=== PATIENT | female | born 1955 | race Caucasian/White ===

== ENCOUNTER 2018-01-21 10:29 | Observation (INO) ==
--- NOTE | 2018-01-21 10:59 | Emergency Department Note ---
ED Disposition Clinical Impression: COPD (chronic obstructive pulmonary disease), Tobacco use, Pneumonia Clinical Impression: (Ruled Out): DNR (do not resuscitate) Disposition: Still a Patient Condition on Discharge: Fair - Critical Care Critical Care Time: No Attestation: On 01/21/18, the high probability of a clinically significant, sudden or life threatening deterioration of the following system(s) required my full and direct attention, intervention and personal management. The time I documented below is in addition to time spent performing reported procedures but includes the following listed in this critical care notation. Medical Decision Making - Mike Inquiry Pt receiving controlled substance: No Mike was queried for this patient: No Vital Signs: 01/21/18 10:35 01/21/18 10:45 01/21/18 11:19 Temperature 97.8 F 98.1 F Temperature Source Oral Oral Pulse Rate 109 H Pulse Rate [Left Radial] 110 H 103 H Respiratory Rate 24 22 Blood Pressure [Right Arm] 150/91 139/73 Blood Pressure Mean [Right Arm] 110 95 Blood Pressure Source [Right Arm] Automatic Cuff Automatic Cuff Blood Pressure Position [Right Arm] Sitting Sitting 02 Sat by Pulse Oximetry 97 95 99 Oxygen Delivery Method Nasal Cannula Room Air Oxygen Flow Rate (LPM) 2 01/21/18 12:20 01/21/18 14:15 Temperature 97.5 F L 97.8 F Temperature Source Oral Oral Pulse Rate Pulse Rate [Left Radial] 104 H 102 H Respiratory Rate 20 20 Blood Pressure [Right Arm] 133/71 140/74 Blood Pressure Mean [Right Arm] 91 96 Blood Pressure Source [Right Arm] Automatic Cuff Automatic Cuff Blood Pressure Position [Right Arm] Sitting Sitting 02 Sat by Pulse Oximetry 99 99 Oxygen Delivery Method Room Air Nasal Cannula Oxygen Flow Rate (LPM) 4 - Lab Data Lab Results 01/21/18 10:45: WBC 12.3 H, RBC 4.88, Hgb 15.0, Hct 47.3 H, MCV 96.8, MCH 30.8, MCHC 31.8, RDW 13.4, Plt Count 390, MPV 8.5, Neut % (Auto) 82.1 H, Lymph % (Auto ) 12.8, Harvey % (Auto) 3.9, Eos % (Auto) 0.9, Baso % (Auto) 0.3, Neut # (Auto) 10.1 H, Lymph # (Auto) 1.6, Harvey # (Auto) 0.5, Eos # (Auto) 0.1, Baso # (Auto) 0.0 01/21/18 10:45: Sodium 139, Potassium 3.7, Chloride 101, Carbon Dioxide 28, Anion Gap 13.7, BUN 10, Creatinine 0.76, Estimated Creat Clear 30, Estimated GFR 77, Est GFR ( Amer) 94, Glucose 119 H, Calcium 9.4, Total Bilirubin 0.4, AST 21, ALT 24, Alkaline Phosphatase 114, Total Protein 8.6 H, Albumin 3.5 , Globulin 5.1 H, Albumin/Globulin Ratio 0.7 L 01/21/18 10:45: Lactic Acid 2.4 H 01/21/18 10:45: Urine Color Yellow, Urine Appearance Clear, Urine pH 5.0, Ur Specific [place] <= 1.005, Urine Protein Negative, Urine Glucose (UA) Negative, Urine Ketones Negative, Urine Blood Negative, Urine Nitrate Negative, Urine Bilirubin Negative, Urine Urobilinogen 0.2, Ur Leukocyte Esterase Negative, Urine WBC Occasional, Ur Squamous Epith Cells 3-5, Urine Bacteria Trace, Hyaline Casts Occasional, Urine Mucus 1+ 01/21/18 10:45: Total Creatine Kinase 83, CK-MB (CK-2) 1.4, CK-MB (CK-2) Rel Index 1.7, Troponin I < 0.02 01/21/18 10:45: D-Dimer 1850 H* 01/21/18 10:45: B-Natriuretic Peptide 122 H 01/21/18 12:23: Specimen Source Right brachial, O2 % 28%, ABG pH 7.39, ABG pCO2 38.4, ABG pO2 81.3, ABG HCO3 22.6, ABG Total CO2 23.7, ABG O2 Saturation 96, ABG Base Excess -2.4, Sam Test Non applicable Result diagrams: 01/21/18 10:45 01/21/18 10:45 Orders (Tests/Meds): ED MEDICATIONS Generic Name Dose Route Start Last Admin Trade Name Freq PRN Reason Stop Dose Admin Albuterol/Ipratropium 3 ml 01/21/18 14:22 Duoneb 3ml Neb IH 02/20/18 14:15 Q4HP PRN Shortness Of Breath Famotidine 20 mg 01/21/18 21:00 Pepcid 20mg/2ml Vial IV 02/20/18 20:59 BID REPLACED BY [facility] Sodium Chloride 1,000 mls @ 50 mls/hr 01/21/18 14:22 Sod Chlor 0.9% 1000ml Bag IV 02/20/18 14:21 .Q20H ZENY Azithromycin 500 mg/ Sodium 250 mls @ 250 mls/hr 01/21/18 14:30 Chloride IV 02/04/18 14:29 Q24H REPLACED BY [facility] Protocol Methylprednisolone Sodium Succinate 40 mg 01/21/18 14:30 Methylprednisolone Sod Succinate 40mg Vial IV 02/20/18 14:29 Q6H REPLACED BY [facility] Morphine Sulfate 1 mg 01/21/18 14:22 Morphine 4mg/Ml Syringe IV 02/20/18 14:21 Q4HP PRN Moderate Pain Nicotine 21 mg 01/21/18 14:22 Nicoderm 21mg/24hr Patch TD 02/20/18 14:21 DAILYP PRN Nicotine Cravings Ondansetron HCl 4 mg 01/21/18 14:22 Zofran 4mg/2ml Vial IV 02/20/18 14:21 Q8HP PRN Nausea Sodium Chloride 10 ml 01/21/18 14:22 Saline Flush 10ml Syringe IV 02/20/18 14:21 NEEDED PRN Maintain IV Site Sodium Chloride 8 ml 01/21/18 21:00 Saline Flush 10ml Syringe IV 02/20/18 20:59 BID ZENY Discontinued Medications Generic Name Dose Route Start Last Admin Trade Name Freq PRN Reason Stop Dose Admin Albuterol/Ipratropium 3 ml 01/21/18 10:40 01/21/18 10:49 Duoneb 3ml Neb 01/21/18 10:41 3 ml ONCE ONE Administration Albuterol/Ipratropium 3 ml 01/21/18 11:15 01/21/18 12:40 Duoneb 3ml Neb 02/20/18 11:14 3 ml Q1H ZENY Administration Albuterol/Ipratropium 3 ml 01/21/18 14:16 Duoneb 3ml Neb 02/20/18 14:15 Q4HP PRN Shortness Of Breath Famotidine 20 mg 01/21/18 21:00 01/21/18 11:12 Pepcid 20mg/2ml Vial IV 02/20/18 20:59 20 mg BID ZENY Administration Famotidine 20 mg 01/21/18 21:00 Pepcid 20mg/2ml Vial IV 02/20/18 20:59 BID ZENY Ceftriaxone Sodium 1 gm/ 50 mls @ 100 mls/hr 01/21/18 11:15 01/21/18 11:14 Sodium Chloride IV 02/04/18 11:14 100 mls/hr Q24H ZENY Administration Protocol Sodium Chloride 500 mls @ 999 mls/hr 01/21/18 11:15 01/21/18 11:12 Sod Chlor 0.9% 1000ml Bag IV 01/21/18 11:45 999 mls/hr .Q31M ZENY Administration Azithromycin 500 mg/ Sodium 250 mls @ 250 mls/hr 01/21/18 14:30 01/21/18 14: 35 Chloride IV 02/04/18 14:29 250 mls/hr Q24H ZENY Administration Protocol Iopamidol 75 ml 01/21/18 14:43 01/21/18 14:45 [id number]; 75ml Vial IV 01/21/18 14:44 75 ml ONCE ONE Administration Methylprednisolone Sodium Succinate 125 mg 01/21/18 11:04 01/21/18 11:12 Solu-Medrol 125mg/2ml Vial IV 01/21/18 11:05 125 mg ONCE ONE Administration Methylprednisolone Sodium Succinate 40 mg 01/21/18 14:30 Methylprednisolone Sod Succinate 40mg Vial IV 02/20/18 14:29 Q6H ZENY Morphine Sulfate 1 mg 01/21/18 12:11 01/21/18 12:18 Morphine 2mg/Ml Syringe IV 01/21/18 12:12 1 mg ONCE ONE Administration Nitroglycerin 0.5 gm 01/21/18 11:15 01/21/18 11:15 Nitroglycerin 1 Inch Oint Udp TD 02/20/18 11:14 0.5 gm Q8H ZENY Administration Sodium Chloride 8 ml 01/21/18 11:04 01/21/18 11:12 Saline Flush 10ml Syringe IV 01/21/18 11:05 8 ml ONCE ONE Administration Sodium Chloride 8 ml 01/21/18 21:00 Saline Flush 10ml Syringe IV 02/20/18 20:59 BID ZENY Sodium Chloride 10 ml 01/21/18 14:43 01/21/18 14:45 Rad-Saline Flush 10ml Syringe IV 01/21/18 14:44 10 ml ONCE ONE Administration Sodium Chloride 50 ml 01/21/18 14:43 01/21/18 14:44 Rad-Ns 50ml Vial IV 01/21/18 14:44 50 ml ONCE ONE Administration ORDERS Category Date Time Status Lactic Acid Follow Up (4 hr) Stat Lab 01/21/18 15:00 Received Blood Culture Stat Micro 01/21/18 10:45 Received Sputum Culture & Gram Stain Stat Micro 01/21/18 11:00 Results - Radiology Data #1 Image(s): Chest Image Reviewed: Yes I reviewed the patient's radiology image, Yes I have reviewed radiologist's interpretation Preliminary Findings: Abnormal COPD with no acute infiltrates. final report: IMPRESSION: COPD/emphysema with chronic changes, no acute finding - ECG Data Tracing #1 Sinus tachycardia 105 right axis deviation right atrial enlargement incomplete right bundle branch block and right ventricular hypertrophy. ECG initial impression date: 01/21/18 ECG initial impression time: 11:14 Medical Decision Narrative: I had a discussion with Katherine about her CODE STATUS especially with her lung cancer history and refusal of treatment. The patient decided to be DNR. 1225 the patient told me that she is anxious to live anxious to and she decided to be a full code. Chest Pain HPI - General Chief Complaint: Shortness of Breath/Dyspnea Stated Complaint: SOA vomiting Time Seen by Provider: 01/21/18 10:30 Mode of Arrival: Wheelchair Limitations: No Limitations Description of Symptoms (Recalled from ER Triage Doc. by RN): SOA, Cough, weakness, states she has lung ca but does not get treatment for this. Family says her oxygen was 92 at home on nc - History of Present Illness HPI narrative: 62 years old white female smoker with history of COPD and lung cancer with no primary care physician or lung cancer specialist. The patient and her family confirms that she refused radiation therapy and chemotherapy 2 years ago. 3 days ago, the patient developed fever ,chills, and productive sputum. At 3 AM this morning she started developing right lower sharp chest pain rated 7/10 that is worse with deep breathing and coughing. She was brought to the ED by her son. complaint: chest pain Onset (ago): hour(s) (7-8 hours.) Duration: constant Activity at onset: during rest Pain location: substernal Severity: moderate Quality: tightness Pain radiation: none Relieving factors: nothing Exacerbating factors: exertion Associated symptoms: dyspnea, fever, cough Risk Factors for CAD: Hypertension, Smoking Treatments prior to or on arrival for Cardiac Chest Pain: none - Related Data Home Medications Medication Instructions Recorded Confirmed Ibuprofen [Motrin 200mg/10mL Oral 200 mg PO Q6H 01/21/18 01/21/18 Susp] Ipratropium/Albuterol Sulfate 3 ml IH Q4-6H PRN 01/21/18 01/21/18 [Duoneb 3mL neb] diphenhydrAMINE HCl [Benadryl] 25 mg PO DAILY 01/21/18 01/21/18 Allergies Allergy/AdvReac Type Severity Reaction Status Date / Time clopidogrel [From PLAVIX] Allergy Unknown S-SKIN Verified 01/21/18 10:46 ERUPTIONS [facility] History I have reviewed the patient's past medical history: No - Social History Smoking Status: Current every day smoker # Packs/Day (cigarettes): 1 Alcohol Intake: current Alcohol Intake Frequency:: 0-2 drinks per day - Psychiatric History Expresses thoughts of harming self/others: None Suicide Plan Description: No Plan ROS Obtained: Yes All systems reviewed & no additional complaints Physical Exam - General General appearance: alert, in distress, other (She is alert oriented 3 she is in mild to moderate respiratory distress. ) - Head Head exam: atraumatic, normocephalic, normal inspection - Eye Eye exam: Present: PERRL, EOMI. Absent: scleral icterus - ENT ENT exam: Present: normal exam, normal oropharynx, mucous membranes moist, TM's normal bilaterally, normal external ear exam - Neck Neck exam: Present: normal inspection, full ROM, trachea midline. Absent: meningismus, lymphadenopathy - Chest Chest inspection: Present: normal inspection, symmetric chest wall rise - Respiratory Respiratory exam: Present: respiratory distress (Decreased air entry bilaterally.), accessory muscle use, prolonged expiratory phase - Cardiovascular Cardiovascular exam: Present: regular rate, normal rhythm. Absent: JVD - Abdominal Exam Abdominal exam: Present: soft, normal bowel sounds. Absent: distention, tenderness, guarding, rebound - Extremities Exam Extremities exam: Present: normal inspection, full ROM, normal capillary refill. Absent: calf tenderness - Back Exam Back exam: Present: normal inspection. Absent: tenderness - Neurological Exam Neurological exam: Present: alert, oriented X3, CN II-XII intact, motor sensory deficit, reflexes normal - Psychiatric Psychiatric exam: Present: normal affect, normal mood - Skin Skin exam: Present: warm, dry, intact, normal color
[2018-01-21 11:06] LABS: Basophils % 0.3 % (0.1-2.0); Eosinophils # 0.1 K/mm3 (0.0-0.4); Eosinophils % 0.9 % (0.1-12.0); Hematocrit 47.3 % (37.0-47.0); Lymphocytes # 1.6 K/mm3 (0.7-4.5); Lymphocytes % 12.8 K/mm3 (10-50); Mean Corpuscular HGB Conc 31.8 g/dL (31.8-35.4); Mean Corpuscular Hemoglobin 30.8 pg (27.0-31.2); Mean Corpuscular Volume 96.8 fl (81-99); Mean Platelet Volume 8.5 fl (7.4-10.4); Monocytes # 0.5 K/mm3 (0.1-1.0); Monocytes % 3.9 % (1.7-9.3); Neutrophils # 10.1 K/mm3 (1.8-7.8); Neutrophils % 82.1 % (37.0-80.0); Platelet Count 390 K/mm3 (142-424); Red Blood Count 4.88 M/mm3 (4.20-5.40); Red Cell Distribution Width 13.4 % (11.5-17.5); White Blood Count 12.3 K/mm3 (4.8-10.8)
[2018-01-21 11:11] LABS: Microscopic, Urine URINE MICROSCOPIC (MICROSCOPIC)
[2018-01-21 11:13] LABS: Albumin Level 3.5 gm/dL (3.4-5.0); Albumin/Globulin Ratio 0.7 (1.1-1.8); Anion Gap 13.7 mEq/L (5-15); Bilirubin,Total 0.4 mg/dL (0.2-1.0); Calcium 9.4 mg/dL (8.5-10.1); Globulin 5.1 gm/dl (1.3-3.2); Potassium 3.7 mmoL/L (3.5-5.1); Total Protein,Serum 8.6 gm/dL (6.4-8.2)
[2018-01-21 11:14] LABS: Appearance,Urine CLEAR (Clear); Bilirubin,Urine Negative (Negative); Blood, Urine Negative (Negative); Color,Urine YELLOW (Yellow); Glucose,Urine (UA) Negative (Negative); Ketones,Urine Negative (Negative); Leukocyte Esterase,Urine Negative (Negative); Protein,Urine Negative (Negative); Specific Gravity, Urine <= 1.005 (1.005-1.030); Urobilinogen,Urine 0.2 EU/dl (0.2)
[2018-01-21 11:39] LABS: Creatine Kinase 83 U/L (26-192)
[2018-01-21 11:44] LABS: Bacteria,Urine Trace /lpf; Hyaline Casts,Urine Occasional #/lpf (0); Mucus,Urine 1+ /lpf; WBC,Urine Occasional #/hpf (0-3)
[2018-01-21 12:52] LABS: ABG Base Excess -2.4 mmol/L (-2.4-2.3); ABG HCO3 22.6 mmhg (22.0-26.0); ABG Oxygen Saturation 96 % (90-100); ABG PCO2 38.4 mmhg (35.0-45.0); ABG PH 7.39 mmol/L (7.35-7.45); ABG PO2 81.3 mmhg (80-100); ABG TCO2 23.7 mmhg (23-27)
[2018-01-21 12:55] LABS: Allen's Test Non Applicable; Oxygen 28% %
[2018-01-22 07:08] LABS: Basophils % 0.1 % (0.1-2.0); Eosinophils % 0.2 % (0.1-12.0); Hematocrit 42.1 % (37.0-47.0); Lymphocytes # 1.1 K/mm3 (0.7-4.5); Lymphocytes % 11.8 K/mm3 (10-50); Mean Corpuscular HGB Conc 31.5 g/dL (31.8-35.4); Mean Corpuscular Hemoglobin 30.7 pg (27.0-31.2); Mean Corpuscular Volume 97.2 fl (81-99); Mean Platelet Volume 8.1 fl (7.4-10.4); Monocytes # 0.2 K/mm3 (0.1-1.0); Monocytes % 2.7 % (1.7-9.3); Neutrophils # 7.7 K/mm3 (1.8-7.8); Neutrophils % 85.2 % (37.0-80.0); Platelet Count 371 K/mm3 (142-424); Red Blood Count 4.33 M/mm3 (4.20-5.40); Red Cell Distribution Width 13.5 % (11.5-17.5)
[2018-01-22 07:21] LABS: Hemoglobin 13.3 g/dL (12.2-16.2)
--- NOTE | 2018-01-22 08:08 | H&P/Discharge Summary ---
General - General Admission date: 01/21/18 Discharge date: 01/22/18 *Admission Date: 01/21/18 *Chief complaint: shortness of breath *History of present illness: 62-year-old female with COPD who continues to smoke presented to the emergency department yesterday with increasing shortness of breath with cough and minimal sputum production. Patient underwent evaluation the emergency department was felt to be having a COPD exacerbation. Patient complained of right-sided chest pain so CT scan was performed to rule out pulmonary embolism and this showed some patchy pneumonic infiltrates. Patient was placed on Solu-Medrol, duo nebs , Rocephin, azithromycin and admitted overnight for observation. She has not had an oxygen requirement has maintained O2 sats at 93% or above. She denies fevers at home. She continues to smoke cigarettes which she realizes his mistake. She has been on Advair in the past but is no longer taking this due to medical noncompliance [facility] History Medical History: Reports:: Cancer, Congestive Heart Failure, Coronary Artery Disease, Palpitations, Peripheral Vascular Disease Denies:: Diabetes Mellitus Type 1, Diabetes Mellitus Type 2, MRSA Other Medical History: Reports: Hoarseness Laterality Cases: Right: Carpal Tunnel Release Other Surgeries: Yes: Hysterectomy-Total Amputation: No Fractures: No - *Social History Educational Level: Attended College Smoking Status: Current every day smoker Tobacco Type: cigarettes # Packs/Day (cigarettes): 1 Alcohol Intake: current Alcohol Intake Frequency:: 0-2 drinks per day Occupational Status: disabled Housing: apartment Household Members: friend(s) - Psychiatric History Expresses thoughts of harming self/others: None Suicide Plan Description: No Plan *Family Hx:: Adopted, Cancer, Coronary Artery Disease, Heart Attack, Hyperlipidemia, Hypertension Review of Systems - Constitutional Denies body ache(s), Denies chills - *Cardiovascular Denies chest pain, Denies chest pain with activity - *Respiratory Reports chest congestion, Reports cough, Reports shortness of breath Exam Vital signs and Labs for Last 24 Hours: Temp Pulse Resp BP Pulse Ox 98.2 F 90 21 105/54 96 01/22/18 03:45 01/22/18 04:00 01/22/18 03:45 01/22/18 03:45 01/22/18 03:45 Laboratory Results - last 24 hr 01/21/18 16:51: Lactic Acid Fup @ 2Hr 1.9 01/21/18 19:50: Troponin I < 0.02 01/22/18 01:50: Troponin I < 0.02 01/22/18 06:37: WBC 9.0 D, RBC 4.33, Hgb 13.3 D, Hct 42.1, MCV 97.2, MCH 30.7 , MCHC 31.5 L, RDW 13.5, Plt Count 371, MPV 8.1, Neut % (Auto) 85.2 H, Lymph % ( Auto) 11.8, [place] % (Auto) 2.7, Eos % (Auto) 0.2, Baso % (Auto) 0.1, Neut # (Auto ) 7.7, Lymph # (Auto) 1.1, [place] # (Auto) 0.2, Eos # (Auto) 0.0, Baso # (Auto) 0.0 01/22/18 06:37: Sodium 138, Potassium 4.0, Chloride 103, Carbon Dioxide 27, Anion Gap 12.0, BUN 6 L D, Creatinine 0.56 D, Estimated Creat Clear 37, Estimated GFR 110, Est GFR ( Amer) 133 D, Glucose 116 H I & O for Last 24 hours: Intake & Output 01/19/18 01/20/18 01/21/18 01/22/18 11:59 11:59 11:59 11:59 Intake Total 4133 / 4133 Output Total 2099 / 2099 Balance 2032 / 2032 Weight 87 lb 6 oz Narrative: Thin female in no distress. Oropharynx is moist. Neck is without lymphadenopathy or carotid bruits. Lungs have fair aeration with distant breath sounds and expiratory wheezes heard in the right posterior midlung. No focal rales are heard. Abdomen is thin, soft, nontender, nondistended. Patient has active range of motion in all extremities and no focal neurologic deficits. Hospital Course Hospital Course: Patient was admitted on Solu-Medrol, Rocephin, azithromycin, duo nebs. She did not develop any oxygen requirement. By the following morning patient was feeling better. She was observed throughout the day and then discharged to home later on in the day to continue course of antibiotics. She will follow-up with her primary care provider later this week. Patient has been restarted on Advair Results Labs on day of discharge: Labs from last 24 hours 01/22/18 01/22/18 01/22/18 06:37 06:37 01:50 WBC 9.0 D RBC 4.33 Hgb 13.3 D Hct 42.1 MCV 97.2 MCH 30.7 MCHC 31.5 L RDW 13.5 Plt Count 371 MPV 8.1 Neut % (Auto) 85.2 H Lymph % (Auto) 11.8 [place] % (Auto) 2.7 Eos % (Auto) 0.2 Baso % (Auto) 0.1 Neut # (Auto) 7.7 Lymph # (Auto) 1.1 [place] # (Auto) 0.2 Eos # (Auto) 0.0 Baso # (Auto) 0.0 Sodium 138 Potassium 4.0 Chloride 103 Carbon Dioxide 27 Anion Gap 12.0 BUN 6 L D Creatinine 0.56 D Estimated Creat Clear 37 Estimated GFR 110 Est GFR ( Amer) 133 D Glucose 116 H Lactic Acid Fup @ 2Hr Troponin I < 0.02 01/21/18 01/21/18 19:50 16:51 WBC RBC Hgb Hct MCV MCH MCHC RDW Plt Count MPV Neut % (Auto) Lymph % (Auto) [place] % (Auto) Eos % (Auto) Baso % (Auto) Neut # (Auto) Lymph # (Auto) [place] # (Auto) Eos # (Auto) Baso # (Auto) Sodium Potassium Chloride Carbon Dioxide Anion Gap BUN Creatinine Estimated Creat Clear Estimated GFR Est GFR ( Amer) Glucose Lactic Acid Fup @ 2Hr 1.9 Troponin I < 0.02 DS: Diagnosis - Discharge Diagnosis (1) COPD with exacerbation Status: Acute (2) Cigarette smoker Status: Acute (3) Pneumonia Status: Acute Discharge Medications Discharge Medications: Home Medications Medication Instructions Recorded Confirmed Type Albuterol Sulfate [Albuterol HFA 1 - 2 puffs IH Q4-6H PRN 01/21/18 01/21/18 History Inhaler] Aspirin [Aspir 81] 81 mg PO DAILY 01/21/18 01/21/18 History Ibuprofen [Motrin 200mg/10mL Oral 200 mg PO Q6H 01/21/18 01/21/18 History Susp] Ipratropium/Albuterol Sulfate 3 ml IH Q4-6H PRN 01/21/18 01/21/18 History [Duoneb 3mL neb] Polyethylene Glycol 3350 [Miralax 17 gm PO DAILY 01/21/18 01/21/18 History 17gm Packet] diphenhydrAMINE HCl [Benadryl] 25 mg PO DAILY 01/21/18 01/21/18 History Disposition Disposition: Home, Self-Care
[2018-01-22 09:18] LABS: Lymphocytes % 12 % (10-50); Neutrophils % 88 % (42-76); RBC Morphology Normal; Total Cells Counted 100
--- NOTE | 2018-01-22 10:08 | Pharmacy Consult Notes ---
[facility] Pharmacy VTE Monitoring - Patient Demographics Admission date: 01/21/18 Report Date: 01/22/18 Time: 10:08 Allergies/Adverse Reactions: Patient Allergies clopidogrel [From PLAVIX] Allergy (Unknown, Verified 01/21/18 10:46) S-SKIN ERUPTIONS Height: 1.63 m Weight: 39.633 kg Patient Problems: Current Active Problems COPD (chronic obstructive pulmonary disease) (Acute) Tobacco use (Acute) Pneumonia (Acute) COPD with exacerbation (Acute) Cigarette smoker (Acute) - VTE Risk Labs: VTE Related Lab Results Hgb 13.3 g/dL (12.2-16.2) D 01/22/18 06:37 Hct 42.1 % (37.0-47.0) 01/22/18 06:37 Plt Count 371 K/mm3 (142-424) 01/22/18 06:37 BUN 6 mg/dL (7-18) L D 01/22/18 06:37 Creatinine 0.56 mg/dL (0.55-1.02) D 01/22/18 06:37 Estimated Creat Clear 37 mL/min (0-300) 01/22/18 06:37 VTE Score: 4 VTE Risk Level: Low Risk - Prophylaxis VTE Prophylaxis Ordered?: Yes Types of VTE Prophylaxis: TEDS Knee High Location of Applied Device: Bilateral Lower Extremeties - VTE Diagnosis Confirmed Treatment or plan recommended: Continue Current Treatment
== END 2018-01-22 14:55 | disposition home or self-care (01) ==
LOC: ER 10:29 → 2ND 10:29
PROVIDERS: ADMIT Family Medicine; ATTEND Family Medicine

== ENCOUNTER 2018-04-09 20:05 | Inpatient (IN) ==
--- NOTE | 2018-04-09 20:23 | Emergency Department Note ---
ED Disposition Clinical Impression: Hypoxia, Thrombocytosis LLL pneumonia Qualifiers: Pneumonia type: due to unspecified organism Qualified Code(s): J18.1 - Lobar pneumonia, unspecified organism Leukocytosis Qualifiers: Leukocytosis type: unspecified Qualified Code(s): D72.829 - Elevated white blood cell count, unspecified Disposition: Admitted As Inpatient Condition on Discharge: Serious Time of Disposition: 22:12 - Critical Care Critical Care Time: Yes Attestation: On 04/09/18, the high probability of a clinically significant, sudden or life threatening deterioration of the following system(s) required my full and direct attention, intervention and personal management. The time I documented below is in addition to time spent performing reported procedures but includes the following listed in this critical care notation. Total Critical Care Time: 90 Vital system(s) involved:: Respiratory Failure My critical care processes included: Assessment & monitoring of V/S, Initial and Re-exams, Data Review/Interpretation, Coordinating Care, Medication Orders and management, Documentation Medical Decision Making - Medical Records Medical records reviewed: Yes: I reviewed the patient's medical records. - Mike Inquiry Pt receiving controlled substance: No Vital Signs: 04/09/18 20:09 04/09/18 20:27 04/09/18 20:44 Temperature 101.5 F H 100.5 F H Temperature Source Oral Oral Pulse Rate Pulse Rate [Right Brachial] 137 H 140 H 140 H Respiratory Rate 26 H 26 H 24 Blood Pressure Blood Pressure [Right Arm] 157/86 159/99 159/99 Blood Pressure Mean [Right Arm] 109 119 119 Blood Pressure Source [Right Arm] Automatic Cuff Automatic Cuff Automatic Cuff Blood Pressure Position [Right Arm] Sitting Supine Sitting 02 Sat by Pulse Oximetry 85 L 91 L 92 L Oxygen Delivery Method Room Air Nasal Cannula Oxygen Flow Rate (LPM) 3 04/09/18 21:16 04/09/18 21:45 04/09/18 22:00 Temperature Temperature Source Pulse Rate Pulse Rate [Right Brachial] 125 H 116 H 116 H Respiratory Rate 26 H 24 22 Blood Pressure Blood Pressure [Right Arm] 159/99 109/57 100/66 Blood Pressure Mean [Right Arm] 119 74 77 Blood Pressure Source [Right Arm] Automatic Cuff Automatic Cuff Blood Pressure Position [Right Arm] Supine Sitting 02 Sat by Pulse Oximetry 94 L 94 L 92 L Oxygen Delivery Method Nasal Cannula Nasal Cannula Nasal Cannula Oxygen Flow Rate (LPM) 3 3 3 04/09/18 22:36 04/09/18 22:41 Temperature 99.4 F 99.4 F Temperature Source Oral Pulse Rate 111 H Pulse Rate [Right Brachial] 111 H Respiratory Rate 24 22 Blood Pressure 110/71 Blood Pressure [Right Arm] 110/71 Blood Pressure Mean [Right Arm] 84 Blood Pressure Source [Right Arm] Blood Pressure Position [Right Arm] 02 Sat by Pulse Oximetry 94 L Oxygen Delivery Method Nasal Cannula Nasal Cannula Oxygen Flow Rate (LPM) 3 3 - Lab Data Lab results reviewed: Yes: I reviewed the patient's lab results. Lab Results 04/09/18 20:25: Lactic Acid 2.8 H 04/09/18 20:25: WBC 16.3 H, RBC 5.02, Hgb 14.7, Hct 47.7 H, MCV 95.0, MCH 29.2, MCHC 30.8 L, RDW 14.5, Plt Count 456 H, MPV 8.4, Neut % (Auto) 84.0 H, Lymph % ( Auto) 11.4, Desha % (Auto) 3.6, Eos % (Auto) 0.7, Baso % (Auto) 0.3, Neut # (Auto ) 13.7 H, Lymph # (Auto) 1.9, Desha # (Auto) 0.6, Eos # (Auto) 0.1, Baso # (Auto ) 0.1, Total Counted 100, Neutrophils % (Manual) 80 H, Band Neutrophils % 8.0, Lymphocytes % (Manual) 11, Monocytes % (Manual) 1 L, Platelet Estimate Slight increase, Hypochromasia 1+, Macrocytosis 1+, Rouleaux 1+ 04/09/18 20:25: Sodium 138, Potassium 4.4, Chloride 99, Carbon Dioxide 31, Anion Gap 12.4, BUN 12, Creatinine 0.84, Estimated Creat Clear 36, Estimated GFR 69, Est GFR ( Amer) 83, Glucose 88, Calcium 9.6, Total Bilirubin 0.3 , AST 22, ALT 22, Alkaline Phosphatase 116, Troponin I < 0.02, Total Protein 8.8 H, Albumin 4.1, Globulin 4.7 H, Albumin/Globulin Ratio 0.9 L 04/09/18 20:25: B-Natriuretic Peptide 279 H 07/01/18 20:37: Specimen Source R/r, O2 % 3, ABG pH 7.44, ABG pCO2 42.8, ABG pO2 53.9 L, ABG HCO3 28.4 H, ABG Total CO2 29.7 H, ABG O2 Saturation 89 L, ABG Base Excess 4.2 H, Sam Test Y Result diagrams: 04/09/18 20:25 04/09/18 20:25 Orders (Tests/Meds): ED MEDICATIONS Generic Name Dose Route Start Last Admin Trade Name Freq PRN Reason Stop Dose Admin Acetaminophen 650 mg 04/09/18 22:43 Acetaminophen 325mg Tab PO 05/09/18 22:42 Q6HP PRN Fever > 100.4 Albuterol/Ipratropium 3 ml 04/09/18 22:39 Duoneb 3ml Neb IH 05/09/18 22:38 Q4-6H PRN Shortness Of Breath Aspirin 81 mg 04/10/18 09:00 Aspirin 81mg Enteric Coated Tablet PO 05/10/18 08:59 DAILY [facility] Bupropion HCl 150 mg 04/10/18 09:00 Wellbutrin Sr 150mg Tablet PO 05/10/18 08:59 DAILY [facility] Azithromycin 500 mg/ Sodium 250 mls @ 250 mls/hr 04/10/18 20:30 Chloride IV 04/23/18 20:29 Q24H ZENY Protocol Ceftriaxone Sodium 1 gm/ 50 mls @ 100 mls/hr 04/10/18 20:30 Sodium Chloride IV 04/23/18 20:29 Q24H [facility] Protocol Ibuprofen 400 mg 04/09/18 22:43 Motrin 400mg Tablet PO 05/09/18 22:42 Q6HP PRN Fever > 100.4 Non-Formulary Medication 1 each 04/10/18 09:00 Benazepril/Hydrochlorothiazide [Benazepril-Hctz 5-6.25 Mg Tab] PO 05/10/18 08:59 DAILY [facility] Non-Formulary Medication 1 each 04/10/18 09:00 Umeclidinium Brm/Vilanterol Tr [Anoro Ellipta 62.5-25 Mcg Inh] IH 05/10/18 08:59 DAILY [facility] Ropinirole HCl 1 mg 04/10/18 21:00 Requip 1mg Tablet PO 05/10/18 20:59 HS [facility] Sodium Chloride 3 ml 04/09/18 22:39 Sodium Chloride 3% 15ml Neb 05/09/18 20:27 ONCE PRN INDUCE SPUTUM [employer]LECTION Discontinued Medications Generic Name Dose Route Start Last Admin Trade Name Karolina PRN Reason Stop Dose Admin Acetaminophen 1,000 mg 04/09/18 20:25 04/09/18 20:48 Tylenol 500mg Tablet PO 04/09/18 20:26 Not Given ONCE ONE Acetaminophen 650 mg 04/09/18 20:27 04/09/18 20:33 Acetaminophen 325mg Tab PO 04/09/18 20:28 650 mg ONCE ONE Administration Albuterol/Ipratropium 3 ml 04/09/18 20:25 04/09/18 20:33 Duoneb 3ml Neb 04/09/18 20:26 3 ml ONCE ONE Administration Albuterol/Ipratropium 3 ml 04/09/18 20:25 04/09/18 20:48 Duoneb 3ml Neb 04/09/18 20:26 Not Given ONCE ONE Ceftriaxone Sodium 1 gm/ 50 mls @ 100 mls/hr 04/09/18 20:30 04/09/18 20:33 Sodium Chloride IV 04/23/18 20:29 100 mls/hr Q24H ZENY Administration Protocol Azithromycin 500 mg/ Sodium 250 mls @ 250 mls/hr 04/09/18 20:30 04/09/18 20: 44 Chloride IV 04/23/18 20:29 250 mls/hr Q24H ZENY Administration Protocol Sodium Chloride 1,000 mls @ 999 mls/hr 04/09/18 21:45 04/09/18 21:38 Sod Chlor 0.9% 1000ml Bag IV 04/09/18 22:45 999 mls/hr .Q1H1M ZENY Administration Ibuprofen 400 mg 04/09/18 20:25 04/09/18 20:32 Motrin 400mg Tablet PO 04/09/18 20:26 400 mg ONCE ONE Administration Methylprednisolone Sodium Succinate 125 mg 04/09/18 20:25 04/09/18 20:33 Solu-Medrol 125mg/2ml Vial IV 04/09/18 20:26 125 mg ONCE ONE Administration Sodium Chloride 3 ml 04/09/18 20:28 Sodium Chloride 3% 15ml [facility] 05/09/18 20:27 ONCE PRN INDUCE SPUTUM [employer]LECTION ORDERS Category Date Time Status XR chest portable Stat Exams 04/09/18 20:25 Taken Blood Culture Stat Micro 04/09/18 20:28 Received Sputum Culture & Gram Stain Stat Micro 04/09/18 23:08 Results ECG Request by /Quinn Stat Y 04/09/18 20:24 Stop Req ECG Request by /Quinn Stat Y 04/09/18 20:25 Stop Req - Radiology Data #1 Image(s): Chest Image Reviewed: Yes I reviewed the patient's radiology results Preliminary Findings: Abnormal LLL infiltrate - ECG Data Tracing #1 I reviewed this ECG and interpreted as documented below: Heart rate 88, no ectopy, no acute ischemic changes. ECG normal with no acute: arrhythmias, ischemia, conduction abnormalities, chamber hypertrophy Normal Sinus Rhythm: Yes - Physician Consults Physician Consulted: Dr Salazar Time: 22:05 Reason -: Admission, Pt condition Comment/Response: Advised of patient's presentation and findings, agreeable with admission, agreeable with choice of antibiotics given. At time of admission patient was in stable medical condition, presented with increased need of oxygen supply, now to 3.5 L/min, responding to treatment so far given, afebrile. - Reevaluation(s) Time: 22:05 Reevaluation #1: Patient stable, fever coming down, antibiotics in process. Resp/SOB HPI - General Chief Complaint: Shortness of Breath/Dyspnea Stated Complaint: SOB,Fever,weakness Time Seen by Provider: 04/09/18 20:05 Mode of Arrival: Wheelchair Source of Information: Patient Limitations: No Limitations Description of Symptoms (Recalled from ER Triage Doc. by RN): Reports soa for the past 2-3 days, wears oxygen at home. Reports fever, and productive cough. Room air saturation on arrival is 85%. Reports that she has a lung nodule on the left. - History of Present Illness This is a 63-year-old female patient, oxygen dependent on 2lpm, with known history of COPD presented to the ER with 4 days of shortness of breath, productive cough gradually getting worse over the past 24 hours. Upon arrival her oxygen saturation by pulse oximetry was 85% on room air. Patient found out in the emergency room that she is running a fever as well. Denies any history of recent travel, or recent exposure to sick contacts. Denies chest pain, but noticed recently that she is more short of breath with exertion. She had an increased need for bronchodilators over the past 24 hours, as her symptoms have exacerbated. MD Complaint: shortness of breath Onset (ago): day(s) (4) Context: recent illness Severity: moderate Consistency/Duration: constant Relieving factors: oxygen, bronchodilators Exacerbating factors: exertion, movement, coughing Known history of: COPD Associated symptoms: wheezing, sputum production (Productive), diaphoresis Treatment prior to arrival: oxygen, bronchodilator - Related Data Home oxygen amount: 2 liters Home Medications Medication Instructions Recorded Confirmed Albuterol Sulfate [Albuterol HFA 1 - 2 puffs IH Q4-6H PRN 01/21/18 04/09/18 Inhaler] Aspirin [Aspir 81] 81 mg PO DAILY 01/21/18 04/09/18 Ipratropium/Albuterol Sulfate 3 ml IH Q4-6H PRN 01/21/18 04/09/18 [Duoneb 3mL neb] Polyethylene Glycol 3350 [Miralax 17 gm PO DAILY 01/21/18 04/09/18 17gm Packet] Benazepril/Hydrochlorothiazide 1 each PO DAILY 04/09/18 04/09/18 [Benazepril-Hctz 5-6.25 mg Tab] Fluticasone Propionate [Flovent 250 mcg IH BID 04/09/18 04/09/18 Diskus] Ropinirole HCl 1 mg PO HS 04/09/18 04/09/18 Umeclidinium Brm/Vilanterol Tr 1 each IH DAILY 04/09/18 04/09/18 [Anoro Ellipta 62.5-25 Mcg INH] buPROPion HCl [Wellbutrin SR 150mg 150 mg PO DAILY 04/09/18 04/09/18 Tablet] Allergies Allergy/AdvReac Type Severity Reaction Status Date / Time clopidogrel [From PLAVIX] Allergy Unknown S-SKIN Verified 01/21/18 10:46 ERUPTIONS [facility] History I have reviewed the patient's past medical history: Yes Medical History: Reports:: Congestive Heart Failure, Coronary Artery Disease, Palpitations, Peripheral Vascular Disease Denies:: Cancer, Diabetes Mellitus Type 1, Diabetes Mellitus Type 2, MRSA Other Medical History: Reports: Hoarseness Laterality Cases: Right: Carpal Tunnel Release Other Surgeries: Yes: Hysterectomy-Total Amputation: No Fractures: No - Social History Smoking Status: Current every day smoker Tobacco Type: cigarettes # Packs/Day (cigarettes): 1 Alcohol Intake: never Alcohol Intake Frequency:: 0-2 drinks per day Occupational Status: disabled Housing: apartment Household Members: friend(s) - Psychiatric History Expresses thoughts of harming self/others: None Suicide Plan Description: No Plan Family Hx:: Adopted, Cancer, Coronary Artery Disease, Heart Attack, Hyperlipidemia, Hypertension ROS Obtained: Yes All systems reviewed & no additional complaints, Yes Systems reviewed as appropriate & no additional complaints - Respiratory Respiratory: Yes system reviewed and no additional complaints, except as docu, Yes as per HPI, Yes cough Physical Exam - General General appearance: alert, in distress (Moderate) - Head Head exam: atraumatic, normocephalic, normal inspection - Neck Neck exam: Present: normal inspection, full ROM, trachea midline. Absent: meningismus, lymphadenopathy - Chest Chest inspection: Present: normal inspection, symmetric chest wall rise. Absent : tenderness - Respiratory Respiratory exam: Present: respiratory distress, wheezes - Cardiovascular Cardiovascular exam: Present: normal rhythm, tachycardia. Absent: JVD - Abdominal Exam Abdominal exam: Present: soft, normal bowel sounds. Absent: distention, tenderness, guarding - Extremities Exam Extremities exam: Present: normal inspection, full ROM, normal capillary refill. Absent: calf tenderness - Neurological Exam Neurological exam: Present: alert, oriented X3, CN II-XII intact, normal gait - Psychiatric Psychiatric exam: Present: normal affect, normal mood - Skin Skin exam: Present: warm, dry, intact, normal color
[2018-04-09 20:38] LABS: ABG Base Excess 4.2 mmol/L (-2.4-2.3); ABG HCO3 28.4 mmhg (22.0-26.0); ABG Oxygen Saturation 89 % (90-100); ABG PCO2 42.8 mmhg (35.0-45.0); ABG PH 7.44 mmol/L (7.35-7.45); ABG PO2 53.9 mmhg (80-100); ABG TCO2 29.7 mmhg (23-27)
[2018-04-09 20:39] LABS: Allen's Test Y; Oxygen 3 %
[2018-04-09 20:50] LABS: Basophils # 0.1 K/mm3 (0-0.2); Basophils % 0.3 % (0.1-2.0); Eosinophils # 0.1 K/mm3 (0.0-0.4); Eosinophils % 0.7 % (0.1-12.0); Hematocrit 47.7 % (37.0-47.0); Hemoglobin 14.7 g/dL (12.2-16.2); Lymphocytes # 1.9 K/mm3 (0.7-4.5); Lymphocytes % 11.4 K/mm3 (10-50); Mean Corpuscular HGB Conc 30.8 g/dL (31.8-35.4); Mean Corpuscular Hemoglobin 29.2 pg (27.0-31.2); Mean Platelet Volume 8.4 fl (7.4-10.4); Monocytes # 0.6 K/mm3 (0.1-1.0); Monocytes % 3.6 % (1.7-9.3); Neutrophils # 13.7 K/mm3 (1.8-7.8); Platelet Count 456 K/mm3 (142-424); Red Blood Count 5.02 M/mm3 (4.20-5.40); Red Cell Distribution Width 14.5 % (11.5-17.5); White Blood Count 16.3 K/mm3 (4.8-10.8)
[2018-04-09 21:12] LABS: Alanine Aminotransferase 22 U/L (12-78); Albumin Level 4.1 gm/dL (3.4-5.0); Albumin/Globulin Ratio 0.9 (1.1-1.8); Alkaline Phosphatase 116 U/L (46-116); Anion Gap 12.4 mEq/L (5-15); Aspartate Amino Transferase 22 U/L (15-37); Bilirubin,Total 0.3 mg/dL (0.2-1.0); Blood Urea Nitrogen 12 mg/dL (7-18); Calcium 9.6 mg/dL (8.5-10.1); Carbon Dioxide 31 mmol/L (21.0-32.0); Chloride 99 mmol/L (98-107); Globulin 4.7 gm/dl (1.3-3.2); Glucose 88 mg/dL (74-106); Potassium 4.4 mmoL/L (3.5-5.1); Sodium 138 mmol/L (136-145); Total Protein,Serum 8.8 gm/dL (6.4-8.2)
[2018-04-09 21:17] LABS: Lymphocytes % 11 % (10-50); Monocytes % 1 % (2-9); Neutrophils % 80 % (42-76); Total Cells Counted 100
[2018-04-09 21:18] LABS: Hypochromasia 1+; Macrocytosis 1+; Rouleaux 1+
--- NOTE | 2018-04-10 07:33 | Pharmacy Consult Notes ---
[facility] Pharmacy VTE Monitoring - Patient Demographics Admission date: 04/09/18 Report Date: 04/10/18 Time: 07:32 Allergies/Adverse Reactions: Patient Allergies clopidogrel [From PLAVIX] Allergy (Unknown, Verified 01/21/18 10:46) S-SKIN ERUPTIONS Height: 1.63 m Weight: 40.37 kg Patient Problems: Current Active Problems LLL pneumonia (Acute) Hypoxia (Acute) Leukocytosis (Acute) Thrombocytosis (Acute) - VTE Risk Labs: VTE Related Lab Results Hgb 14.7 g/dL (12.2-16.2) 04/09/18 20:25 Hct 47.7 % (37.0-47.0) H 04/09/18 20:25 Plt Count 456 K/mm3 (142-424) H 04/09/18 20:25 BUN 12 mg/dL (7-18) 04/09/18 20:25 Creatinine 0.84 mg/dL (0.55-1.02) 04/09/18 20:25 Estimated Creat Clear 36 mL/min (0-300) 04/09/18 20:25 VTE Score: 10 VTE Risk Level: Moderate Risk - Prophylaxis VTE Prophylaxis Ordered?: Yes Types of VTE Prophylaxis: TEDS Knee High Location of Applied Device: Bilateral Lower Extremeties - VTE Diagnosis Confirmed Treatment or plan recommended: Continue Current Treatment
--- NOTE | 2018-04-10 08:46 | History & Physical Report ---
*Admission Date: 04/09/18 <Regine Gilmore 04/10/18 09:00> *Chief complaint: Shortness of breath <Regine Gilmore 04/10/18 09:00> *History of present illness: Ms. Ramey is a 63-year-old white female with a history of COPD oxygen dependent , cardiovascular disease, tobacco use disorder, fibromyalgia, and environmental allergies who presented to [facility] emergency room after progressive shortness of breath and a fever last p.m. She states she is never well. She began to feel worse about a week ago. Her primary physician is in [place]. She saw him last after an January hospitalization for follow-up about a month ago. She was evaluated in the emergency room and diagnosed with pneumonia. She was admitted for further evaluation and treatment. This a.m. she does not feel any better. She states that she has been short of breath throughout the night and her legs hurt. She received 1 DuoNeb in the emergency room. She describes some left lower chest discomfort on inspiration. She denies nausea, vomiting, heart palpitations and leg edema. <Regine Gilmore 04/10/18 09:00> [facility] History Medical History: Reports:: Congestive Heart Failure, Coronary Artery Disease, Hypertension, Myocardial Infarction, Palpitations, Peripheral Vascular Disease Denies:: Cancer, Diabetes Mellitus Type 1, Diabetes Mellitus Type 2, MRSA, Seizures <Regine Gilmore 04/10/18 09:00> Other Medical History: Reports: Arthritis, Fibromyalgia, Hoarseness <Regine Gilmore 04/10/18 09:00> Laterality Cases: Right: Carpal Tunnel Release <Regine Gilmore 04/10/18 09:00 > Other Surgeries: Yes: Cardiac Catheterization, Colonoscopy, Hernia Repair, Hysterectomy-Total <Regine Gilmore 04/10/18 09:00> Amputation: No <Regine Gilmore 04/10/18 09:00> Fractures: No <Regine Gilmore 04/10/18 09:00> - *Social History Educational Level: Attended College <Regine Gilmore 04/10/18 09:00> Smoking Status: Current every day smoker <Regine Gilmore 04/10/18 09:00> Tobacco Type: cigarettes <Regine Gilmore 04/10/18 09:00> # Packs/Day (cigarettes): 1 <GilmoreRegine kellogg 04/10/18 09:00> Alcohol Intake: never <Regine Gilmore 04/10/18 09:00> Alcohol Intake Frequency:: 0-2 drinks per day <Regine Gilmore 04/10/18 09:00> Occupational Status: disabled <Regine Gilmore 04/10/18 09:00> Housing: apartment <Regine Gilmore 04/10/18 09:00> Household Members: friend(s) <Regine Gilmore 04/10/18 09:00> - Psychiatric History Expresses thoughts of harming self/others: None <Regine Gilmore 04/10/18 09: 00> Suicide Plan Description: No Plan <Regine Gilmore 04/10/18 09:00> *Family Hx:: Adopted, Cancer, Coronary Artery Disease, Heart Attack, Hyperlipidemia, Hypertension <Regine Gilmore 04/10/18 09:00> Review of Systems - Constitutional Reports fever(s), Reports headache(s), Denies body ache(s) <Regine Gilmore 09:00> - ENT Denies ear pain, Denies sore throat <Regine Gilmore 04/10/18 09:00> - *Cardiovascular Reports shortness of breath with activity <Regine Gilmore 04/10/18 09:00> - *Respiratory Reports chest congestion, Reports cough, Reports shortness of breath, Reports wheezing, Denies coughing up blood <Regine Gilmore 04/10/18 09:00> - *Gastrointestinal Denies change in stools, Denies constipation, Denies incontinent of stools, Denies black, tarry stools, Denies nausea, Denies vomiting <Regine Gilmore 09:00> - *Genitourinary Denies painful urination, Denies blood in urine, Denies urinary incontinence < Regine Gilmore 04/10/18 09:00> - *Musculoskeletal Reports abnormal walking (Walks with a walker), Reports muscle weakness < Regine Gilmore 04/10/18 09:00> - *Neurologic Denies abnormal speech <Regine Gilmore 04/10/18 09:00> Meds Home Medications Medication Instructions Recorded Confirmed Type Albuterol Sulfate [Albuterol HFA 1 - 2 puffs IH Q4-6H PRN 01/21/18 04/09/18 History Inhaler] Aspirin [Aspir 81] 81 mg PO DAILY 01/21/18 04/09/18 History Ipratropium/Albuterol Sulfate 3 ml IH Q4-6H PRN 01/21/18 04/09/18 History [Duoneb 3mL neb] Polyethylene Glycol 3350 [Miralax 17 gm PO DAILY 01/21/18 04/09/18 History 17gm Packet] Fluticasone Propionate [Flovent 1 puff IH BID 04/09/18 04/10/18 History Diskus] Ropinirole HCl 1 mg PO HS 04/09/18 04/09/18 History Umeclidinium Brm/Vilanterol Tr 1 puff IH DAILY 04/09/18 04/10/18 History [Anoro Ellipta 62.5-25 Mcg INH] buPROPion HCl [Wellbutrin SR 150mg 150 mg PO DAILY 04/09/18 04/09/18 History Tablet] Benazepril HCl 5 mg PO DAILY 04/10/18 04/10/18 History Nitroglycerin 0.4 mg SL NEEDED PRN MDD 3 TABS 04/10/18 04/10/18 History <Graham Salazar - 04/10/18 11:41> Allergies Allergy/AdvReac Type Severity Reaction Status Date / Time clopidogrel [From PLAVIX] Allergy Unknown S-SKIN Verified 01/21/18 10:46 ERUPTIONS <Graham Salazar - 04/10/18 11:41> Exam Vital signs and Labs for Last 24 Hours: Temp Pulse Resp BP Pulse Ox 98.4 F 93 H 18 103/61 93 L 04/10/18 08:00 04/10/18 10:46 04/10/18 08:00 04/10/18 08:00 04/10/18 10:46 Laboratory Results - last 24 hr 04/09/18 20:25: Lactic Acid 2.8 H 04/09/18 20:25: WBC 16.3 H, RBC 5.02, Hgb 14.7, Hct 47.7 H, MCV 95.0, MCH 29.2, MCHC 30.8 L, RDW 14.5, Plt Count 456 H, MPV 8.4, Neut % (Auto) 84.0 H, Lymph % ( Auto) 11.4, [place] % (Auto) 3.6, Eos % (Auto) 0.7, Baso % (Auto) 0.3, Neut # (Auto ) 13.7 H, Lymph # (Auto) 1.9, [place] # (Auto) 0.6, Eos # (Auto) 0.1, Baso # (Auto ) 0.1, Total Counted 100, Neutrophils % (Manual) 80 H, Band Neutrophils % 8.0, Lymphocytes % (Manual) 11, Monocytes % (Manual) 1 L, Platelet Estimate Slight increase, Hypochromasia 1+, Macrocytosis 1+, Rouleaux 1+ 04/09/18 20:25: Sodium 138, Potassium 4.4, Chloride 99, Carbon Dioxide 31, Anion Gap 12.4, BUN 12, Creatinine 0.84, Estimated Creat Clear 36, Estimated GFR 69, Est GFR ( Amer) 83, Glucose 88, Calcium 9.6, Total Bilirubin 0.3 , AST 22, ALT 22, Alkaline Phosphatase 116, Troponin I < 0.02, Total Protein 8.8 H, Albumin 4.1, Globulin 4.7 H, Albumin/Globulin Ratio 0.9 L 04/09/18 20:25: B-Natriuretic Peptide 279 H 04/09/18 20:37: Specimen Source R/r, O2 % 3, ABG pH 7.44, ABG pCO2 42.8, ABG pO2 53.9 L, ABG HCO3 28.4 H, ABG Total CO2 29.7 H, ABG O2 Saturation 89 L, ABG Base Excess 4.2 H, Sam Test Y 04/10/18 00:45: Lactic Acid Fup @ 4Hr 2.7 H 04/10/18 02:45: Troponin I 0.02 04/10/18 02:45: Lactic Acid Fup @ 2Hr 3.8 H <Graham Salazar - 04/10/18 11:41> Temp Pulse Resp BP Pulse Ox 98.4 F 103 H 18 103/61 91 L 04/10/18 08:00 04/10/18 08:00 04/10/18 08:00 04/10/18 08:00 04/10/18 08:00 Laboratory Results - last 24 hr 04/09/18 20:25: Lactic Acid 2.8 H 04/09/18 20:25: WBC 16.3 H, RBC 5.02, Hgb 14.7, Hct 47.7 H, MCV 95.0, MCH 29.2, MCHC 30.8 L, RDW 14.5, Plt Count 456 H, MPV 8.4, Neut % (Auto) 84.0 H, Lymph % ( Auto) 11.4, [place] % (Auto) 3.6, Eos % (Auto) 0.7, Baso % (Auto) 0.3, Neut # (Auto ) 13.7 H, Lymph # (Auto) 1.9, [place] # (Auto) 0.6, Eos # (Auto) 0.1, Baso # (Auto ) 0.1, Total Counted 100, Neutrophils % (Manual) 80 H, Band Neutrophils % 8.0, Lymphocytes % (Manual) 11, Monocytes % (Manual) 1 L, Platelet Estimate Slight increase, Hypochromasia 1+, Macrocytosis 1+, Rouleaux 1+ 04/09/18 20:25: Sodium 138, Potassium 4.4, Chloride 99, Carbon Dioxide 31, Anion Gap 12.4, BUN 12, Creatinine 0.84, Estimated Creat Clear 36, Estimated GFR 69, Est GFR ( Amer) 83, Glucose 88, Calcium 9.6, Total Bilirubin 0.3 , AST 22, ALT 22, Alkaline Phosphatase 116, Troponin I < 0.02, Total Protein 8.8 H, Albumin 4.1, Globulin 4.7 H, Albumin/Globulin Ratio 0.9 L 04/09/18 20:25: B-Natriuretic Peptide 279 H 04/09/18 20:37: Specimen Source R/r, O2 % 3, ABG pH 7.44, ABG pCO2 42.8, ABG pO2 53.9 L, ABG HCO3 28.4 H, ABG Total CO2 29.7 H, ABG O2 Saturation 89 L, ABG Base Excess 4.2 H, Sam Test Y 04/10/18 00:45: Lactic Acid Fup @ 4Hr 2.7 H 04/10/18 02:45: Troponin I 0.02 04/10/18 02:45: Lactic Acid Fup @ 2Hr 3.8 H <Regine Gilmore - 04/10/18 09:00> I & O for Last 24 hours: Intake & Output 04/07/18 04/08/18 04/09/18 04/10/18 11:59 11:59 11:59 11:59 Intake Total 1860 / 1860 Output Total 1150 / 1150 Balance 710 / 710 Weight 89 lb <Graham Salazar - 04/10/18 11:41> Intake & Output 04/07/18 04/08/18 04/09/18 04/10/18 11:59 11:59 11:59 11:59 Intake Total 1860 / 1860 Output Total 1150 / 1150 Balance 710 / 710 Weight 89 lb <Regine Gilmore - 04/10/18 09:00> Microbiology Reports for the Last 24 Hours: Microbiology 04/09/18 23:08 Sputum - Expectorated Sputum Gram Stain - Final 04/09/18 23:08 Sputum - Expectorated Sputum Sputum Culture - Preliminary <Graham Salazar - 04/10/18 11:41> Microbiology 04/09/18 23:08 Sputum - Expectorated Sputum Gram Stain - Final 04/09/18 23:08 Sputum - Expectorated Sputum Sputum Culture - Preliminary <Regine Gilmore - 04/10/18 09:00> Radiology Reports for the Last 24 Hours: Chest x-ray 04/09/2018 IMPRESSION: COPD with chronic changes with suspected superimposed left lower lobe pneumonia <Regine Gilmore - 04/10/18 09:00> - Constitutional no acute distress, thin <Regine Gilmore - 04/10/18 09:00> - *Routine HEENT Exam Head: Present: normocephalic, atraumatic <Regine Gilmore - 04/10/18 09:00> Eye: Present: PERRL. Absent: conjunctival icterus, scleral injection <Regine Gilmore - 04/10/18 09:00> ENT: Present: mucous membranes moist, oropharynx clear, nares patent <Regine Gilmore - 04/10/18 09:00> - *Routine Neck Exam Present: supple. Absent: carotid bruit, thyromegaly <Regine Gilmore - 09:00> Comments: Plan <Regine Gilmore - 04/10/18 09:00> - *Routine Respiratory Exam Present: accessory muscle use, prolonged expiratory phase, wheezes (Bilaterally A&P), crackles (Bilaterally A&P) <Regine Gilmore - 04/10/18 09:00> - *Routine Cardiovascular Exam Present: RRR <Regine Gilmore 04/10/18 09:00> - *Routine Abdominal Exam Present: soft, normoactive bowel sounds. Absent: tenderness, guarding < Regine Gilmore 04/10/18 09:00> - *Routine Extremities Exam Present: full ROM. Absent: edema, calf tenderness <Regine Gilmore 04/10/18 09:00> - *Routine Neurological Exam Present: alert, oriented X3 <Regine Gilmore 04/10/18 09:00> H&P: Result - Labs Labs: Short CBC 04/09/18 Range/Units 20:25 WBC 16.3 H (4.8-10.8) K/mm3 Hgb 14.7 (12.2-16.2) g/dL Hct 47.7 H (37.0-47.0) % Plt Count 456 H (142-424) K/mm3 BMP 04/09/18 20:25 Sodium 138 Potassium 4.4 Chloride 99 Carbon Dioxide 31 BUN 12 Creatinine 0.84 Glucose 88 Calcium 9.6 Cardiac Enzymes 04/09/18 04/10/18 Range/Units 20:25 02:45 Troponin I < 0.02 0.02 (0.00-0.06) ng/ml Liver Function 04/09/18 Range/Units 20:25 Total Bilirubin 0.3 (0.2-1.0) mg/dL AST 22 (15-37) U/L ALT 22 (12-78) U/L Alkaline Phosphatase 116 (46-116) U/L Albumin 4.1 (3.4-5.0) gm/dL <Graham Salazar - 04/10/18 11:41> Short CBC 04/09/18 Range/Units 20:25 WBC 16.3 H (4.8-10.8) K/mm3 Hgb 14.7 (12.2-16.2) g/dL Hct 47.7 H (37.0-47.0) % Plt Count 456 H (142-424) K/mm3 BMP 04/09/18 20:25 Sodium 138 Potassium 4.4 Chloride 99 Carbon Dioxide 31 BUN 12 Creatinine 0.84 Glucose 88 Calcium 9.6 Cardiac Enzymes 04/09/18 04/10/18 Range/Units 20:25 02:45 Troponin I < 0.02 0.02 (0.00-0.06) ng/ml Liver Function 04/09/18 Range/Units 20:25 Total Bilirubin 0.3 (0.2-1.0) mg/dL AST 22 (15-37) U/L ALT 22 (12-78) U/L Alkaline Phosphatase 116 (46-116) U/L Albumin 4.1 (3.4-5.0) gm/dL <MandoRegine - 04/10/18 09:00> Assessment and Plan (1) CAD (coronary artery disease) Current visit: Yes Status: Acute Category: Medical Code(s): I25.10 - Atherosclerotic heart disease of [place] coronary artery without angina pectoris (2) Hypoxia Current visit: Yes Status: Acute Category: Medical Code(s): R09.02 - Hypoxemia (3) LLL pneumonia Current visit: Yes Status: Acute Qualifiers: Pneumonia type: due to unspecified organism Qualified Code(s): J18.1 - Lobar pneumonia, unspecified organism Category: Medical Code(s): J18.1 - Lobar pneumonia, unspecified organism (4) COPD (chronic obstructive pulmonary disease) Current visit: No Status: Acute Category: Medical Code(s): J44.9 - Chronic obstructive pulmonary disease, unspecified (5) COPD with exacerbation Current visit: No Status: Acute Category: Medical Code(s): J44.1 - Chronic obstructive pulmonary disease with (acute) exacerbation (6) Cigarette smoker Current visit: No Status: Acute Category: Social Hx Code(s): F17.210 - Nicotine dependence, cigarettes, uncomplicated <Graham Salazar - 04/10/18 11:41> (1) CAD (coronary artery disease) Current visit: Yes Status: Acute Category: Medical Code(s): I25.10 - Atherosclerotic heart disease of [place] coronary artery without angina pectoris (2) Hypoxia Current visit: Yes Status: Acute Category: Medical Code(s): R09.02 - Hypoxemia (3) LLL pneumonia Current visit: Yes Status: Acute Qualifiers: Pneumonia type: due to unspecified organism Qualified Code(s): J18.1 - Lobar pneumonia, unspecified organism Category: Medical Code(s): J18.1 - Lobar pneumonia, unspecified organism (4) COPD (chronic obstructive pulmonary disease) Current visit: No Status: Acute Category: Medical Code(s): J44.9 - Chronic obstructive pulmonary disease, unspecified (5) COPD with exacerbation Current visit: No Status: Acute Category: Medical Code(s): J44.1 - Chronic obstructive pulmonary disease with (acute) exacerbation (6) Cigarette smoker Current visit: No Status: Acute Category: Social Hx Code(s): F17.210 - Nicotine dependence, cigarettes, uncomplicated <Regine Gilmore - 04/10/18 08:43> - Assessment and plan all Dx Assessment and Plan for all problems:: Saw patient, agree with above note. <Graham Salazar - 04/10/18 11:41> Start scheduled Solu-Medrol and duo nebs. We will continue with IV antibiotics <Regine Gilmore - 04/10/18 09:00>
[2018-04-11 06:28] LABS: Basophils % 0.1 % (0.1-2.0); Eosinophils # 0.1 K/mm3 (0.0-0.4); Eosinophils % 0.4 % (0.1-12.0); Hematocrit 43.6 % (37.0-47.0); Hemoglobin 13.4 g/dL (12.2-16.2); Lymphocytes # 0.8 K/mm3 (0.7-4.5); Lymphocytes % 5.2 K/mm3 (10-50); Mean Corpuscular HGB Conc 30.8 g/dL (31.8-35.4); Mean Corpuscular Hemoglobin 29.6 pg (27.0-31.2); Mean Corpuscular Volume 96.2 fl (81-99); Mean Platelet Volume 9.3 fl (7.4-10.4); Monocytes # 0.4 K/mm3 (0.1-1.0); Monocytes % 2.4 % (1.7-9.3); Neutrophils # 14.3 K/mm3 (1.8-7.8); Neutrophils % 91.8 % (37.0-80.0); Platelet Count 362 K/mm3 (142-424); Red Blood Count 4.53 M/mm3 (4.20-5.40); Red Cell Distribution Width 14.6 % (11.5-17.5); White Blood Count 15.6 K/mm3 (4.8-10.8)
[2018-04-11 06:40] LABS: Anion Gap 11.1 mEq/L (5-15); Calcium 9.3 mg/dL (8.5-10.1); Potassium 4.1 mmoL/L (3.5-5.1)
--- NOTE | 2018-04-11 07:59 | Progress Note ---
<Regine Gilmore - Last Filed: 04/11/18 07:56> Internal Medicine - PN: Subj *Date: 04/11/18 *Time: 07:56 Interval history: Patient feeling better this morning. He states the cough is less and is less productive. She said some left shoulder pain which she has been experiencing for weeks. The heat does help. She slept more last night. She is eating and drinking without problems. She has been up to the bedside commode. Exam Vital signs and Labs for Last 24 Hours: Temp Pulse Resp BP Pulse Ox 98.4 F 100 H 24 115/63 95 04/11/18 07:26 04/11/18 07:26 04/11/18 07:26 04/11/18 07:26 04/11/18 07:26 Laboratory Results - last 24 hr 04/11/18 05:36: WBC 15.6 H, RBC 4.53, Hgb 13.4, Hct 43.6, MCV 96.2, MCH 29.6, MCHC 30.8 L, RDW 14.6, Plt Count 362, MPV 9.3, Neut % (Auto) 91.8 H, Lymph % ( Auto) 5.2 L, [place] % (Auto) 2.4, Eos % (Auto) 0.4, Baso % (Auto) 0.1, Neut # ( Auto) 14.3 H, Lymph # (Auto) 0.8, [place] # (Auto) 0.4, Eos # (Auto) 0.1, Baso # ( Auto) 0.0 04/11/18 05:36: Sodium 137, Potassium 4.1, Chloride 99, Carbon Dioxide 31, Anion Gap 11.1, BUN 14, Creatinine 0.70, Estimated Creat Clear 37, Estimated GFR 85, Est GFR ( Amer) 103 D, Glucose 116 H, Calcium 9.3 I & O for Last 24 hours: Intake & Output 04/08/18 04/09/18 04/10/18 04/11/18 11:59 11:59 11:59 11:59 Intake Total 1860 / 1860 2350 / 2350 Output Total 1150 / 1150 1600 / 1600 Balance 710 / 710 750 / 750 Weight 89 lb 89 lb 0.01 oz Microbiology Reports for the Last 24 Hours: Microbiology 04/09/18 23:08 Sputum - Expectorated Sputum Gram Stain - Final 04/09/18 23:08 Sputum - Expectorated Sputum Sputum Culture - Preliminary - Constitutional no acute distress, thin - *Routine Respiratory Exam Present: wheezes (Scattered and is less today) - *Routine Cardiovascular Exam Present: RRR Comments: White blood cell his decreased slightly. Electrolytes are normal. Sputum shows no growth - *Routine Abdominal Exam Present: soft, normoactive bowel sounds. Absent: tenderness - *Routine Extremities Exam Present: full ROM. Absent: edema, calf tenderness - *Routine Neurological Exam Present: alert, oriented X3 Assessment and Plan (1) CAD (coronary artery disease) Current visit: Yes Status: Acute Category: Medical Code(s): I25.10 - Atherosclerotic heart disease of [place] coronary artery without angina pectoris (2) Hypoxia Current visit: Yes Status: Acute Category: Medical Code(s): R09.02 - Hypoxemia (3) LLL pneumonia Current visit: Yes Status: Acute Qualifiers: Pneumonia type: due to unspecified organism Qualified Code(s): J18.1 - Lobar pneumonia, unspecified organism Category: Medical Code(s): J18.1 - Lobar pneumonia, unspecified organism (4) COPD (chronic obstructive pulmonary disease) Current visit: No Status: Acute Category: Medical Code(s): J44.9 - Chronic obstructive pulmonary disease, unspecified (5) COPD with exacerbation Current visit: No Status: Acute Category: Medical Code(s): J44.1 - Chronic obstructive pulmonary disease with (acute) exacerbation (6) Cigarette smoker Current visit: No Status: Acute Category: Social Hx Code(s): F17.210 - Nicotine dependence, cigarettes, uncomplicated - Assessment and plan all Dx Assessment and Plan for all problems:: We will continue with duo nebs, steroids, and antibiotics. <Graham Salazar - Last Filed: 04/11/18 08:44> Internal Medicine - PN: Subj *Date: 04/11/18 *Time: 08:43 Exam Vital signs and Labs for Last 24 Hours: Temp Pulse Resp BP Pulse Ox 98.4 F 100 H 24 115/63 95 04/11/18 07:26 04/11/18 07:26 04/11/18 07:26 04/11/18 07:26 04/11/18 07:26 Laboratory Results - last 24 hr 04/11/18 05:36: WBC 15.6 H, RBC 4.53, Hgb 13.4, Hct 43.6, MCV 96.2, MCH 29.6, MCHC 30.8 L, RDW 14.6, Plt Count 362, MPV 9.3, Neut % (Auto) 91.8 H, Lymph % ( Auto) 5.2 L, [place] % (Auto) 2.4, Eos % (Auto) 0.4, Baso % (Auto) 0.1, Neut # ( Auto) 14.3 H, Lymph # (Auto) 0.8, [place] # (Auto) 0.4, Eos # (Auto) 0.1, Baso # ( Auto) 0.0 04/11/18 05:36: Sodium 137, Potassium 4.1, Chloride 99, Carbon Dioxide 31, Anion Gap 11.1, BUN 14, Creatinine 0.70, Estimated Creat Clear 37, Estimated GFR 85, Est GFR ( Amer) 103 D, Glucose 116 H, Calcium 9.3 I & O for Last 24 hours: Intake & Output 04/08/18 04/09/18 04/10/18 04/11/18 11:59 11:59 11:59 11:59 Intake Total 1860 / 1860 2350 / 2350 Output Total 1150 / 1150 1600 / 1600 Balance 710 / 710 750 / 750 Weight 89 lb 89 lb 0.01 oz Microbiology Reports for the Last 24 Hours: Microbiology 04/09/18 23:08 Sputum - Expectorated Sputum Gram Stain - Final 04/09/18 23:08 Sputum - Expectorated Sputum Sputum Culture - Preliminary Gram Negative Rods Assessment and Plan (1) CAD (coronary artery disease) Current visit: Yes Status: Acute Category: Medical Code(s): I25.10 - Atherosclerotic heart disease of [place] coronary artery without angina pectoris (2) Hypoxia Current visit: Yes Status: Acute Category: Medical Code(s): R09.02 - Hypoxemia (3) LLL pneumonia Current visit: Yes Status: Acute Qualifiers: Pneumonia type: due to unspecified organism Qualified Code(s): J18.1 - Lobar pneumonia, unspecified organism Category: Medical Code(s): J18.1 - Lobar pneumonia, unspecified organism (4) COPD (chronic obstructive pulmonary disease) Current visit: No Status: Acute Category: Medical Code(s): J44.9 - Chronic obstructive pulmonary disease, unspecified (5) COPD with exacerbation Current visit: No Status: Acute Category: Medical Code(s): J44.1 - Chronic obstructive pulmonary disease with (acute) exacerbation (6) Cigarette smoker Current visit: No Status: Acute Category: Social Hx Code(s): F17.210 - Nicotine dependence, cigarettes, uncomplicated - Assessment and plan all Dx Assessment and Plan for all problems:: Saw patient, agree with above note.
[2018-04-11 08:51] LABS: Lymphocytes % 6 % (10-50); Monocytes % 5 % (2-9); Neutrophils % 87 % (42-76); Total Cells Counted 100
[2018-04-11 08:54] LABS: Hypochromasia 1+
[2018-04-11 08:55] LABS: Rouleaux 1+
--- NOTE | 2018-04-12 07:42 | Progress Note ---
Internal Medicine - PN: Subj *Date: 04/12/18 *Time: 07:39 Interval history: Patient with no new complaints today. Nurse states patient needs a prn cough medication. Exam Vital signs and Labs for Last 24 Hours: Temp Pulse Resp BP Pulse Ox 98.4 F 115 H 20 147/79 95 04/12/18 07:38 04/12/18 07:38 04/12/18 07:38 04/12/18 07:38 04/12/18 07:38 Laboratory Results - last 24 hr 04/11/18 05:36: Total Counted 100, Neutrophils % (Manual) 87 H, Band Neutrophils % 2.0, Lymphocytes % (Manual) 6 L, Monocytes % (Manual) 5, Platelet Estimate Normal, Hypochromasia 1+, Rouleaux 1+ Vital Signs - 24 hr 04/11/18 08:00 04/11/18 10:32 04/11/18 11:29 Temperature 98.0 F Pulse Rate 99 H Pulse Rate [Right Brachial] 101 H Respiratory Rate 24 Blood Pressure [Left Arm] Blood Pressure [Right Arm] 127/58 02 Sat by Pulse Oximetry 95 90 L 96 04/11/18 13:33 04/11/18 16:00 04/11/18 19:45 Temperature 99.0 F Pulse Rate 124 H 126 H Pulse Rate [Right Brachial] 53 L Respiratory Rate 24 Blood Pressure [Left Arm] Blood Pressure [Right Arm] 127/70 02 Sat by Pulse Oximetry 92 L 97 92 L 04/11/18 19:55 04/11/18 20:00 04/12/18 00:00 Temperature 98.8 F 98.4 F Pulse Rate Pulse Rate [Right Brachial] 113 H 113 H 107 H Respiratory Rate 22 20 Blood Pressure [Left Arm] 149/80 118/66 Blood Pressure [Right Arm] 02 Sat by Pulse Oximetry 94 L 94 L 98 04/12/18 04:00 04/12/18 06:19 04/12/18 07:38 Temperature 98.1 F 98.4 F Pulse Rate 100 H Pulse Rate [Right Brachial] 99 H 115 H Respiratory Rate 18 20 Blood Pressure [Left Arm] 147/79 Blood Pressure [Right Arm] 113/62 02 Sat by Pulse Oximetry 98 95 95 I & O for Last 24 hours: Intake & Output 04/09/18 04/10/18 04/11/18 04/12/18 11:59 11:59 11:59 11:59 Intake Total 1860 / 1860 2350 / 2350 1050 / 1050 Output Total 1150 / 1150 1600 / 1600 1200 / 1200 Balance 710 / 710 750 / 750 -150 / -150 Weight 89 lb 89 lb 0.01 oz 90 lb 9 oz Microbiology Reports for the Last 24 Hours: Microbiology 04/09/18 23:08 Sputum - Expectorated Sputum Gram Stain - Final 04/09/18 23:08 Sputum - Expectorated Sputum Sputum Culture - Preliminary Klebsiella pneumoniae 04/09/18 20:28 Blood Blood Culture - Preliminary NO GROWTH AFTER 48 HOURS 04/09/18 20:28 Blood Blood Culture - Preliminary NO GROWTH AFTER 48 HOURS - Constitutional no acute distress - *Routine HEENT Exam ENT: Present: mucous membranes moist - *Routine Respiratory Exam Present: wheezes (bilateral expiratory, diminished breath sounds in the bases) - *Routine Cardiovascular Exam Present: RRR - *Routine Extremities Exam Absent: cyanosis, clubbing, edema Assessment and Plan (1) Klebsiella pneumoniae pneumonia Current visit: Yes Status: Acute Category: Medical Code(s): J15.0 - Pneumonia due to Klebsiella pneumoniae (2) Hypoxia Current visit: Yes Status: Acute Category: Medical Code(s): R09.02 - Hypoxemia (3) LLL pneumonia Current visit: Yes Status: Acute Qualifiers: Pneumonia type: due to unspecified organism Qualified Code(s): J18.1 - Lobar pneumonia, unspecified organism Category: Medical Code(s): J18.1 - Lobar pneumonia, unspecified organism (4) CAD (coronary artery disease) Current visit: Yes Status: Acute Category: Medical Code(s): I25.10 - Atherosclerotic heart disease of [place] coronary artery without angina pectoris (5) COPD (chronic obstructive pulmonary disease) Current visit: No Status: Acute Category: Medical Code(s): J44.9 - Chronic obstructive pulmonary disease, unspecified (6) COPD with exacerbation Current visit: No Status: Acute Category: Medical Code(s): J44.1 - Chronic obstructive pulmonary disease with (acute) exacerbation (7) Cigarette smoker Current visit: No Status: Acute Category: Social Hx Code(s): F17.210 - Nicotine dependence, cigarettes, uncomplicated - Assessment and plan all Dx Assessment and Plan for all problems:: Patient slowly improving. Will change to PO steroids today, check CXR today.
[2018-04-13 05:59] LABS: Basophils % 0.1 % (0.1-2.0); Eosinophils % 0.1 % (0.1-12.0); Hematocrit 38.8 % (37.0-47.0); Hemoglobin 11.9 g/dL (12.2-16.2); Lymphocytes # 1.3 K/mm3 (0.7-4.5); Lymphocytes % 11.4 K/mm3 (10-50); Mean Corpuscular HGB Conc 30.8 g/dL (31.8-35.4); Mean Corpuscular Hemoglobin 29.1 pg (27.0-31.2); Mean Corpuscular Volume 94.7 fl (81-99); Mean Platelet Volume 7.5 fl (7.4-10.4); Monocytes # 0.6 K/mm3 (0.1-1.0); Monocytes % 4.8 % (1.7-9.3); Neutrophils # 9.8 K/mm3 (1.8-7.8); Neutrophils % 83.6 % (37.0-80.0); Platelet Count 406 K/mm3 (142-424); Red Blood Count 4.09 M/mm3 (4.20-5.40); Red Cell Distribution Width 14.8 % (11.5-17.5); White Blood Count 11.7 K/mm3 (4.8-10.8)
[2018-04-13 06:07] LABS: Anion Gap 7.3 mEq/L (5-15); Calcium 8.7 mg/dL (8.5-10.1); Potassium 4.3 mmoL/L (3.5-5.1)
[2018-04-13 07:26] VITALS: BP 131/78
--- NOTE | 2018-04-13 07:41 | Progress Note ---
Internal Medicine - PN: Subj *Date: 04/13/18 *Time: 07:40 Exam Vital signs and Labs for Last 24 Hours: Temp Pulse Resp BP Pulse Ox 98.0 F 100 H 20 131/78 96 04/13/18 07:25 04/13/18 07:25 04/13/18 07:25 04/13/18 07:25 04/13/18 07:25 Laboratory Results - last 24 hr 04/13/18 05:20: WBC 11.7 H, RBC 4.09 L, Hgb 11.9 L, Hct 38.8, MCV 94.7, MCH 29.1 , MCHC 30.8 L, RDW 14.8, Plt Count 406, MPV 7.5, Neut % (Auto) 83.6 H, Lymph % ( Auto) 11.4, [place] % (Auto) 4.8, Eos % (Auto) 0.1, Baso % (Auto) 0.1, Neut # (Auto ) 9.8 H, Lymph # (Auto) 1.3, [place] # (Auto) 0.6, Eos # (Auto) 0.0, Baso # (Auto) 0.0 04/13/18 05:20: Sodium 136, Potassium 4.3, Chloride 101, Carbon Dioxide 32, Anion Gap 7.3, BUN 21 H D, Creatinine 0.66, Estimated Creat Clear 36, Estimated GFR 91, Est GFR ( Amer) 110, Glucose 119 H, Calcium 8.7 I & O for Last 24 hours: Intake & Output 04/10/18 04/11/18 04/12/18 04/13/18 23:59 23:59 23:59 23:59 Intake Total 1270 / 1270 2490 / 2490 2530 / 2530 Output Total 1150 / 1150 2800 / 2800 1200 / 1200 Balance 120 / 120 -310 / -310 1330 / 1330 Weight 40.37 kg 41.078 kg 39.576 kg Microbiology Reports for the Last 24 Hours: Microbiology 04/09/18 23:08 Sputum - Expectorated Sputum Gram Stain - Final 04/09/18 23:08 Sputum - Expectorated Sputum Sputum Culture - Preliminary Klebsiella pneumoniae Gram Positive Cocci Assessment and Plan (1) Klebsiella pneumoniae pneumonia Current visit: Yes Status: Acute Category: Medical Code(s): J15.0 - Pneumonia due to Klebsiella pneumoniae (2) Hypoxia Current visit: Yes Status: Acute Category: Medical Code(s): R09.02 - Hypoxemia (3) LLL pneumonia Current visit: Yes Status: Acute Qualifiers: Pneumonia type: due to unspecified organism Qualified Code(s): J18.1 - Lobar pneumonia, unspecified organism Category: Medical Code(s): J18.1 - Lobar pneumonia, unspecified organism (4) CAD (coronary artery disease) Current visit: Yes Status: Acute Category: Medical Code(s): I25.10 - Atherosclerotic heart disease of [place] coronary artery without angina pectoris (5) COPD (chronic obstructive pulmonary disease) Current visit: No Status: Acute Category: Medical Code(s): J44.9 - Chronic obstructive pulmonary disease, unspecified (6) COPD with exacerbation Current visit: No Status: Acute Category: Medical Code(s): J44.1 - Chronic obstructive pulmonary disease with (acute) exacerbation (7) Cigarette smoker Current visit: No Status: Acute Category: Social Hx Code(s): F17.210 - Nicotine dependence, cigarettes, uncomplicated The patient's infection will respond to the chosen ABx?: Yes Is the patient receiving the right drug, dose, and route?: Yes Could a more targeted ABx be ordered?: No
--- NOTE | 2018-04-13 08:39 | Progress Note ---
<Essence Bartholomew - Last Filed: 04/13/18 08:35> Internal Medicine - PN: Subj *Date: 04/13/18 *Time: 08:35 Interval history: Patient states she is feeling much better today. She states she had a really good night and slept well and woke up feeling much better. She denies any pain. She states her abdominal swelling has improved. Her shortness of breath is at baseline. Exam Vital signs and Labs for Last 24 Hours: Temp Pulse Resp BP Pulse Ox 98.0 F 100 H 20 131/78 96 04/13/18 07:25 04/13/18 07:25 04/13/18 07:25 04/13/18 07:25 04/13/18 07:25 Laboratory Results - last 24 hr 04/13/18 05:20: WBC 11.7 H, RBC 4.09 L, Hgb 11.9 L, Hct 38.8, MCV 94.7, MCH 29.1 , MCHC 30.8 L, RDW 14.8, Plt Count 406, MPV 7.5, Neut % (Auto) 83.6 H, Lymph % ( Auto) 11.4, [place] % (Auto) 4.8, Eos % (Auto) 0.1, Baso % (Auto) 0.1, Neut # (Auto ) 9.8 H, Lymph # (Auto) 1.3, [place] # (Auto) 0.6, Eos # (Auto) 0.0, Baso # (Auto) 0.0 04/13/18 05:20: Sodium 136, Potassium 4.3, Chloride 101, Carbon Dioxide 32, Anion Gap 7.3, BUN 21 H D, Creatinine 0.66, Estimated Creat Clear 36, Estimated GFR 91, Est GFR ( Amer) 110, Glucose 119 H, Calcium 8.7 I & O for Last 24 hours: Intake & Output 04/10/18 04/11/18 04/12/18 04/13/18 11:59 11:59 11:59 11:59 Intake Total 1860 / 1860 2350 / 2350 1050 / 1050 2530 / 2530 Output Total 1150 / 1150 1600 / 1600 1200 / 1200 1200 / 1200 Balance 710 / 710 750 / 750 -150 / -150 1330 / 1330 Weight 89 lb 89 lb 0.01 oz 90 lb 9 oz 87 lb 4 oz Microbiology Reports for the Last 24 Hours: Microbiology 04/09/18 23:08 Sputum - Expectorated Sputum Gram Stain - Final 04/09/18 23:08 Sputum - Expectorated Sputum Sputum Culture - Preliminary Klebsiella pneumoniae Gram Positive Cocci Radiology Reports for the Last 24 Hours: CXR - COPD with chronic changes. Improved left lower lobe infiltrate. Hiatal hernia - Constitutional no acute distress - *Routine Respiratory Exam Present: wheezes (improved), diminished air movement - *Routine Cardiovascular Exam Present: RRR - *Routine Abdominal Exam Present: soft, normoactive bowel sounds. Absent: tenderness - *Routine Extremities Exam Absent: edema Assessment and Plan (1) Klebsiella pneumoniae pneumonia Status: Acute Category: Medical Code(s): J15.0 - Pneumonia due to Klebsiella pneumoniae (2) Hypoxia Status: Acute Category: Medical Code(s): R09.02 - Hypoxemia (3) LLL pneumonia Status: Acute Qualifiers: Pneumonia type: due to unspecified organism Qualified Code(s): J18.1 - Lobar pneumonia, unspecified organism Category: Medical Code(s): J18.1 - Lobar pneumonia, unspecified organism (4) CAD (coronary artery disease) Status: Acute Category: Medical Code(s): I25.10 - Atherosclerotic heart disease of [place] coronary artery without angina pectoris (5) COPD (chronic obstructive pulmonary disease) Status: Acute Category: Medical Code(s): J44.9 - Chronic obstructive pulmonary disease, unspecified (6) COPD with exacerbation Status: Acute Category: Medical Code(s): J44.1 - Chronic obstructive pulmonary disease with (acute) exacerbation (7) Cigarette smoker Status: Acute Category: Social Hx Code(s): F17.210 - Nicotine dependence, cigarettes, uncomplicated - Assessment and plan all Dx Assessment and Plan for all problems:: Patient is improving. Possible discharge home soon. Will discuss with Dr. Calvin. <Parth Calvin - Last Filed: 04/13/18 15:04> Internal Medicine - PN: Subj *Date: 04/13/18 *Time: 15:01 Exam Vital signs and Labs for Last 24 Hours: Temp Pulse Resp BP Pulse Ox 98.0 F 73 20 131/78 96 04/13/18 07:25 04/13/18 09:14 04/13/18 08:00 04/13/18 07:25 04/13/18 08:00 Laboratory Results - last 24 hr 04/13/18 05:20: WBC 11.7 H, RBC 4.09 L, Hgb 11.9 L, Hct 38.8, MCV 94.7, MCH 29.1 , MCHC 30.8 L, RDW 14.8, Plt Count 406, MPV 7.5, Neut % (Auto) 83.6 H, Lymph % ( Auto) 11.4, [place] % (Auto) 4.8, Eos % (Auto) 0.1, Baso % (Auto) 0.1, Neut # (Auto ) 9.8 H, Lymph # (Auto) 1.3, [place] # (Auto) 0.6, Eos # (Auto) 0.0, Baso # (Auto) 0.0 04/13/18 05:20: Sodium 136, Potassium 4.3, Chloride 101, Carbon Dioxide 32, Anion Gap 7.3, BUN 21 H D, Creatinine 0.66, Estimated Creat Clear 36, Estimated GFR 91, Est GFR ( Amer) 110, Glucose 119 H, Calcium 8.7 I & O for Last 24 hours: Intake & Output 04/11/18 04/12/18 04/13/18 04/14/18 11:59 11:59 11:59 11:59 Intake Total 2350 / 2350 1050 / 1050 2530 / 2530 Output Total 1600 / 1600 1200 / 1200 1200 / 1200 Balance 750 / 750 -150 / -150 1330 / 1330 Weight 89 lb 0.01 oz 90 lb 9 oz 87 lb 4 oz Assessment and Plan (1) Klebsiella pneumoniae pneumonia Status: Acute Category: Medical Code(s): J15.0 - Pneumonia due to Klebsiella pneumoniae (2) Hypoxia Status: Acute Category: Medical Code(s): R09.02 - Hypoxemia (3) LLL pneumonia Status: Acute Qualifiers: Pneumonia type: due to unspecified organism Qualified Code(s): J18.1 - Lobar pneumonia, unspecified organism Category: Medical Code(s): J18.1 - Lobar pneumonia, unspecified organism (4) CAD (coronary artery disease) Status: Acute Category: Medical Code(s): I25.10 - Atherosclerotic heart disease of [place] coronary artery without angina pectoris (5) COPD (chronic obstructive pulmonary disease) Status: Acute Category: Medical Code(s): J44.9 - Chronic obstructive pulmonary disease, unspecified (6) COPD with exacerbation Status: Acute Category: Medical Code(s): J44.1 - Chronic obstructive pulmonary disease with (acute) exacerbation (7) Cigarette smoker Status: Acute Category: Social Hx Code(s): F17.210 - Nicotine dependence, cigarettes, uncomplicated - Assessment and plan all Dx Assessment and Plan for all problems:: Patient seen and examined this AM. As noted, she is feeling much better. Her CXR shows resolution of her infiltrate and WBC is trending toward normal. SHe was switched to po steroids yesterday. Causative agent of her pneumonia is identified as Klebsiella. She is stable for discharge and will f/u with her PCP next week
--- NOTE | 2018-04-14 21:58 | Discharge Summary ---
General - General Admission date:: 04/09/18 <Parth Calvin - 04/18/18 16:36> 04/09/18 <Essence Bartholomew - 04/14/18 21:58> Discharge date: 04/13/18 <Essence Bartholomew - 04/14/18 21:58> HPI HPI: Ms. Ramey is a 63-year-old white female with a history of COPD oxygen dependent , cardiovascular disease, tobacco use disorder, fibromyalgia, and environmental allergies who presented to [facility] emergency room after progressive shortness of breath and a fever last p.m. She states she is never well. She began to feel worse about a week ago. Her primary physician is in [place]. She saw him last after an January hospitalization for follow-up about a month ago. She was evaluated in the emergency room and diagnosed with pneumonia. She was admitted for further evaluation and treatment. This a.m. she does not feel any better. She states that she has been short of breath throughout the night and her legs hurt. She received 1 DuoNeb in the emergency room. She describes some left lower chest discomfort on inspiration. She denies nausea, vomiting, heart palpitations and leg edema. <Essence Bartholomew - 04/14/18 21:58> Hospital Course Hospital Course: Her CXR showed COPD with a LLL pneumonia. She was started on scheduled Solu-Medrol and duo nebs as well as IV antibiotics. Her WBC improved and her electrolytes normalized. Her steroids were switched to PO and she had a repeat CXR showing improving pneumonia. Her sputum was positive for both klebsiella pneumoniae and strep pneumoniae. Her symptoms improved and she was stable to be discharged home on abx with a f/u with her PCP. <Essence Bartholomew - 04/14/18 21:58> Objective Vital signs: Temp Pulse Resp BP Pulse Ox 98.0 F 73 20 131/78 96 04/13/18 07:25 04/13/18 09:14 04/13/18 08:00 04/13/18 07:25 04/13/18 08:00 <MarixaParth - 04/18/18 16:36> Temp Pulse Resp BP Pulse Ox 98.0 F 73 20 131/78 96 04/13/18 07:25 04/13/18 09:14 04/13/18 08:00 04/13/18 07:25 04/13/18 08:00 <Essence Bartholomew - 04/14/18 21:58> Narrative: - Constitutional no acute distress, thin - *Routine HEENT Exam Head: Present: normocephalic, atraumatic Eye: Present: PERRL. Absent: conjunctival icterus, scleral injection ENT: Present: mucous membranes moist, oropharynx clear, nares patent - *Routine Neck Exam Present: supple. Absent: carotid bruit, thyromegaly - *Routine Respiratory Exam Present: accessory muscle use, prolonged expiratory phase, wheezes (Bilaterally A&P), crackles (Bilaterally A&P) - *Routine Cardiovascular Exam Present: RRR - *Routine Abdominal Exam Present: soft, normoactive bowel sounds. Absent: tenderness, guarding - *Routine Extremities Exam Present: full ROM. Absent: edema, calf tenderness - *Routine Neurological Exam Present: alert, oriented X3 <Essence Bartholomew 04/14/18 21:58> DS: Diagnosis - Discharge Diagnosis (1) Klebsiella pneumoniae pneumonia Status: Acute (2) Hypoxia Status: Acute (3) LLL pneumonia Status: Acute (4) CAD (coronary artery disease) Status: Acute (5) COPD (chronic obstructive pulmonary disease) Status: Acute (6) COPD with exacerbation Status: Acute (7) Cigarette smoker Status: Acute (8) Streptococcus pneumoniae pneumonia Status: Acute <Essence Bartholomew 04/14/18 21:51> (1) Klebsiella pneumoniae pneumonia Status: Acute (2) Hypoxia Status: Acute (3) LLL pneumonia Status: Acute (4) CAD (coronary artery disease) Status: Acute (5) COPD (chronic obstructive pulmonary disease) Status: Acute (6) COPD with exacerbation Status: Acute (7) Cigarette smoker Status: Acute (8) Streptococcus pneumoniae pneumonia Status: Acute <Parth Calvin - 04/18/18 16:36> Discharge Plan - Patient Discharge Instructions ACTIVITY: Continue current activity <Essence Bartholomew - 04/14/18 21:58> DIET: continue same diet <Essence Bartholomew 04/14/18 21:58> Patient Instructions: DI for Chronic Obstructive Pulmonary Disease, DI for Pneumonia -- Adult, Low-Sodium Diet, How to Quit Smoking <Parth Calvin - 04/18/18 16:36> Forms: <Parth Calvin - 04/18/18 16:36> - Follow up Plan Follow up with: Sahara Edwards [Referring] - 1 week <Parth Calvin Nilson - 04/18/18 16:36> Disposition: Home, Self-Care <Parth Calvin - 04/18/18 16:36> Home Medications: Home Medications Medication Instructions Recorded Confirmed Type Albuterol Sulfate [Albuterol HFA 1 - 2 puffs IH Q4-6H PRN 01/21/18 04/09/18 History Inhaler] Aspirin [Aspir 81] 81 mg PO DAILY 01/21/18 04/09/18 History Ipratropium/Albuterol Sulfate 3 ml IH Q4-6H PRN 01/21/18 04/09/18 History [Duoneb 3mL neb] Polyethylene Glycol 3350 [Miralax 17 gm PO DAILY 01/21/18 04/09/18 History 17gm Packet] Fluticasone Propionate [Flovent 1 puff IH BID 04/09/18 04/10/18 History Diskus] Ropinirole HCl 1 mg PO HS 04/09/18 04/09/18 History Umeclidinium Brm/Vilanterol Tr 1 puff IH DAILY 04/09/18 04/10/18 History [Anoro Ellipta 62.5-25 Mcg INH] buPROPion HCl [Wellbutrin SR 150mg 150 mg PO DAILY 04/09/18 04/09/18 History Tablet] Benazepril HCl 5 mg PO DAILY 04/10/18 04/10/18 History Nitroglycerin 0.4 mg SL NEEDED PRN MDD 3 TABS 04/10/18 04/10/18 History <Parth Calvin Nilson - 04/18/18 16:36> Prescriptions/Medication Reconciliation: New predniSONE [Deltasone 10mg tablet] 10 mg PO DIRECTED #21 tab cefUROXime axetil [Ceftin 500mg Tab (GEQ)] 500 mg PO BID #14 tab Continue Polyethylene Glycol 3350 [Miralax 17gm Packet] 17 gm PO DAILY Aspirin [Aspir 81] 81 mg PO DAILY Umeclidinium Brm/Vilanterol Tr [Anoro Ellipta 62.5-25 Mcg INH] 1 puff IH DAILY Fluticasone Propionate [Flovent Diskus] 1 puff IH BID Ropinirole HCl 1 mg PO HS Nitroglycerin 0.4 mg SL NEEDED PRN MDD 3 TABS PRN Reason: Chest Pain Benazepril HCl 5 mg PO DAILY Ipratropium/Albuterol Sulfate [Duoneb 3mL neb] 3 ml IH Q4-6H PRN PRN Reason: Shortness Of Breath Albuterol Sulfate [Albuterol HFA Inhaler] 1 - 2 puffs IH Q4-6H PRN PRN Reason: Shortness Of Breath Or Wheezing buPROPion HCl [Wellbutrin SR 150mg Tablet] 150 mg PO DAILY <Parth Calvin - 04/18/18 16:36> - Additional Information Additional Information: Concur with discharge plan as outlined above. <Parth Calvin - 04/18/18 16:36>
== END 2018-04-13 11:29 | disposition home or self-care (01) ==
LOC: ER 20:05 → 2ND 22:27
PROVIDERS: ADMIT Family Medicine; ATTEND Family Medicine

== ENCOUNTER → 2018-05-26 11:20 | Outpatient (CLI) | payer MEDICARE, SELFPAY ==
--- NOTE | 2018-05-26 11:53 | XR_ITS ---
XR chest 2V HISTORY: ITS.REASON: PRODUCTIVE COUGH,PLEURODYNIA,RIB PAIN ORDERING PHYSICIAN: Sahara Edwards PATIENT AGE: 63 years COMPARISON: 04/22/2018 FINDINGS: Normal heart size. Emphysema/COPD with chronic changes are present suture line in the right lower lobe. Hyperinflation is noted. No evidence of pneumothorax. Chronic changes are present in the right lung base with pleural thickening. No acute bony anomalies. IMPRESSION: No change COPD/emphysema with chronic changes. No acute finding
--- NOTE | 2018-05-26 11:53 | XR_ITS ---
XR ribs RT 2V HISTORY: ITS.REASON: PLEURODYNIA,PRODUCTIVE COUGH,RT RIB PAIN ORDERING PHYSICIAN: Sahara Edwards PATIENT AGE: 63 years Comparison: None FINDINGS: A nondisplaced fracture involves the anterior aspect of the right eighth rib. The margins are poorly well-circumscribed suggestion of some minimal sclerosis of the margins suggesting a subacute appearance. Please correlate clinically. There is some minimal pleural reaction in the right midlung laterally. IMPRESSION: Nondisplaced right eighth rib fracture
== END ==
PROVIDERS: PCP General Practice; Visit Provider General Practice
DX: R05 Cough (principal)
CPT/HCPCS: 71046; 71100

== ENCOUNTER 2018-06-01 19:04 | Inpatient (IN) ==
[2018-06-01 19:35] LABS: Basophils % 0.1 % (0.1-2.0); Hematocrit 43.2 % (37.0-47.0); Hemoglobin 13.9 g/dL (12.2-16.2); Lymphocytes # 1.7 K/mm3 (0.7-4.5); Lymphocytes % 7.6 K/mm3 (10-50); Mean Corpuscular HGB Conc 32.1 g/dL (31.8-35.4); Mean Corpuscular Volume 93.5 fl (81-99); Mean Platelet Volume 7.1 fl (7.4-10.4); Monocytes # 0.6 K/mm3 (0.1-1.0); Monocytes % 2.8 % (1.7-9.3); Neutrophils # 19.7 K/mm3 (1.8-7.8); Neutrophils % 89.5 % (37.0-80.0); Platelet Count 578 K/mm3 (142-424); Red Blood Count 4.62 M/mm3 (4.20-5.40); Red Cell Distribution Width 14.1 % (11.5-17.5)
[2018-06-01 20:01] LABS: Alanine Aminotransferase 20 U/L (12-78); Albumin Level 3.6 gm/dL (3.4-5.0); Albumin/Globulin Ratio 0.9 (1.1-1.8); Alkaline Phosphatase 122 U/L (46-116); Aspartate Amino Transferase 19 U/L (15-37); Bilirubin,Total 0.4 mg/dL (0.2-1.0); Blood Urea Nitrogen 12 mg/dL (7-18); Calcium 8.7 mg/dL (8.5-10.1); Carbon Dioxide 27 mmol/L (21.0-32.0); Chloride 96 mmol/L (98-107); Creatine Kinase 88 U/L (26-192); Glucose 98 mg/dL (74-106); Sodium 133 mmol/L (136-145); Total Protein,Serum 7.6 gm/dL (6.4-8.2)
[2018-06-01 20:10] LABS: Lymphocytes % 7 % (10-50); Monocytes % 6 % (2-9); Neutrophils % 87 % (42-76); Total Cells Counted 100
[2018-06-01 20:11] LABS: RBC Morphology Normal
--- NOTE | 2018-06-01 20:24 | Emergency Department Note ---
ED Disposition Clinical Impression: Acute exacerbation of chronic obstructive airways disease, Tobacco use, Low body mass index (BMI) Community acquired pneumonia Qualifiers: Laterality: left Lung location: upper lobe of lung Qualified Code(s): J18.1 - Lobar pneumonia, unspecified organism Leukocytosis Qualifiers: Leukocytosis type: unspecified Qualified Code(s): D72.829 - Elevated white blood cell count, unspecified Disposition: Admitted As Inpatient Condition on Discharge: Good Referrals: Sahara Edwards [Primary Care Provider] - - Critical Care Critical Care Time: No Attestation: On 06/01/18, the high probability of a clinically significant, sudden or life threatening deterioration of the following system(s) required my full and direct attention, intervention and personal management. The time I documented below is in addition to time spent performing reported procedures but includes the following listed in this critical care notation. Medical Decision Making - Medical Records Medical records reviewed: Yes: I reviewed the patient's medical records. - Mike Inquiry Pt receiving controlled substance: No Vital Signs: 06/01/18 19:06 06/01/18 19:30 06/01/18 19:45 Temperature 100.7 F H Temperature Source Oral Pulse Rate 114 H Pulse Rate [Right Brachial] 130 H 110 H Respiratory Rate 26 H 20 Blood Pressure [Right Arm] 125/82 113/56 Blood Pressure Mean [Right Arm] 96 75 Blood Pressure Source [Right Arm] Automatic Cuff Blood Pressure Position [Right Arm] Sitting 02 Sat by Pulse Oximetry 88 L 98 Oxygen Delivery Method Room Air Room Air Oxygen Flow Rate (LPM) 06/01/18 19:52 06/01/18 20:11 06/01/18 20:28 Temperature 99.1 F 99.0 F 99.4 F Temperature Source Oral Oral Oral Pulse Rate Pulse Rate [Right Brachial] 118 H 109 H 110 H Respiratory Rate 22 20 21 Blood Pressure [Right Arm] 135/75 131/55 126/62 Blood Pressure Mean [Right Arm] 95 80 83 Blood Pressure Source [Right Arm] Blood Pressure Position [Right Arm] 02 Sat by Pulse Oximetry 97 94 L 93 L Oxygen Delivery Method Nasal Cannula Nasal Cannula Nasal Cannula Oxygen Flow Rate (LPM) 3 3 3 06/01/18 20:50 Temperature Temperature Source Pulse Rate Pulse Rate [Right Brachial] 119 H Respiratory Rate 22 Blood Pressure [Right Arm] 123/61 Blood Pressure Mean [Right Arm] 81 Blood Pressure Source [Right Arm] Blood Pressure Position [Right Arm] 02 Sat by Pulse Oximetry 94 L Oxygen Delivery Method Nasal Cannula Oxygen Flow Rate (LPM) 3 - Lab Data Lab results reviewed: Yes: I reviewed the patient's lab results. Lab Results 06/01/18 19:10: WBC 22.0 H*, RBC 4.62, Hgb 13.9, Hct 43.2, MCV 93.5, MCH 30.0, MCHC 32.1, RDW 14.1, Plt Count 578 H, MPV 7.1 L, Neut % (Auto) 89.5 H, Lymph % ( Auto) 7.6 L, [place] % (Auto) 2.8, Eos % (Auto) 0.0 L, Baso % (Auto) 0.1, Neut # ( Auto) 19.7 H, Lymph # (Auto) 1.7, [place] # (Auto) 0.6, Eos # (Auto) 0.0, Baso # ( Auto) 0.0, Total Counted 100, Neutrophils % (Manual) 87 H, Lymphocytes % (Manual ) 7 L, Monocytes % (Manual) 6, Platelet Estimate Slight increase, RBC Morphology Normal 06/01/18 19:10: Sodium 133 L, Potassium 4.0, Chloride 96 L, Carbon Dioxide 27, Anion Gap 14.0, BUN 12, Creatinine 0.86, Estimated Creat Clear 37, Estimated GFR 67, Est GFR ( Amer) 81, Glucose 98, Calcium 8.7, Total Bilirubin 0.4 , AST 19, ALT 20, Alkaline Phosphatase 122 H, Total Creatine Kinase 88, CK-MB ( CK-2) 0.9 D, CK-MB (CK-2) Rel Index 1.0, Troponin I < 0.02, Total Protein 7.6, Albumin 3.6, Globulin 4.0 H, Albumin/Globulin Ratio 0.9 L 06/01/18 19:10: Lactate 1.0 06/01/18 20:22: Specimen Source Rt radial, O2 % 32, ABG pH 7.39, ABG pCO2 38.7, ABG pO2 93.7, ABG HCO3 23.1, ABG Total CO2 24.2, ABG O2 Saturation 97, ABG Base Excess -1.9, Sam Test Acceptable Result diagrams: 06/01/18 19:10 06/01/18 19:10 Orders (Tests/Meds): ED MEDICATIONS Generic Name Dose Route Start Last Admin Trade Name Freq PRN Reason Stop Dose Admin Ceftriaxone Sodium 1 gm/ 50 mls @ 100 mls/hr 06/01/18 20:00 06/01/18 20:02 Sodium Chloride IV 06/15/18 19:59 100 mls/hr Q24H ZENY Administration Protocol Azithromycin 500 mg/ Sodium 250 mls @ 250 mls/hr 06/01/18 20:00 06/01/18 20: 02 Chloride IV 06/15/18 19:59 250 mls/hr Q24H ZENY Administration Protocol Sodium Chloride 1,000 mls @ 999 mls/hr 06/01/18 21:00 06/01/18 20:50 Sod Chlor 0.9% 1000ml Bag IV 06/01/18 22:00 999 mls/hr .Q1H1M ZENY Administration Sodium Chloride 3 ml 06/01/18 19:11 Sodium Chloride 3% 15ml Neb 07/01/18 19:10 ONCE PRN INDUCE SPUTUM COLLECTION Discontinued Medications Generic Name Dose Route Start Last Admin Trade Name Freq PRN Reason Stop Dose Admin Acetaminophen 650 mg 06/01/18 19:45 06/01/18 19:15 Acetaminophen 325mg Tab PO 06/01/18 19:46 650 mg ONCE ONE Administration Albuterol/Ipratropium 3 ml 06/01/18 19:13 06/01/18 19:16 Duoneb 3ml [facility] 06/01/18 19:14 3 ml ONCE ONE Administration Sodium Chloride 1,000 mls @ 999 mls/hr 06/01/18 19:15 06/01/18 19:16 Sod Chlor 0.9% 1000ml Bag IV 06/01/18 20:15 999 mls/hr .Q1H1M ZENY Administration Methylprednisolone Sodium Succinate 125 mg 06/01/18 19:13 06/01/18 19:16 Solu-Medrol 125mg/2ml Vial IV 06/01/18 19:14 125 mg ONCE ONE Administration Ondansetron HCl 4 mg 06/01/18 20:49 06/01/18 20:50 Zofran 4mg/2ml Vial IV 06/01/18 20:50 4 mg ONCE ONE Administration ORDERS Category Date Time Status Blood Culture Stat Micro 06/01/18 19:11 Ordered Sputum Culture & Gram Stain Stat Micro 06/01/18 20:22 Received ECG Request by /Quinn Stat Y 06/01/18 19:11 Ordered - Radiology Data #1 Image(s): Chest Image Reviewed: Yes I reviewed the patient's radiology image Preliminary Findings: Abnormal (copd/llcap) - ECG Data Tracing #1 I reviewed this ECG and interpreted as documented below: Arrhythmias present: sinus tach Ischemic changes: non-specific ST-T wave changes - Physician Consults Physician Consulted: lily Reason -: Admission Resp/SOB HPI - General Chief Complaint: Shortness of Breath/Dyspnea Stated Complaint: soa Time Seen by Provider: 06/01/18 20:00 Mode of Arrival: EMS Limitations: No Limitations Description of Symptoms (Recalled from ER Triage Doc. by RN): Reports soa for 2 days, states she has had a cough, with sputum production, states fever today only. Room air sat 88%. Pt normally on 3L [place], placed back on 2l [place]. Pt with labored breathing at this, wheezing t/o lung hartmann. Reports she just finished azithromycin 2 days ago for pneumonia. - History of Present Illness wf with copd on o2 at home and has over the last few days has prod cough with fever - MD Complaint: shortness of breath, cough Onset (ago): day(s) Severity: moderate Known history of: COPD Associated symptoms: wheezing Treatment prior to arrival: oxygen - Related Data Home oxygen amount: 2 liters Home Medications Medication Instructions Recorded Confirmed Albuterol Sulfate [Albuterol HFA 1 - 2 puffs IH Q4-6H PRN 01/21/18 06/01/18 Inhaler] Aspirin [Aspir 81] 81 mg PO DAILY 01/21/18 06/01/18 Ipratropium/Albuterol Sulfate 3 ml IH Q4-6H PRN 01/21/18 06/01/18 [Duoneb 3mL neb] Polyethylene Glycol 3350 [Miralax 17 gm PO DAILY 01/21/18 06/01/18 17gm Packet] Fluticasone Propionate [Flovent 1 puff IH BID 04/09/18 06/01/18 Diskus] Ropinirole HCl 1 mg PO HS 04/09/18 06/01/18 Umeclidinium Brm/Vilanterol Tr 1 puff IH DAILY 04/09/18 06/01/18 [Anoro Ellipta 62.5-25 Mcg INH] buPROPion HCl [Wellbutrin SR 150mg 150 mg PO DAILY 04/09/18 06/01/18 Tablet] Benazepril HCl 5 mg PO DAILY 04/10/18 06/01/18 Nitroglycerin 0.4 mg SL NEEDED PRN MDD 3 TABS 04/10/18 06/01/18 cefUROXime axetil [Ceftin 500mg 500 mg PO BID 04/22/18 06/01/18 Tab (GEQ)] predniSONE [Deltasone 10mg tablet] 10 mg PO DIRECTED 04/22/18 06/01/18 Azithromycin [Zithromax 250mg 250 mg PO DIRECTED 06/01/18 06/01/18 tab] Benzonatate [Tessalon Perle 100mg 100 mg PO TID 06/01/18 06/01/18 Cap] predniSONE [Prednisone 20mg 20 mg PO BID 06/01/18 06/01/18 Tab] Allergies Allergy/AdvReac Type Severity Reaction Status Date / Time clopidogrel [From PLAVIX] Allergy Unknown S-SKIN Verified 01/21/18 10:[address] [facility] History I have reviewed the patient's past medical history: Yes Medical History: Reports:: Congestive Heart Failure, Coronary Artery Disease, Home Oxygen, Hypertension, Myocardial Infarction, Palpitations, Peripheral Vascular Disease Denies:: Cancer, Diabetes Mellitus Type 1, Diabetes Mellitus Type 2, MRSA, Seizures Other Medical History: Reports: Arthritis, Fibromyalgia, Hoarseness Laterality Cases: Right: Carpal Tunnel Release Other Surgeries: Yes: Cardiac Catheterization, Colonoscopy, Hernia Repair, Hysterectomy-Total Amputation: No Fractures: No - Social History Smoking Status: Current every day smoker Tobacco Type: cigarettes # Packs/Day (cigarettes): 1 Alcohol Intake: never Alcohol Intake Frequency:: 0-2 drinks per day Occupational Status: disabled Housing: apartment Household Members: friend(s) - Psychiatric History Expresses thoughts of harming self/others: None Suicide Plan Description: No Plan Family Hx:: Adopted, Cancer, Coronary Artery Disease, Heart Attack, Hyperlipidemia, Hypertension ROS Obtained: Yes All systems reviewed & no additional complaints - Constitutional Constitutional: Reports fever(s), Reports malaise - Eyes Eyes: Denies change in vision - ENT Ears, Nose, Mouth, and Throat: Denies sore throat - Cardiovascular Cardiovascular: Denies chest pain - Respiratory Respiratory: Yes change in phlegm color, Yes cough, No coughing up blood - Gastrointestinal Gastrointestingal: Denies: abdominal pain - Genitourinary Female Genitourinary: Denies hematuria - Musculoskeletal Musculoskeletal: Denies joint pain - Integumentary/Breasts Skin/Breast: Denies rash - Neurologic Neurologic: Denies seizure-like activity Physical Exam - General General appearance: alert, in no apparent distress, cachectic - Head Head exam: normocephalic - Eye Eye exam: Present: PERRL, EOMI. Absent: scleral icterus - ENT ENT exam: Present: mucous membranes dry - Neck Neck exam: Present: trachea midline - Respiratory Respiratory exam: Present: wheezes. Absent: respiratory distress - Cardiovascular Cardiovascular exam: Present: regular rate, systolic murmur, +S4 - Abdominal Exam Abdominal exam: Present: soft - Extremities Exam Extremities exam: Absent: calf tenderness - Neurological Exam Neurological exam: Present: alert, oriented X3, CN II-XII intact - Psychiatric Psychiatric exam: Present: normal affect - Skin Skin exam: Absent: rash
[2018-06-01 20:42] LABS: ABG Base Excess -1.9 mmol/L (-2.4-2.3); ABG HCO3 23.1 mmhg (22.0-26.0); ABG Oxygen Saturation 97 % (90-100); ABG PCO2 38.7 mmhg (35.0-45.0); ABG PH 7.39 mmol/L (7.35-7.45); ABG PO2 93.7 mmhg (80-100); ABG TCO2 24.2 mmhg (23-27)
[2018-06-01 20:45] LABS: Allen's Test Acceptable; Oxygen 32 %
--- NOTE | 2018-06-02 07:02 | History & Physical Report ---
*Admission Date: 06/01/18 *Chief complaint: Fever *History of present illness: 63-year-old female with known COPD, chronic respiratory failure, home oxygen use at 2-1/2 L/min presented to the emergency department after having fevers to 101 throughout the day along with generalized weakness. Patient denies significant change in her respiratory status. She noticed slight increase in frequency of cough but no sputum production until she arrived here to the emergency department. Patient underwent evaluation and was diagnosed with community-acquired pneumonia seen on x-ray. She was placed on Rocephin and azithromycin and has been admitted. Patient is a smoker and smokes at least one pack of cigarettes per day [facility] History I have reviewed the patient's past medical history: Yes Medical History: Reports:: Coronary Artery Disease, Home Oxygen, Hypertension, Myocardial Infarction, Palpitations, Peripheral Vascular Disease Denies:: Cancer, Diabetes Mellitus Type 1, Diabetes Mellitus Type 2, MRSA, Seizures Other Medical History: Reports: Arthritis, Fibromyalgia, Hoarseness Comment: Mild pulmonary hypertension on echocardiogram January 2017 Laterality Cases: Right: Carpal Tunnel Release Other Surgeries: Yes: Cardiac Catheterization, Colonoscopy, Hernia Repair, Hysterectomy-Total Amputation: No Fractures: No - *Social History Smoking Status: Current every day smoker Tobacco Type: cigarettes # Packs/Day (cigarettes): 1 Alcohol Intake: never Alcohol Intake Frequency:: 0-2 drinks per day Occupational Status: disabled Housing: apartment Household Members: friend(s) - Psychiatric History Expresses thoughts of harming self/others: None Suicide Plan Description: No Plan *Family Hx:: Adopted, Cancer, Coronary Artery Disease, Heart Attack, Hyperlipidemia, Hypertension Review of Systems - Review of Systems Review of systems:: pertinent systems reviewed and negative unless documented below - Constitutional Reports fever(s), Denies body ache(s), Denies chills - *Cardiovascular Denies chest pain, Denies chest pain at rest - *Respiratory Reports cough, Denies change in phlegm color, Denies excessive phlegm production - *Neurologic Denies seizure-like activity Meds Home Medications Medication Instructions Recorded Confirmed Type Albuterol Sulfate [Albuterol HFA 1 - 2 puffs IH Q4-6H PRN 01/21/18 06/01/18 History Inhaler] Aspirin [Aspir 81] 81 mg PO DAILY 01/21/18 06/02/18 History Ipratropium/Albuterol Sulfate 3 ml IH Q4-6H PRN 01/21/18 06/02/18 History [Duoneb 3mL neb] Fluticasone Propionate [Flovent 1 puff IH BID 04/09/18 06/02/18 History Diskus] Ropinirole HCl 1 mg PO HS 04/09/18 06/01/18 History Umeclidinium Brm/Vilanterol Tr 1 puff IH DAILY 04/09/18 06/01/18 History [Anoro Ellipta 62.5-25 Mcg INH] Benazepril HCl 5 mg PO DAILY 04/10/18 06/02/18 History Nitroglycerin 0.4 mg SL NEEDED PRN MDD 3 TABS 04/10/18 06/02/18 History Allergies Allergy/AdvReac Type Severity Reaction Status Date / Time clopidogrel [From PLAVIX] Allergy Unknown S-SKIN Verified 01/21/18 10:46 ERUPTIONS Exam Vital signs and Labs for Last 24 Hours: Temp Pulse Resp BP Pulse Ox 98.0 F 88 18 103/48 96 06/02/18 04:01 06/02/18 06:43 06/02/18 04:01 06/02/18 04:01 06/02/18 06:43 Laboratory Results - last 24 hr 06/01/18 19:10: WBC 22.0 H*, RBC 4.62, Hgb 13.9, Hct 43.2, MCV 93.5, MCH 30.0, MCHC 32.1, RDW 14.1, Plt Count 578 H, MPV 7.1 L, Neut % (Auto) 89.5 H, Lymph % ( Auto) 7.6 L, [place] % (Auto) 2.8, Eos % (Auto) 0.0 L, Baso % (Auto) 0.1, Neut # ( Auto) 19.7 H, Lymph # (Auto) 1.7, [place] # (Auto) 0.6, Eos # (Auto) 0.0, Baso # ( Auto) 0.0, Total Counted 100, Neutrophils % (Manual) 87 H, Lymphocytes % (Manual ) 7 L, Monocytes % (Manual) 6, Platelet Estimate Slight increase, RBC Morphology Normal 06/01/18 19:10: Sodium 133 L, Potassium 4.0, Chloride 96 L, Carbon Dioxide 27, Anion Gap 14.0, BUN 12, Creatinine 0.86, Estimated Creat Clear 37, Estimated GFR 67, Est GFR ( Amer) 81, Glucose 98, Calcium 8.7, Total Bilirubin 0.4 , AST 19, ALT 20, Alkaline Phosphatase 122 H, Total Creatine Kinase 88, CK-MB ( CK-2) 0.9 D, CK-MB (CK-2) Rel Index 1.0, Troponin I < 0.02, Total Protein 7.6, Albumin 3.6, Globulin 4.0 H, Albumin/Globulin Ratio 0.9 L 06/01/18 19:10: Lactate 1.0 06/01/18 20:22: Specimen Source Rt radial, O2 % 32, ABG pH 7.39, ABG pCO2 38.7, ABG pO2 93.7, ABG HCO3 23.1, ABG Total CO2 24.2, ABG O2 Saturation 97, ABG Base Excess -1.9, Sam Test Acceptable 06/01/18 22:00: Troponin I < 0.02 06/02/18 00:30: Troponin I < 0.02 06/02/18 03:50: Troponin I < 0.02 I & O for Last 24 hours: Intake & Output 05/30/18 05/31/18 06/01/18 06/02/18 11:59 11:59 11:59 11:59 Intake Total 1850 / 1850 Balance 1850 / 1850 Weight 88 lb 9 oz Microbiology Reports for the Last 24 Hours: Microbiology 06/01/18 20:22 Sputum - Expectorated Sputum Gram Stain - Final - Constitutional no acute distress, thin - *Routine Respiratory Exam Present: decreased breath sounds, rales (Posterior left upper lung). Absent: accessory muscle use, patient mechanically ventilated, respiratory distress, rhonchi, wheezes - *Routine Cardiovascular Exam Present: RRR, Normal S1, Normal S2 - *Routine Extremities Exam Present: pulses intact, normal capillary refill - *Routine Neurological Exam Present: alert, oriented X3. Absent: sensory deficit, motor deficit Assessment and Plan (1) Community acquired pneumonia Current visit: Yes Status: Acute Qualifiers: Laterality: left Lung location: upper lobe of lung Qualified Code(s): J18.1 - Lobar pneumonia, unspecified organism Category: Medical Code(s): J18.9 - Pneumonia, unspecified organism (2) Mild pulmonary hypertension Current visit: Yes Status: Chronic Category: Medical Code(s): I27.20 - Pulmonary hypertension, unspecified (3) Chronic respiratory failure Current visit: Yes Status: Chronic Category: Medical Code(s): J96.10 - Chronic respiratory failure, unspecified whether with hypoxia or hypercapnia (4) On home oxygen therapy Current visit: Yes Status: Chronic Category: Medical Code(s): Z99.81 - Dependence on supplemental oxygen (5) Hypertension Current visit: Yes Status: Chronic Category: Medical Code(s): I10 - Essential (primary) hypertension (6) Body mass index (BMI) less than 16.5 Current visit: Yes Status: Acute Category: Medical Code(s): Z68.1 - Body mass index (BMI) 19.9 or less, adult (7) Low body mass index (BMI) Current visit: Yes Status: Acute Category: Medical (8) CAD (coronary artery disease) Current visit: No Status: Chronic Category: Medical Code(s): I25.10 - Atherosclerotic heart disease of [place] coronary artery without angina pectoris (9) COPD (chronic obstructive pulmonary disease) Current visit: No Status: Chronic Category: Medical Code(s): J44.9 - Chronic obstructive pulmonary disease, unspecified (10) Cigarette smoker Current visit: No Status: Chronic Category: Social Hx Code(s): F17.210 - Nicotine dependence, cigarettes, uncomplicated - Assessment and plan all Dx Assessment and Plan for all problems:: 1. Rocephin and azithromycin for community-acquired pneumonia 2. Duo nebs 4 times daily 3. Home medications
[2018-06-02 07:26] LABS: Hematocrit 36.6 % (37.0-47.0); Lymphocytes # 0.7 K/mm3 (0.7-4.5); Lymphocytes % 3.8 K/mm3 (10-50); Mean Corpuscular HGB Conc 31.6 g/dL (31.8-35.4); Mean Corpuscular Hemoglobin 30.7 pg (27.0-31.2); Mean Corpuscular Volume 97.1 fl (81-99); Mean Platelet Volume 7.1 fl (7.4-10.4); Monocytes # 0.3 K/mm3 (0.1-1.0); Monocytes % 1.8 % (1.7-9.3); Neutrophils # 17.6 K/mm3 (1.8-7.8); Neutrophils % 94.4 % (37.0-80.0); Platelet Count 443 K/mm3 (142-424); Red Blood Count 3.77 M/mm3 (4.20-5.40); Red Cell Distribution Width 14.1 % (11.5-17.5); White Blood Count 18.6 K/mm3 (4.8-10.8)
[2018-06-02 07:50] LABS: Hemoglobin 11.6 g/dL (12.2-16.2)
[2018-06-02 08:14] LABS: Anion Gap 12.6 mEq/L (5-15); Calcium 8.5 mg/dL (8.5-10.1); Potassium 4.6 mmoL/L (3.5-5.1)
--- NOTE | 2018-06-02 08:21 | Pharmacy Consult Notes ---
[facility] Pharmacy VTE Monitoring - Patient Demographics Admission date: 06/01/18 Report Date: 06/02/18 Time: 08:20 Allergies/Adverse Reactions: Patient Allergies clopidogrel [From PLAVIX] Allergy (Unknown, Verified 01/21/18 10:46) S-SKIN ERUPTIONS Height: 1.63 m Weight: 40.171 kg Patient Problems: Current Active Problems Tobacco use (Acute) Leukocytosis (Acute) Acute exacerbation of chronic obstructive airways disease (Acute) Community acquired pneumonia (Acute) Low body mass index (BMI) (Acute) Mild pulmonary hypertension (Chronic) Chronic respiratory failure (Chronic) On home oxygen therapy (Chronic) Hypertension (Chronic) Body mass index (BMI) less than 16.5 (Acute) - VTE Risk Labs: VTE Related Lab Results Hgb 11.6 g/dL (12.2-16.2) L D 06/02/18 06:19 Hct 36.6 % (37.0-47.0) L 06/02/18 06:19 Plt Count 443 K/mm3 (142-424) H 06/02/18 06:19 BUN 9 mg/dL (7-18) 06/02/18 06:19 Creatinine 0.89 mg/dL (0.55-1.02) 06/02/18 06:19 Estimated Creat Clear 37 mL/min (0-300) 06/02/18 06:19 VTE Score: 11 VTE Risk Level: Moderate Risk Clinical Trial Participant: No - Prophylaxis VTE Prophylaxis Ordered?: Yes Types of VTE Prophylaxis: TEDS Knee High
[2018-06-02 10:02] LABS: Lymphocytes % 3 % (10-50); Neutrophils % 97 % (42-76); Total Cells Counted 100
[2018-06-02 10:03] LABS: RBC Morphology Normal
[2018-06-03 06:39] LABS: Basophils % 0.1 % (0.1-2.0); Hematocrit 37.3 % (37.0-47.0); Hemoglobin 11.5 g/dL (12.2-16.2); Lymphocytes # 2.1 K/mm3 (0.7-4.5); Lymphocytes % 9.7 K/mm3 (10-50); Mean Corpuscular HGB Conc 30.8 g/dL (31.8-35.4); Mean Corpuscular Hemoglobin 30.3 pg (27.0-31.2); Mean Corpuscular Volume 98.3 fl (81-99); Mean Platelet Volume 7.2 fl (7.4-10.4); Monocytes # 0.5 K/mm3 (0.1-1.0); Monocytes % 2.4 % (1.7-9.3); Neutrophils # 18.7 K/mm3 (1.8-7.8); Neutrophils % 87.7 % (37.0-80.0); Platelet Count 455 K/mm3 (142-424); Red Blood Count 3.79 M/mm3 (4.20-5.40); Red Cell Distribution Width 14.2 % (11.5-17.5); White Blood Count 21.4 K/mm3 (4.8-10.8)
[2018-06-03 07:09] LABS: Lymphocytes % 12 % (10-50); Monocytes % 2 % (2-9); Neutrophils % 86 % (42-76); Total Cells Counted 100
[2018-06-03 07:10] LABS: RBC Morphology Normal
--- NOTE | 2018-06-03 08:01 | Discharge Summary ---
General - General Admission date:: 06/01/18 Discharge date: 06/03/18 HPI HPI: 63-year-old female with known COPD, chronic respiratory failure, home oxygen use at 2-1/2 L/min presented to the emergency department after having fevers to 101 throughout the day along with generalized weakness. Patient denies significant change in her respiratory status. She noticed slight increase in frequency of cough but no sputum production until she arrived here to the emergency department. Patient underwent evaluation and was diagnosed with community-acquired pneumonia seen on x-ray. She was placed on Rocephin and azithromycin and has been admitted. Patient is a smoker and smokes at least one pack of cigarettes per day Hospital Course Hospital Course: Patient was admitted and placed on Rocephin, azithromycin, prednisone, duo nebs. By the following morning her white count had decreased. Chest x-ray was confirmed to have left upper lobe pneumonia although on physical exam she had only diminished breath sounds with some scattered wheezing. Patient's appetite was good and she ambulated. Patient did sign consent to leave the floor and it was suspected she was likely trying to smoke. By the morning of the patient felt like she had returned to baseline. Vital signs supported this is her pulse oximetry was in the high 90s on 2-1/2 L/min which is her oxygen flow rate at home. Sputum culture was growing gram-positive cocci. As patient felt like she had returned to baseline she was discharged home. White count was noted to be elevated but I believe this was due to prednisone. Patient will be discharged on doxycycline and she will follow-up with her primary care physician Dr. Mariama Edwards early next week Objective Vital signs: Temp Pulse Resp BP Pulse Ox 98.1 F 78 24 118/68 98 06/03/18 04:00 06/03/18 06:32 06/03/18 04:00 06/03/18 04:00 06/03/18 06:32 Results Labs on day of discharge: Labs from last 24 hours 06/03/18 06/02/18 06/02/18 06:17 06:19 06:19 WBC 21.4 H* RBC 3.79 L Hgb 11.5 L Hct 37.3 MCV 98.3 MCH 30.3 MCHC 30.8 L RDW 14.2 Plt Count 455 H MPV 7.2 L Neut % (Auto) 87.7 H Lymph % (Auto) 9.7 L [place] % (Auto) 2.4 Eos % (Auto) 0.0 L Baso % (Auto) 0.1 Neut # (Auto) 18.7 H Lymph # (Auto) 2.1 [place] # (Auto) 0.5 Eos # (Auto) 0.0 Baso # (Auto) 0.0 Total Counted 100 100 Neutrophils % (Manual) 86 H 97 H Lymphocytes % (Manual) 12 3 L Monocytes % (Manual) 2 Platelet Estimate Slight increase Slight increase RBC Morphology Normal Normal Sodium 135 L Potassium 4.6 Chloride 99 Carbon Dioxide 28 Anion Gap 12.6 BUN 9 Creatinine 0.89 Estimated Creat Clear 37 Estimated GFR 64 Est GFR ( Amer) 78 Glucose 223 H D Calcium 8.5 Magnesium 2.0 Preliminary micro results at discharge 06/01/18 20:22 Sputum Culture - Preliminary Sputum - Expectorated Sputum Gram Positive Cocci DS: Diagnosis - Discharge Diagnosis (1) Community acquired pneumonia Status: Acute (2) Mild pulmonary hypertension Status: Chronic (3) Chronic respiratory failure Status: Chronic (4) On home oxygen therapy Status: Chronic (5) Hypertension Status: Chronic (6) Body mass index (BMI) less than 16.5 Status: Acute (7) Low body mass index (BMI) Status: Acute (8) CAD (coronary artery disease) Status: Chronic (9) COPD (chronic obstructive pulmonary disease) Status: Chronic (10) Cigarette smoker Status: Chronic Discharge Plan - Patient Discharge Instructions ACTIVITY: Continue current activity DIET: continue same diet - Follow up Plan Follow up with: Sahara Edwards [Primary Care Provider] - 2 days Disposition: Home, Self-Retirement Medications: Home Medications Medication Instructions Recorded Confirmed Type Albuterol Sulfate [Albuterol HFA 1 - 2 puffs IH Q4-6H PRN 01/21/18 06/01/18 History Inhaler] Aspirin [Aspir 81] 81 mg PO DAILY 01/21/18 06/02/18 History Ipratropium/Albuterol Sulfate 3 ml IH Q4-6H PRN 01/21/18 06/02/18 History [Duoneb 3mL neb] Fluticasone Propionate [Flovent 1 puff IH BID 04/09/18 06/02/18 History Diskus] Ropinirole HCl 1 mg PO HS 04/09/18 06/01/18 History Umeclidinium Brm/Vilanterol Tr 1 puff IH DAILY 04/09/18 06/01/18 History [Anoro Ellipta 62.5-25 Mcg INH] Nitroglycerin 0.4 mg SL NEEDED PRN MDD 3 TABS 04/10/18 06/02/18 History Benazepril HCl 5 mg PO DAILY 06/02/18 06/02/18 History Venlafaxine HCl [Effexor XR 75mg 75 mg PO DAILY 06/02/18 06/02/18 History capsule] buPROPion HCl [Bupropion Xl] 150 mg PO DAILY 06/02/18 06/02/18 History Prescriptions/Medication Reconciliation: New Amoxicillin [Amoxicillin 500mg Tab] 2 tab PO BID #28 tab Doxycycline Hyclate [Vibramycin] 100 mg PO BID #14 cap Continue Aspirin [Aspir 81] 81 mg PO DAILY Umeclidinium Brm/Vilanterol Tr [Anoro Ellipta 62.5-25 Mcg INH] 1 puff IH DAILY Fluticasone Propionate [Flovent Diskus] 1 puff IH BID Ropinirole HCl 1 mg PO HS Nitroglycerin 0.4 mg SL NEEDED PRN MDD 3 TABS PRN Reason: Chest Pain Benazepril HCl 5 mg PO DAILY Ipratropium/Albuterol Sulfate [Duoneb 3mL neb] 3 ml IH Q4-6H PRN PRN Reason: Shortness Of Breath Albuterol Sulfate [Albuterol HFA Inhaler] 1 - 2 puffs IH Q4-6H PRN PRN Reason: Shortness Of Breath Or Wheezing Venlafaxine HCl [Effexor XR 75mg capsule] 75 mg PO DAILY buPROPion HCl [Bupropion Xl] 150 mg PO DAILY
== END 2018-06-03 10:38 | disposition home or self-care (01) ==
LOC: ER 19:04 → 2ND 21:02
PROVIDERS: ADMIT Family Medicine; ATTEND Family Medicine
CPT/HCPCS: 36415; 71020; 71046; 80048; 80053; 82550; 82553; 82803; 83605; 83735; 84484; 85007; 85025; 87040; 87070; 87077; 87186; 87205; 93005; 94640; 96365; 96366; 96367; 96375; 99285; J0456; J2405

== ENCOUNTER 2019-01-26 19:32 | Emergency (ER) | payer MEDICARE, SELFPAY ==
[2019-01-26 19:37] VITALS: BP 148/85; PULSE 62; RESP 20; TEMP 36.8; O2SAT 98; BMI 16.5
--- NOTE | 2019-01-26 19:48 | XR_ITS ---
XR pelvis 1-2V Ordering Physician: Bonifacio Betts MD Patient Age: 63 years: Female HISTORY: ITS.REASON: fall pelvic pain TECHNIQUE: AP osseous pelvis COMPARISON :CT lumbar spine July 2018 preparing box tender view FINDINGS Single view. The osseous pelvis is intact with no fracture or acute findings. AP view of the hips satisfactory bilaterally. A right iliac artery stent is noted in place a extends for 9.2 seem in length through the right common femoral artery and may continue into the right external iliac. IMPRESSION: -------- AP pelvis. Intact. No acute findings . Hip joints well-maintained Right iliac artery stent
--- NOTE | 2019-01-26 19:48 | CT_ITS ---
CT cervical spine wo con Ordering Physician: Bonifacio Betts MD Patient Age: 63 years: Female HISTORY: ITS.REASON: fallneck pain TECHNIQUE: Helical CT scanning performed at of C-spine.. Axial sagittal and coronal reconstructions performed on CT workstation. All CT scans at this facility used one or more dose reduction techniques , viz: automatic exposure control, ma/Kv adjustment per patient's size, (including targeted exam where dose matched to the indication; i.e. head); or iterative reconstruction technique COMPARISON :None relevant FINDINGS Cervical spine is intact with no fracture or subluxation.\Prevertebral soft tissues appear normal. . Odontoid intact. C-spine with normal alignment. No subluxation. No listhesis C1-C2 relationships satisfactory vertebral bodies intact. Degenerative disc space narrowing at C5-6 with diffuse posterior osteophytic ridging this level slightly effacing the anterior thecal sac. The posterior ridging most evident just to the right of midline & extending 2 mm posterior to indents the thecal sac to the right. Neural foramen with only scant foraminal encroachment. Mild degenerative facet changes most evident on the left from C2-C6. Only mild foraminal encroachment at C5-C6 overall neural foramen widely patent Lung apices reveal no pneumothorax with are emphysematous changes & Chronic changes seen at the apices the lungs. The. Pleural & parenchymal scarring bilaterally mostly within the right apex. Postsurgical changes and right apical cap right lung Note generous lymphoid tissue is seen towards along base tongue towards vallecula, reflecting residual lingual tonsil prominence. Generous uvula also noted.. Correlation clinically IMPRESSION: ...... No acute fracture nor subluxation cervical spine Multilevel Degenerative changes C-spine.: Degenerative disc space narrowing & .Spondylosis most evident at C5/6 . Degenerative facet changes bilaterally patient that, most evident left aspect of C-spine
--- NOTE | 2019-01-26 19:48 | XR_ITS ---
XR shoulder LT min 2V Ordering Physician: Bonifacio Betts MD Patient Age: 63 years: Female HISTORY: ITS.REASON: fall left shoulder pain TECHNIQUE: 3 views left shoulder COMPARISON :2 view chest from September 2018 partially filled FINDINGS No fracture nor dislocation. Left shoulder intact glenohumeral joint is intact AC joint intact. Scapula unremarkable. Left lung apex and upper left ribs unremarkable. IMPRESSION: Negative left shoulder. No fracture nor dislocation
--- NOTE | 2019-01-26 19:48 | XR_ITS ---
XR chest AP HISTORY: Chest pain ITS.REASON: fall ORDERING PHYSICIAN: Bonifacio Betts MD PATIENT AGE: 63 years COMPARISON: PA and lateral chest 09/17/2018 FINDINGS: Severe emphysematous changes seen with marked hyperexpansion of the lung hartmann and depression and flattening of the hemidiaphragms. There are multiple surgical jayce in the right apex. There is no acute infiltrate. Cardiac size is normal. There is some attenuation of the peripheral pulmonary vasculature. There is no obvious rib fracture and there is no pneumothorax. IMPRESSION: Rather severe COPD, no definite acute chest pathology noted
--- NOTE | 2019-01-26 19:48 | CT_ITS ---
CT head/brain wo con HISTORY: : fall. Head injury. Headache. Fell 3 times today recurrent falls ORDERING PHYSICIAN: Bonifacio Betts MD PATIENT AGE: 63 years COMPARISON: 320 11/28 and 11/04/2018 CT head without contrast TECHNIQUE: Axial images obtained without contrast. Brain and bone windows reviewed. All CT scans at the facility use one or more dose reduction, viz: automated exposure control, ma/kV adjustment per patient size (including targeted exams where dose is matched to indication, i.e. head), or iterative reconstruction technique. FINDINGS: No acute intracranial findings. No significant change when compared to 12/29/2018. There is some minor streak artifact from the inferior slices on the initial set of images and thus study was repeated but we still have some minor streak artifact however between these 2 sets of images overall provides satisfactory diagnostic study No midline shift, mass effect, intracranial hemorrhage, hydrocephalus, or extra-axial fluid collection is evident. The calvarium has an unremarkable appearance. Right Mastoid air cells well-developed with a few opacified air cells and right mastoid tip. Left mastoid air cells well-developed and clear. Middle ear clear. The visualized paranasal sinuses are clear. No sinus air-fluid levels.. IMPRESSION: No acute intracranial findings Brain appears stable & unchanged since margin October 2017 studies.
[2019-01-26 20:02] LABS: Microscopic, Urine URINE MICROSCOPIC (MICROSCOPIC)
[2019-01-26 20:06] LABS: Appearance,Urine CLEAR (Clear); Bilirubin,Urine Negative (Negative); Blood, Urine Negative (Negative); Color,Urine YELLOW (Yellow); Glucose,Urine (UA) Negative (Negative); Ketones,Urine Negative (Negative); Leukocyte Esterase,Urine Negative (Negative); Nitrate,Urine Negative (Negative); Protein,Urine Negative (Negative); Urobilinogen,Urine 0.2 EU/dl (0.2)
[2019-01-26 20:32] VITALS: BP 150/68; PULSE 99; RESP 20; O2SAT 98
[2019-01-26 20:32] LABS: Amphetamine/Metha Screen,Urine Negative ng/mL (<1000); Barbiturates Screen,Urine Negative ng/mL (<200); Benzodiazepines Screen,Urine Negative ng/mL (<200); Cannabinoid Screen,Urine Negative ng/mL (<50); Cocaine Screen,Urine Negative ng/mL (<300); Methadone Screen,Urine Negative ng/mL (<300); Opiate Screen,Urine Negative ng/mL (<300); Phencyclidine Screen,Urine Negative ng/mL (<25)
[2019-01-26 20:33] LABS: Bacteria,Urine Trace /lpf; WBC,Urine Occasional #/hpf (0-3)
[2019-01-26 20:43] LABS: Basophils # 0.1 K/mm3 (0-0.2); Basophils % 0.9 % (0.1-2.0); Eosinophils # 0.2 K/mm3 (0.0-0.4); Eosinophils % 3.7 % (0.1-12.0); Hematocrit 42.6 % (37.0-47.0); Hemoglobin 13.8 g/dL (12.2-16.2); Lymphocytes # 2.6 K/mm3 (0.7-4.5); Lymphocytes % 40.8 % (10-50); Mean Corpuscular HGB Conc 32.4 g/dL (31.8-35.4); Mean Corpuscular Hemoglobin 29.9 pg (27.0-31.2); Mean Corpuscular Volume 92.2 fl (81-99); Mean Platelet Volume 8.5 fl (7.4-10.4); Monocytes # 0.3 K/mm3 (0.1-1.0); Monocytes % 4.7 % (1.7-9.3); Neutrophils # 3.2 K/mm3 (1.8-7.8); Neutrophils % 49.8 % (37.0-80.0); Platelet Count 228 K/mm3 (142-424); Red Blood Count 4.62 M/mm3 (4.20-5.40); White Blood Count 6.4 K/mm3 (4.8-10.8)
[2019-01-26 20:59] LABS: Alanine Aminotransferase 21 U/L (12-78); Albumin Level 3.5 gm/dL (3.4-5.0); Alkaline Phosphatase 106 U/L (46-116); Anion Gap 9.5 mEq/L (5-15); Aspartate Amino Transferase 16 U/L (15-37); Bilirubin,Total 0.2 mg/dL (0.2-1.0); Blood Urea Nitrogen 17 mg/dL (7-18); C-Reactive Protein 1.2 mg/L (0.0-0.9); Calcium 8.8 mg/dL (8.5-10.1); Carbon Dioxide 31 mmol/L (21.0-32.0); Chloride 104 mmol/L (98-107); Creatinine Clearance Estimated 39 mL/min (50-200); Creatinine,Serum 0.79 mg/dL (0.55-1.02); Estimated Glomerular Filt Rate 74 ml/min (>60); GFR (African American) 89 ML/MIN (>60); Globulin 3.5 gm/dl (1.3-3.2); Glucose 83 mg/dL (74-106); Potassium 4.5 mmoL/L (3.5-5.1); Sodium 140 mmol/L (136-145)
--- NOTE | 2019-01-26 21:15 | [facility].EDDIZZ ---
ED Disposition Clinical Impression: Vertigo, Body mass index (BMI) less than 16.5 COPD (chronic obstructive pulmonary disease) Qualifiers: COPD type: unspecified COPD Qualified Code(s): J44.9 - Chronic obstructive pulmonary disease, unspecified Disposition: Home, Self-Care Condition on Discharge: Good Instructions: Vertigo Additional Instructions: fluids and call pcp for follow up Prescriptions: Meclizine HCl [Antivert 12.5mg tablet] 12.5 mg PO TID #30 tab Referrals: Sahara Edwards [Primary Care Provider] - - Critical Care Critical Care Time: No Attestation: On 01/26/19, the high probability of a clinically significant, sudden or life threatening deterioration of the following system(s) required my full and direct attention, intervention and personal management. The time I documented below is in addition to time spent performing reported procedures but includes the following listed in this critical care notation. Medical Decision Making - Medical Records Medical records reviewed: Yes: I reviewed the patient's medical records. - Mike Inquiry Pt receiving controlled substance: No Vital Signs: 01/26/19 19:37 01/26/19 20:32 01/26/19 22:00 Temperature 98.3 F Temperature Source Oral Pulse Rate [Right] 62 99 H 91 H Respiratory Rate 20 20 20 Blood Pressure [Right Arm] 148/85 H 150/68 H 146/80 H Blood Pressure Mean [Right Arm] 106 95 102 Blood Pressure Source [Right Arm] Automatic Cuff Automatic Cuff Automatic Cuff Blood Pressure Position [Right Arm] Sitting Sitting Sitting 02 Sat by Pulse Oximetry 98 98 99 Oxygen Delivery Method Nasal Cannula Nasal Cannula Nasal Cannula Oxygen Flow Rate (LPM) 2 2.5 2.5 - Lab Data Lab results reviewed: Yes: I reviewed the patient's lab results. Lab Results 01/26/19 19:50: Urine Color Yellow, Urine Appearance Clear, Urine pH 7.0, Ur Specific [place] 1.010, Urine Protein Negative, Urine Glucose (UA) Negative, Urine Ketones Negative, Urine Blood Negative, Urine Nitrate Negative, Urine Bilirubin Negative, Urine Urobilinogen 0.2, Ur Leukocyte Esterase Negative, Urine WBC Occasional, Ur Squamous Epith Cells 5-10, Urine Bacteria Trace 01/26/19 19:50: Urine Opiates Screen Negative, Urine Methadone Screen Negative, Ur Barbituates Screen Negative, Ur Phencyclidine Scrn Negative, Ur Amphetamines Screen Negative, U Benzodiazepines Scrn Negative, Urine Cocaine Screen Negative, U Marijuana (THC) Screen Negative 01/26/19 20:20: WBC 6.4, RBC 4.62, Hgb 13.8, Hct 42.6, MCV 92.2, MCH 29.9, MCHC 32.4, RDW 16.0, Plt Count 228, MPV 8.5, Neut % (Auto) 49.8, Lymph % (Auto) 40.8, [place] % (Auto) 4.7, Eos % (Auto) 3.7, Baso % (Auto) 0.9, Neut # (Auto) 3.2, Lymph # (Auto) 2.6, [place] # (Auto) 0.3, Eos # (Auto) 0.2, Baso # (Auto) 0.1, ESR 22 01/26/19 20:20: Sodium 140, Potassium 4.5, Chloride 104, Carbon Dioxide 31, Anion Gap 9.5, BUN 17, Creatinine 0.79, Estimated Creat Clear 39, Estimated GFR 74, Est GFR ( Amer) 89, Glucose 83, Calcium 8.8, Total Bilirubin 0.2, AST 16, ALT 21, Alkaline Phosphatase 106, C-Reactive Protein 1.2 H, Total Protein 7.0, Albumin 3.5, Globulin 3.5 H, Albumin/Globulin Ratio 1.0 L Result diagrams: 01/26/19 20:20 01/26/19 20:20 Orders (Tests/Meds): ED MEDICATIONS Generic Name Dose Route Start Last Admin Trade Name Freq PRN Reason Stop Dose Admin Sodium Chloride 500 mls @ 999 mls/hr 01/26/19 22:00 01/26/19 22:11 Sod Chlor 0.9% 1000ml Bag IV 01/26/19 22:30 999 mls/hr .Q31M ZENY Administration Meclizine HCl 12.5 mg 01/26/19 22:00 01/26/19 22:11 Antivert 12.5mg Tablet PO 02/25/19 21:59 12.5 mg ONCE ZENY Administration Discontinued Medications Generic Name Dose Route Start Last Admin Trade Name Freq PRN Reason Stop Dose Admin Methylprednisolone Sodium Succinate 125 mg 01/26/19 21:50 01/26/19 22:11 Solu-Medrol 125mg/2ml Vial IV 01/26/19 21:51 125 mg ONCE ONE Administration ORDERS Category Date Time Status CT cervical spine
--- NOTE | 2019-01-26 21:20 | ED_ITS ---
ED Disposition Clinical Impression: Vertigo, Body mass index (BMI) less than 16.5 COPD (chronic obstructive pulmonary disease) Qualifiers: COPD type: unspecified COPD Qualified Code(s): J44.9 - Chronic obstructive pulmonary disease, unspecified Disposition: Home, Self-Care Condition on Discharge: Good Instructions: Vertigo Additional Instructions: fluids and call pcp for follow up Prescriptions: Meclizine HCl [Antivert 12.5mg tablet] 12.5 mg PO TID #30 tab Referrals: Sahara Edwards [Primary Care Provider] - - Critical Care Critical Care Time: No Attestation: On 01/26/19, the high probability of a clinically significant, sudden or life threatening deterioration of the following system(s) required my full and direct attention, intervention and personal management. The time I documented below is in addition to time spent performing reported procedures but includes the following listed in this critical care notation. Medical Decision Making - Medical Records Medical records reviewed: Yes: I reviewed the patient's medical records. - Mike Inquiry Pt receiving controlled substance: No Vital Signs: 01/26/19 19:37 01/26/19 20:32 01/26/19 22:00 Temperature 98.3 F Temperature Source Oral Pulse Rate [Right] 62 99 H 91 H Respiratory Rate 20 20 20 Blood Pressure [Right Arm] 148/85 H 150/68 H 146/80 H Blood Pressure Mean [Right Arm] 106 95 102 Blood Pressure Source [Right Arm] Automatic Cuff Automatic Cuff Automatic Cuff Blood Pressure Position [Right Arm] Sitting Sitting Sitting 02 Sat by Pulse Oximetry 98 98 99 Oxygen Delivery Method Nasal Cannula Nasal Cannula Nasal Cannula Oxygen Flow Rate (LPM) 2 2.5 2.5 - Lab Data Lab results reviewed: Yes: I reviewed the patient's lab results. Lab Results 01/26/19 19:50: Urine Color Yellow, Urine Appearance Clear, Urine pH 7.0, Ur Specific [place] 1.010, Urine Protein Negative, Urine Glucose (UA) Negative, Urine Ketones Negative, Urine Blood Negative, Urine Nitrate Negative, Urine Bilirubin Negative, Urine Urobilinogen 0.2, Ur Leukocyte Esterase Negative, Urine WBC Occasional, Ur Squamous Epith Cells 5-10, Urine Bacteria Trace 01/26/19 19:50: Urine Opiates Screen Negative, Urine Methadone Screen Negative, Ur Barbituates Screen Negative, Ur Phencyclidine Scrn Negative, Ur Amphetamines Screen Negative, U Benzodiazepines Scrn Negative, Urine Cocaine Screen Negative, U Marijuana (THC) Screen Negative 01/26/19 20:20: WBC 6.4, RBC 4.62, Hgb 13.8, Hct 42.6, MCV 92.2, MCH 29.9, MCHC 32.4, RDW 16.0, Plt Count 228, MPV 8.5, Neut % (Auto) 49.8, Lymph % (Auto) 40.8, [place] % (Auto) 4.7, Eos % (Auto) 3.7, Baso % (Auto) 0.9, Neut # (Auto) 3.2, Lymph # (Auto) 2.6, [place] # (Auto) 0.3, Eos # (Auto) 0.2, Baso # (Auto) 0.1, ESR 22 01/26/19 20:20: Sodium 140, Potassium 4.5, Chloride 104, Carbon Dioxide 31, Anion Gap 9.5, BUN 17, Creatinine 0.79, Estimated Creat Clear 39, Estimated GFR 74, Est GFR ( Amer) 89, Glucose 83, Calcium 8.8, Total Bilirubin 0.2, AST 16, ALT 21, Alkaline Phosphatase 106, C-Reactive Protein 1.2 H, Total Protein 7.0, Albumin 3.5, Globulin 3.5 H, Albumin/Globulin Ratio 1.0 L Result diagrams: 01/26/19 20:20 01/26/19 20:20 Orders (Tests/Meds): ED MEDICATIONS Generic Name Dose Route Start Last Admin Trade Name Freq PRN Reason Stop Dose Admin
[2019-01-26 21:21] LABS: Erythrocyte Sedimentation Rate 22 mm/hr (0-30)
[2019-01-26 22:00] VITALS: BP 146/80; PULSE 91; RESP 20; O2SAT 99
[2019-01-26 22:30] VITALS: BP 146/82; PULSE 90; RESP 20; TEMP 36.8; O2SAT 94
== END 2019-01-26 22:33 | disposition home or self-care (01) ==
PROVIDERS: Emergency Medicine; Emergency Provider Emergency Medicine; PCP General Practice
DX: R42 Dizziness and giddiness (principal); J44.9 Chronic obstructive pulmonary disease, unspecified; Z99.81 Dependence on supplemental oxygen; I10 Essential (primary) hypertension; I73.9 Peripheral vascular disease, unspecified; I50.9 Heart failure, unspecified; I25.10 Atherosclerotic heart disease of native coronary artery without angina pectoris; M79.7 Fibromyalgia; F17.210 Nicotine dependence, cigarettes, uncomplicated
CPT/HCPCS: 36415; 70450; 71045; 72125; 72170; 73030; 80053; 80305; 81001; 85025; 85651; 86140; 93005; 96365; 96375; 99284

== ENCOUNTER 2019-06-08 08:45 | Outpatient (RCR) | payer MEDICARE, SELFPAY | END 2019-06-08 08:50 | disposition home or self-care (01) | LOC: PT 08:45 | PROVIDERS: Visit Provider General Practice | DX: R53.1 Weakness (principal) | CPT/HCPCS: 97542 ==

== ENCOUNTER 2019-08-14 16:25 | Inpatient (IN) ==
--- NOTE | 2019-08-14 16:43 | Emergency Department Note ---
ED Disposition Clinical Impression: Pneumonia, SIRS (systemic inflammatory response syndrome), COPD with exacerbation Disposition: Admitted as Observation Condition on Discharge: Serious Time of Disposition: 18:48 - Critical Care Critical Care Time: No Attestation: On , the high probability of a clinically significant, sudden or life threatening deterioration of the following system(s) required my full and direct attention, intervention and personal management. The time I documented below is in addition to time spent performing reported procedures but includes the following listed in this critical care notation. Medical Decision Making - Medical Records Medical records reviewed: Yes: I reviewed the patient's medical records. - Mike Inquiry Pt receiving controlled substance: No Mike was queried for this patient: No Vital Signs: 08/14/19 16:26 08/14/19 16:38 08/14/19 17:55 Temperature 103.2 F H 103.2 F H Temperature Source Oral Oral Pulse Rate [Right] 117 H 114 H 109 H Respiratory Rate 24 Blood Pressure [Right Arm] 147/65 H 147/65 H 138/61 Blood Pressure Mean [Right Arm] 92 92 86 02 Sat by Pulse Oximetry 91 L 91 L 91 L Oxygen Delivery Method Nasal Cannula Oxygen Flow Rate (LPM) 2 08/14/19 18:32 Temperature 99.2 F Temperature Source Oral Pulse Rate [Right] Respiratory Rate Blood Pressure [Right Arm] Blood Pressure Mean [Right Arm] 02 Sat by Pulse Oximetry Oxygen Delivery Method Oxygen Flow Rate (LPM) - Lab Data Lab results reviewed: Yes: I reviewed the patient's lab results. Lab Results 08/14/19 16:27: Influenza Type A Ag Negative, Influenza Type B Ag Negative 08/14/19 16:29: WBC 18.8 H, RBC 4.69, Hgb 14.4, Hct 44.3, MCV 94.4, MCH 30.6, MCHC 32.4, RDW 13.9, Plt Count 280, MPV 8.9, Neut % (Auto) 86.8 H, Lymph % (Auto) 8.9 L, [place] % (Auto) 3.6, Eos % (Auto) 0.1, Baso % (Auto) 0.6, Neut # (Auto) 16.3 H, Lymph # (Auto) 1.7, [place] # (Auto) 0.7, Eos # (Auto) 0.0, Baso # (Auto) 0.1, Total Counted 100, Neutrophils % (Manual) 84 H, Band Neutrophils % 1.0, Lymphocytes % (Manual) 8 L, Atypical Lymphs % 1.0, Monocytes % (Manual) 6, Platelet Estimate Normal, Stomatocytes 1+ 08/14/19 16:29: Sodium 134 L, Potassium 4.3, Chloride 98, Carbon Dioxide 25, Anion Gap 15.3 H, BUN 13, Creatinine 0.77, Estimated Creat Clear 39, Estimated GFR 76, Est GFR ( Amer) 92, Glucose 98, Calcium 9.1, Total Bilirubin 0.5, AST 26, ALT 25, Alkaline Phosphatase 88, Troponin I < 0.02, Total Protein 7.7, Albumin 3.4, Globulin 4.3 H, Albumin/Globulin Ratio 0.8 L 08/14/19 16:29: Lactate 1.4 Result diagrams: 08/14/19 16:29 08/14/19 16:29 Orders (Tests/Meds): ED MEDICATIONS Generic Name Dose Route Start Last Admin Trade Name Freq PRN Reason Stop Dose Admin Ceftriaxone Sodium 1 gm/ 50 mls @ 100 mls/hr 08/14/19 17:45 08/14/19 18:16 Sodium Chloride IV 08/28/19 17:44 100 mls/hr Q24H ZENY Administration Protocol Azithromycin 500 mg/ Sodium 250 mls @ 250 mls/hr 08/14/19 17:45 08/14/19 18:16 Chloride IV 08/28/19 17:44 250 mls/hr Q24H ZENY Administration Protocol Discontinued Medications Generic Name Dose Route Start Last Admin Trade Name Freq PRN Reason Stop Dose Admin Acetaminophen 1,000 mg 08/14/19 16:31 08/14/19 16:32 Tylenol 500mg Tablet PO 08/14/19 16:32 1,000 mg ONCE ONE Administration Acetaminophen 650 mg 08/14/19 17:41 Acetaminophen 325mg Tab PO 09/13/19 17:40 Q4HP PRN Fever > 100.4 Sodium Chloride 1,000 mls @ 999 mls/hr 08/14/19 16:30 08/14/19 16:32 Sod Chlor 0.9% 1000ml Bag IV 08/14/19 17:30 999 mls/hr .Q1H1M ZENY Administration Ioversol 70 ml 08/14/19 18:25 08/14/19 18:25 Rad-Optiray 350 100ml Vial IV 08/14/19 18:26 70 ml ONCE ONE Administration Protocol Methylprednisolone Sodium Succinate 125 mg 08/14/19 16:30 08/14/19 16:32 Solu-Medrol 125mg/2ml Vial IV 08/14/19 16:31 125 mg ONCE ONE Administration Sodium Chloride 40 ml 08/14/19 18:25 08/14/19 18:25 Rad-Ns 50ml Vial IV 08/14/19 18:26 40 ml ONCE ONE Administration Sodium Chloride 10 ml 08/14/19 18:25 08/14/19 18:25 Rad-Saline Flush 10ml Syringe IV 08/14/19 18:26 10 ml ONCE ONE Administration ORDERS Category Date Time Status CTA Chest [CT angio chest] Stat Cat Scan 08/14/19 17:38 Taken Urinalysis and Microscopic Stat Lab 08/14/19 18:00 Received Blood Culture Stat Micro 08/14/19 16:29 Received ECG Request by /Quinn Stat Y 08/14/19 16:33 Ordered - Physician Consults Physician Consulted: vannessa Time: 18:55 Reason -: Admission General Adult HPI - General Chief complaint: Shortness of Breath/Dyspnea Stated complaint: soa Time Seen by Provider: 08/14/19 16:40 Mode of Arrival: EMS Source of Information: Patient Limitations: No Limitations Description of Symptoms (Recalled from ER Triage Doc. by RN): Pt states for 2 days she has had fever, soa, congestion, and pleuritic pain. - History of Present Illness HPI narrative: relates to fever x3 days and now pleuritic like chest pain in left hemithorax associated with cough and deep breathing. Long history of copd, tobacco related disease. no calf pain, leg swelling, vte si/sx - Related Data Home Medications Medication Instructions Recorded Confirmed Albuterol Sulfate [Albuterol HFA 1 - 2 neb IH Q4-6H PRN 01/21/18 08/14/19 Inhaler] Ropinirole HCl 1 mg PO HS 04/09/18 08/14/19 Amitriptyline HCl [Elavil 10mg 10 mg PO DAILY 08/14/19 08/14/19 tablet] Aspirin [Aspirin 81mg chewable 81 mg PO DAILY 08/14/19 08/14/19 tab] Umeclidinium Brm/Vilanterol Tr 1 puff IH NEEDED PRN 08/14/19 08/14/19 [Anoro Ellipta 62.5-25 Mcg INH] Allergies Allergy/AdvReac Type Severity Reaction Status Date / Time clopidogrel [From PLAVIX] Allergy Unknown S-SKIN Verified 01/26/19 19:47 ERUPTIONS [facility] History - Hepatitis A Screen Drug use history?: No High risk sexual behaviors?: No History of sexually transmitted infection?: No Currently employed?: No Childcare worker?: No Do you have indoor plumbing?: Yes Do you have electricity?: Yes Attestation statement:: This patient has been screened for Hepatitis A risk factors. I have reviewed the patient's past medical history: Yes Medical History: Reports:: Congestive Heart Failure, Coronary Artery Disease, Home Oxygen, Hypertension, Myocardial Infarction, Palpitations, Peripheral Vascular Disease Denies:: Cancer, Diabetes Mellitus Type 1, Diabetes Mellitus Type 2, Internal Pacemaker, MRSA, Seizures Other Medical History: Reports: Arthritis, Fibromyalgia, Hoarseness Comment: Mild pulmonary hypertension on echocardiogram January 2017 Laterality Cases: Right: Carpal Tunnel Release, Lumpectomy Other Surgeries: Yes: Cardiac Catheterization, Colonoscopy, Hernia Repair, Hysterectomy-Total. No: Pacemaker Amputation: No Fractures: No - Social History Smoking Status: Current every day smoker Tobacco Type: cigarettes # Packs/Day (cigarettes): 1 Alcohol Intake: never Alcohol Intake Frequency:: a few times a month Occupational Status: disabled Housing: apartment Household Members: friend(s) Family Hx:: Adopted, Cancer, Coronary Artery Disease, Heart Attack, Hyperlipidemia, Hypertension ROS Obtained: Yes All systems reviewed & no additional complaints - Constitutional Constitutional: Reports fever(s), Reports lethargy - Eyes Eyes: Reports system reviewed and no additional complaints, except as docu - ENT Ears, Nose, Mouth, and Throat: Denies sore throat - Cardiovascular Cardiovascular: Denies chest pain, Denies chest pain at rest, Denies dyspnea - Respiratory Respiratory: Yes chest congestion, Yes cough, Yes dyspnea, No coughing up blood, Yes wheezing - Gastrointestinal Gastrointestingal: Reports: system reviewed and no additional complaints, except as docu - Genitourinary Female Genitourinary: Reports system reviewed and no additional complaints, except as docu - Musculoskeletal Musculoskeletal: Denies joint pain, Denies joint swelling - Integumentary/Breasts Skin/Breast: Denies rash, Denies skin pain - Neurologic Neurologic: Denies abnormal speech, Denies behavioral changes, Denies confusion, Denies dizziness - Hematologic/Lymphatic Henatologic/Lymphatic: Denies easy bleeding Physical Exam - General General appearance: alert, in distress (mild respiratory distress) - Eye Eye exam: Present: normal appearance, PERRL, EOMI - ENT ENT exam: Present: normal exam, normal oropharynx, mucous membranes moist, TM's normal bilaterally, normal external ear exam - Neck Neck exam: Present: normal inspection, full ROM, trachea midline. Absent: meningismus, lymphadenopathy - Respiratory Respiratory exam: Present: respiratory distress, wheezes, prolonged expiratory phase. Absent: normal lung sounds bilaterally - Expanded Respiratory Exam Location: Left: wheezes, rhonchi, decreased breath sounds, Right: wheezes, rhonchi, decreased breath sounds - Cardiovascular Cardiovascular exam: Present: normal rhythm, tachycardia - Abdominal Exam Abdominal exam: Present: soft, normal bowel sounds. Absent: distention, tenderness, guarding - Extremities Exam Extremities exam: Present: normal inspection, full ROM, normal capillary refill. Absent: calf tenderness - Neurological Exam Neurological exam: Present: alert, oriented X3 - Psychiatric Psychiatric exam: Present: normal affect, normal mood - Skin Skin exam: Present: warm, dry, intact, normal color
[2019-08-14 16:45] LABS: Basophils # 0.1 K/mm3 (0-0.2); Basophils % 0.6 % (0.1-2.0); Eosinophils % 0.1 % (0.1-12.0); Hematocrit 44.3 % (37.0-47.0); Hemoglobin 14.4 g/dL (12.2-16.2); Lymphocytes # 1.7 K/mm3 (0.7-4.5); Lymphocytes % 8.9 % (10-50); Mean Corpuscular HGB Conc 32.4 g/dL (31.8-35.4); Mean Corpuscular Volume 94.4 fl (81-99); Mean Platelet Volume 8.9 fl (7.4-10.4); Monocytes # 0.7 K/mm3 (0.1-1.0); Monocytes % 3.6 % (1.7-9.3); Neutrophils # 16.3 K/mm3 (1.8-7.8); Neutrophils % 86.8 % (37.0-80.0); Platelet Count 280 K/mm3 (142-424); Red Blood Count 4.69 M/mm3 (4.20-5.40); Red Cell Distribution Width 13.9 % (11.5-17.5); White Blood Count 18.8 K/mm3 (4.8-10.8)
[2019-08-14 17:00] LABS: Lymphocytes % 8 % (10-50); Monocytes % 6 % (2-9); Neutrophils % 84 % (42-76); Stomatocytes 1+; Total Cells Counted 100
[2019-08-14 17:09] LABS: Alanine Aminotransferase 25 U/L (12-78); Albumin Level 3.4 gm/dL (3.4-5.0); Albumin/Globulin Ratio 0.8 (1.1-1.8); Alkaline Phosphatase 88 U/L (46-116); Anion Gap 15.3 mEq/L (5-15); Aspartate Amino Transferase 26 U/L (15-37); Bilirubin,Total 0.5 mg/dL (0.2-1.0); Blood Urea Nitrogen 13 mg/dL (7-18); Calcium 9.1 mg/dL (8.5-10.1); Carbon Dioxide 25 mmol/L (21.0-32.0); Chloride 98 mmol/L (98-107); Globulin 4.3 gm/dl (1.3-3.2); Glucose 98 mg/dL (74-106); Sodium 134 mmol/L (136-145); Total Protein,Serum 7.7 gm/dL (6.4-8.2)
[2019-08-14 18:37] LABS: Microscopic, Urine URINE MICROSCOPIC (MICROSCOPIC)
[2019-08-14 18:39] LABS: Appearance,Urine CLEAR (Clear); Bilirubin,Urine Negative (Negative); Blood, Urine Negative (Negative); Color,Urine YELLOW (Yellow); Glucose,Urine (UA) Negative (Negative); Ketones,Urine Negative (Negative); Leukocyte Esterase,Urine Negative (Negative); Protein,Urine Negative (Negative); Specific Gravity, Urine <= 1.005 (1.005-1.030); Urobilinogen,Urine 0.2 EU/dl (0.2)
[2019-08-14 18:51] LABS: Bacteria,Urine Trace /lpf; WBC,Urine Occasional #/hpf (0-3)
--- NOTE | 2019-08-15 03:58 | Pharmacy Consult Notes ---
[facility] Pharmacy VTE Monitoring - Patient Demographics Admission date: 08/14/19 Report Date: 08/15/19 Time: 03:58 Allergies/Adverse Reactions: Patient Allergies clopidogrel [From PLAVIX] Allergy (Unknown, Verified 08/14/19 21:36) S-SKIN ERUPTIONS Height: 1.6 m Weight: 44.14 kg Patient Problems: Current Active Problems Pneumonia (Acute) COPD with exacerbation (Acute) SIRS (systemic inflammatory response syndrome) (Acute) - VTE Risk Labs: VTE Related Lab Results Hgb 14.4 g/dL (12.2-16.2) 08/14/19 16:29 Hct 44.3 % (37.0-47.0) 08/14/19 16:29 Plt Count 280 K/mm3 (142-424) 08/14/19 16:29 BUN 13 mg/dL (7-18) 08/14/19 16:29 Creatinine 0.77 mg/dL (0.55-1.02) 08/14/19 16:29 Estimated Creat Clear 39 mL/min (50-200) 08/14/19 16:29 Was VTE Risk Assessment Performed: Yes VTE Score: 6 VTE Risk Level: Moderate Risk Clinical Trial Participant: No - Prophylaxis VTE Prophylaxis Ordered?: Yes Types of VTE Prophylaxis: TEDS Knee High Location of Applied Device: Bilateral Lower Extremeties, Refused
[2019-08-15 06:18] LABS: Basophils % 0.1 % (0.1-2.0); Hematocrit 40.4 % (37.0-47.0); Lymphocytes # 1.1 K/mm3 (0.7-4.5); Lymphocytes % 5.8 % (10-50); Mean Corpuscular HGB Conc 31.4 g/dL (31.8-35.4); Mean Corpuscular Volume 98.4 fl (81-99); Mean Platelet Volume 8.8 fl (7.4-10.4); Monocytes # 0.4 K/mm3 (0.1-1.0); Monocytes % 1.9 % (1.7-9.3); Neutrophils # 17.2 K/mm3 (1.8-7.8); Neutrophils % 92.2 % (37.0-80.0); Platelet Count 227 K/mm3 (142-424); Red Blood Count 4.11 M/mm3 (4.20-5.40); Red Cell Distribution Width 13.9 % (11.5-17.5); White Blood Count 18.6 K/mm3 (4.8-10.8)
[2019-08-15 06:30] LABS: Anion Gap 12.9 mEq/L (5-15); Calcium 8.5 mg/dL (8.5-10.1)
[2019-08-15 07:01] LABS: Hemoglobin 12.7 g/dL (12.2-16.2)
--- NOTE | 2019-08-15 08:04 | History & Physical Report ---
*Admission Date: 08/14/19 <GilomreRegine Roland 08/15/19 08:29> *Chief complaint: Fever <Regine Gilmore 08/15/19 08:29> *History of present illness: is a 64-year-old female patient with a history of severe oxygen dependent COPD, tobacco use disorder, coronary artery disease, and previous pneumonia admissions who presented to [facility] emergency room with fever. She describes being sick for the last 3 to 4 days and unable to keep her fever controlled. She has had a nonproductive cough, pleuritic type chest pain and shortness of breath. She uses her DuoNeb treatments every 4 hours. She continues to smoke although she has not been able to smoke as much the last 3 to 4 days. She normally smokes a pack a day. With evaluation in the emergency room she was found to have a pneumonia, given DuoNeb treatment and IV steroids, and started on antibiotics. CTA of the chest was negative for PE. She was then admitted for further evaluation and treatment. This a.m. she states she is feeling slightly better. She did rest during the night. She ate all of her breakfast. She states this is the first she said to eat in 2 to 3 days. She continues with a nonproductive cough. She is still short of breath. <Regine Gilmore 08/15/19 08:29> [facility] History Medical History: Reports:: Cancer, Congestive Heart Failure, Coronary Artery Disease, Home Oxygen, Hypertension, Myocardial Infarction, Palpitations, Peripheral Artery Disease, Peripheral Vascular Disease Denies:: Diabetes Mellitus Type 1, Diabetes Mellitus Type 2, Internal Pacemaker, MRSA, Seizures <Regine Gilmore 08/15/19 08:29> *Have you ever received a pneumonia vaccine?: Yes <Regine Gilmore 08/15/19 08:29> *Have you received a flu vaccine this season?: No <Regine Gilmore 08/15/19 08:29> Other Medical History: Reports: Arthritis, Fibromyalgia, Hoarseness <Regine Gilmore 08/15/19 08:29> Laterality Cases: Right: Carpal Tunnel Release, Lumpectomy <Regine Gilmore 08/15/19 08:29> Other Surgeries: Yes: Cardiac Catheterization, Colonoscopy, Hernia Repair, Hysterectomy-Total, Other (BUNION SURGERY BILAT). No: Pacemaker <MandoRegine 08/15/19 08:29> Amputation: No <MandoRegine 08/15/19 08:29> Fractures: No <MandoRegine 08/15/19 08:29> - *Social History Educational Level: Attended College <Regine Gilmore 08/15/19 08:29> Smoking Status: Current every day smoker <GilmoreRegine 08/15/19 08:29> Tobacco Type: cigarettes <Regine Gilmore 08/15/19 08:29> # Packs/Day (cigarettes): 1 <MandoRegine 08/15/19 08:29> Alcohol Intake: never <GilmoreRegine 08/15/19 08:29> Alcohol Intake Frequency:: a few times a month <Gilmore,Regine - 08/15/19 0 8:29> *Occupational Status:: disabled <Gilmore,Regine 08/15/19 08:29> Housing: apartment <Regine Gilmore 08/15/19 08:29> Household Members: family, friend(s) <Regine Gilmore 08/15/19 08:29> *Travel in the last 8 weeks: None <GilmoreRegine 08/15/19 08:29> Family Hx:: Cancer, Coronary Artery Disease, no Diabetes <GilmoreRegine 08/15/19 08:29> Review of Systems - Constitutional Reports chills, Denies headache(s) <Gilmore,Regine 08/15/19 08:29> - ENT Reports dizziness, Reports nasal congestion, Reports post nasal drip, Reports sore throat, Denies ear pain <Gilmore,Regine 08/15/19 08:29> - *Cardiovascular Reports chest pain, Reports shortness of breath, Denies irregular heart rhythm, Denies fainting <Gilmore,Regine 08/15/19 08:29> - *Respiratory Reports chest congestion, Reports cough, Reports shortness of breath, Reports pain on inspiration, Denies coughing up blood <GilmoreRegine kellogg 08/15/19 08:29> - *Gastrointestinal Reports nausea, Denies abdominal pain, Denies change in stools, Denies coffee ground vomit, Denies constipation, Denies heartburn, Denies vomiting blood, Denies black, tarry stools, Denies vomiting <Regine Gilmore - 08/15/19 08:29> - *Musculoskeletal Comments: Legs do not function well. She sometimes uses a walker <Regine Gilmore - 08/15/19 08:29> - *Neurologic Reports dizziness, Denies abnormal speech, Denies behavioral changes, Denies confusion, Denies headache(s) <Regine Gilmore - 08/15/19 08:29> Meds Home Medications Medication Instructions Recorded Confirmed Type Albuterol Sulfate [Albuterol HFA 2 puff IH Q4HP PRN 01/21/18 08/15/19 History Inhaler] Ropinirole HCl 1 mg PO HS 04/09/18 08/14/19 History Amitriptyline HCl [Elavil 10mg 10 mg PO HS 08/14/19 08/15/19 History tablet] Aspirin [Aspirin 81mg chewable 81 mg PO HS 08/14/19 08/14/19 History tab] Umeclidinium Brm/Vilanterol Tr 1 puff IH HS 08/14/19 08/14/19 History [Anoro Ellipta 62.5-25 Mcg INH] Fluticasone Propionate [Flovent 1 puff IH BID 08/15/19 08/15/19 History Diskus] Tramadol HCl [Tramadol 50mg 50 mg PO BIDP PRN 08/15/19 08/15/19 History Tab] <Parth Calvin - 08/15/19 08:50> Allergies Allergy/AdvReac Type Severity Reaction Status Date / Time clopidogrel [From PLAVIX] Allergy Unknown S-SKIN Verified 08/14/19 21:36 ERUPTIONS <Parth Calvin - 08/15/19 08:50> Exam Vital signs and Labs for Last 24 Hours: Temp Pulse Resp BP Pulse Ox 97.8 F 86 18 98/68 L 2 L 08/15/19 07:16 08/15/19 07:16 08/15/19 07:16 08/15/19 07:16 08/15/19 08:00 Laboratory Results - last 24 hr 08/14/19 16:27: Influenza Type A Ag Negative, Influenza Type B Ag Negative 08/14/19 16:29: WBC 18.8 H, RBC 4.69, Hgb 14.4, Hct 44.3, MCV 94.4, MCH 30.6, MCHC 32.4, RDW 13.9, Plt Count 280, MPV 8.9, Neut % (Auto) 86.8 H, Lymph % (Auto) 8.9 L, [place] % (Auto) 3.6, Eos % (Auto) 0.1, Baso % (Auto) 0.6, Neut # (Auto) 16.3 H, Lymph # (Auto) 1.7, [place] # (Auto) 0.7, Eos # (Auto) 0.0, Baso # (Auto) 0.1, Total Counted 100, Neutrophils % (Manual) 84 H, Band Neutrophils % 1.0, Lymphocytes % (Manual) 8 L, Atypical Lymphs % 1.0, Monocytes % (Manual) 6, Platelet Estimate Normal, Stomatocytes 1+ 08/14/19 16:29: Sodium 134 L, Potassium 4.3, Chloride 98, Carbon Dioxide 25, Anion Gap 15.3 H, BUN 13, Creatinine 0.77, Estimated Creat Clear 39, Estimated GFR 76, Est GFR ( Amer) 92, Glucose 98, Calcium 9.1, Total Bilirubin 0.5, AST 26, ALT 25, Alkaline Phosphatase 88, Troponin I < 0.02, Total Protein 7.7, Albumin 3.4, Globulin 4.3 H, Albumin/Globulin Ratio 0.8 L 08/14/19 16:29: Lactate 1.4 08/14/19 18:00: Urine Color Yellow, Urine Appearance Clear, Urine pH 6.0, Ur Specific [place] <= 1.005, Urine Protein Negative, Urine Glucose (UA) Negative, Urine Ketones Negative, Urine Blood Negative, Urine Nitrate Negative, Urine Bilirubin Negative, Urine Urobilinogen 0.2, Ur Leukocyte Esterase Negative, Urine WBC Occasional, Ur Squamous Epith Cells 3-5, Urine Bacteria Trace 08/15/19 06:05: WBC 18.6 H, RBC 4.11 L, Hgb 12.7 D, Hct 40.4, MCV 98.4, MCH 30.9, MCHC 31.4 L, RDW 13.9, Plt Count 227, MPV 8.8, Neut % (Auto) 92.2 H, Lymph % (Auto) 5.8 L, [place] % (Auto) 1.9, Eos % (Auto) 0.0 L, Baso % (Auto) 0.1, Neut # (Auto) 17.2 H, Lymph # (Auto) 1.1, [place] # (Auto) 0.4, Eos # (Auto) 0.0, Baso # (Auto) 0.0, Total Counted 100, Neutrophils % (Manual) 87 H, Band Neutrophils % 6.0, Lymphocytes % (Manual) 7 L, Platelet Estimate Normal, RBC Morphology Normal 08/15/19 06:05: Sodium 140, Potassium 3.9, Chloride 107, Carbon Dioxide 24, Anion Gap 12.9, BUN 13, Creatinine 0.80, Estimated Creat Clear 40, Estimated GFR 72, Est GFR ( Amer) 88, Glucose 137 H D, Calcium 8.5 <MarixaParth - 08/15/19 08:50> Temp Pulse Resp BP Pulse Ox 97.8 F 86 18 98/68 L 96 08/15/19 07:16 08/15/19 07:16 08/15/19 07:16 08/15/19 07:16 08/15/19 07:16 Laboratory Results - last 24 hr 08/14/19 16:27: Influenza Type A Ag Negative, Influenza Type B Ag Negative 08/14/19 16:29: WBC 18.8 H, RBC 4.69, Hgb 14.4, Hct 44.3, MCV 94.4, MCH 30.6, MCHC 32.4, RDW 13.9, Plt Count 280, MPV 8.9, Neut % (Auto) 86.8 H, Lymph % (Auto) 8.9 L, [place] % (Auto) 3.6, Eos % (Auto) 0.1, Baso % (Auto) 0.6, Neut # (Auto) 16.3 H, Lymph # (Auto) 1.7, [place] # (Auto) 0.7, Eos # (Auto) 0.0, Baso # (Auto) 0.1, Total Counted 100, Neutrophils % (Manual) 84 H, Band Neutrophils % 1.0, Lymphocytes % (Manual) 8 L, Atypical Lymphs % 1.0, Monocytes % (Manual) 6, Platelet Estimate Normal, Stomatocytes 1+ 08/14/19 16:29: Sodium 134 L, Potassium 4.3, Chloride 98, Carbon Dioxide 25, Anion Gap 15.3 H, BUN 13, Creatinine 0.77, Estimated Creat Clear 39, Estimated GFR 76, Est GFR ( Amer) 92, Glucose 98, Calcium 9.1, Total Bilirubin 0.5, AST 26, ALT 25, Alkaline Phosphatase 88, Troponin I < 0.02, Total Protein 7.7, Albumin 3.4, Globulin 4.3 H, Albumin/Globulin Ratio 0.8 L 08/14/19 16:29: Lactate 1.4 08/14/19 18:00: Urine Color Yellow, Urine Appearance Clear, Urine pH 6.0, Ur Specific [place] <= 1.005, Urine Protein Negative, Urine Glucose (UA) Negative, Urine Ketones Negative, Urine Blood Negative, Urine Nitrate Negative, Urine Bilirubin Negative, Urine Urobilinogen 0.2, Ur Leukocyte Esterase Negative, Urine WBC Occasional, Ur Squamous Epith Cells 3-5, Urine Bacteria Trace 08/15/19 06:05: WBC 18.6 H, RBC 4.11 L, Hgb 12.7 D, Hct 40.4, MCV 98.4, MCH 30.9, MCHC 31.4 L, RDW 13.9, Plt Count 227, MPV 8.8, Neut % (Auto) 92.2 H, Lymph % (Auto) 5.8 L, [place] % (Auto) 1.9, Eos % (Auto) 0.0 L, Baso % (Auto) 0.1, Neut # (Auto) 17.2 H, Lymph # (Auto) 1.1, [place] # (Auto) 0.4, Eos # (Auto) 0.0, Baso # (Auto) 0.0 08/15/19 06:05: Sodium 140, Potassium 3.9, Chloride 107, Carbon Dioxide 24, Anion Gap 12.9, BUN 13, Creatinine 0.80, Estimated Creat Clear 40, Estimated GFR 72, Est GFR ( Amer) 88, Glucose 137 H D, Calcium 8.5 <Regine Gilmore - 08/15/19 08:29> I & O for Last 24 hours: Intake & Output 08/12/19 08/13/19 08/14/19 08/15/19 11:59 11:59 11:59 11:59 Intake Total 1401 / 1401 Output Total 700 / 700 Balance 701 / 701 Weight 97 lb 4 oz <Parth Calvin - 08/15/19 08:50> Intake & Output 08/12/19 08/13/19 08/14/19 08/15/19 11:59 11:59 11:59 11:59 Intake Total 1401 / 1401 Output Total 700 / 700 Balance 701 / 701 Weight 97 lb 5 oz <Regine Gilmore - 08/15/19 08:29> Radiology Reports for the Last 24 Hours: CXR of chest 08/14/2019 IMPRESSION: COPD with chronic changes with sclerotic lesion of the left 4th rib anteriorly. Consider chest CT for further evaluation CTA of the chest 08/14/2019 IMPRESSION: 1. No evidence of pulmonary embolus. 2. COPD with pulmonary fibrotic changes with pneumonia in the right lower lobe and left upper lobe. <MandoRegine 08/15/19 08:29> - Constitutional no acute distress, thin <GilmoreRegine 08/15/19 08:29> Comments: Sitting crosslegged in the bed looking at her computer. Has completed breakfast. Appears comfortable. <Gilmore,Regine 08/15/19 08:29> - *Routine HEENT Exam Head: Present: normocephalic, atraumatic <MandoRegine 08/15/19 08:29> Eye: Present: PERRL. Absent: conjunctival icterus, scleral injection, conjunctivae pink <MandoRegine 08/15/19 08:29> ENT: Present: mucous membranes moist, oropharynx clear <MandoRegine 08/15/19 08:29> - *Routine Neck Exam Present: supple. Absent: carotid bruit, lymphadenopathy, thyromegaly <Regine Gilmore 08/15/19 08:29> - *Routine Respiratory Exam Present: decreased breath sounds, CTA bilaterally (Anterior posteriorly). Absent: wheezes <Regine Gilmore 08/15/19 08:29> - *Routine Cardiovascular Exam Present: RRR <Regine Gilmore 08/15/19 08:29> - *Routine Abdominal Exam Present: soft, normoactive bowel sounds. Absent: tenderness <Regine Gilmore - 08/15/19 08:29> - *Routine Extremities Exam Absent: edema, calf tenderness <Regine Gilmore 08/15/19 08:29> - *Routine Neurological Exam Present: alert, oriented X3 <Regine Gilmore - 08/15/19 08:29> Assessment and Plan (1) COPD with exacerbation Current visit: Yes Status: Acute Category: Medical Code(s): J44.1 - Chronic obstructive pulmonary disease with (acute) exacerbation (2) Pneumonia Current visit: Yes Status: Acute Category: Medical Code(s): J18.9 - Pneumonia, unspecified organism (3) Leukocytosis Current visit: No Status: Acute Qualifiers: Leukocytosis type: unspecified Qualified Code(s): D72.829 - Elevated white blood cell count, unspecified Category: Medical Code(s): D72.829 - Elevated white blood cell count, unspecified (4) Tobacco use disorder Current visit: No Status: Chronic Category: Medical Code(s): F17.200 - Nicotine dependence, unspecified, uncomplicated <Parth Calvin - 08/15/19 08:50> (1) COPD with exacerbation Current visit: Yes Status: Acute Category: Medical Code(s): J44.1 - Chronic obstructive pulmonary disease with (acute) exacerbation (2) Pneumonia Current visit: Yes Status: Acute Category: Medical Code(s): J18.9 - Pneumonia, unspecified organism (3) Leukocytosis Current visit: No Status: Acute Qualifiers: Leukocytosis type: unspecified Qualified Code(s): D72.829 - Elevated white blood cell count, unspecified Category: Medical Code(s): D72.829 - Elevated white blood cell count, unspecified (4) Tobacco use disorder Current visit: No Status: Chronic Category: Medical Code(s): F17.200 - Nicotine dependence, unspecified, uncomplicated <Regine Gilmore - 08/15/19 08:34> - Assessment and plan all Dx Assessment and Plan for all problems:: Patient seen and examined. Concur with assessment and plan. <Parth Calvin - 08/15/19 08:50> We will continue with antibiotics, steroids, and will schedule duo nebs. Culture results are pending. She is receiving IV fluids at 100/h. Smoking cessation discussed with patient and she is not ready to quit. <Regine Gilmore - 08/15/19 08:34>
[2019-08-15 08:26] LABS: Lymphocytes % 7 % (10-50); Neutrophils % 87 % (42-76); Total Cells Counted 100
[2019-08-15 08:27] LABS: RBC Morphology Normal
--- NOTE | 2019-08-15 08:58 | Electrocardiograph Report ---
APPROVED REPORT Exam: Resting ECG HR:115 bpm ECG Measurements Heart Rate 115 AXES QRSd 92 QRS 267 QT 468 T77 QTc 647 <Conclusion> Sinus Tachycardia Right superior axis deviation,Consider SEAMUS Incomplete right bundle branch block Abnormal ECG Electronically signed by : Pool Burgess, 08/15/2019 08:58:10
[2019-08-16 06:40] LABS: Anion Gap 13.9 mEq/L (5-15); Calcium 8.7 mg/dL (8.5-10.1); Hematocrit 36.3 % (37.0-47.0); Mean Corpuscular HGB Conc 30.3 g/dL (31.8-35.4); Mean Corpuscular Volume 98.9 fl (81-99); Mean Platelet Volume 8.4 fl (7.4-10.4); Platelet Count 281 K/mm3 (142-424); Red Blood Count 3.67 M/mm3 (4.20-5.40); White Blood Count 20.4 K/mm3 (4.8-10.8)
[2019-08-16 06:41] LABS: Lymphocytes # 0.9 K/mm3 (0.7-4.5); Lymphocytes % 4.9 % (10-50); Monocytes # 0.7 K/mm3 (0.1-1.0); Monocytes % 3.4 % (1.7-9.3); Neutrophils # 18.7 K/mm3 (1.8-7.8); Neutrophils % 91.7 % (37.0-80.0)
--- NOTE | 2019-08-16 08:23 | Progress Note ---
<Essence Bartholomew - Last Filed: 08/16/19 08:20> Internal Medicine - PN: Subj *Date: 08/16/19 *Time: 08:20 Interval history: Patient states she is still not feeling well today. She has some pain in the mid left side of her chest and continues to wheeze and be short of breath. She states she is having some swelling in her hands and feet and has gained some weight. She is also worried about getting some of her medications. She has not slept in a day. Exam Vital signs and Labs for Last 24 Hours: Temp Pulse Resp BP Pulse Ox 97.3 F L 109 H 20 126/72 96 08/16/19 08:00 08/16/19 08:00 08/16/19 08:00 08/16/19 08:00 08/16/19 08:00 Laboratory Results - last 24 hr 08/15/19 06:05: Total Counted 100, Neutrophils % (Manual) 87 H, Band Neutrophils % 6.0, Lymphocytes % (Manual) 7 L, Platelet Estimate Normal, RBC Morphology Normal 08/15/19 06:05: Mycoplasma pneumon IgM Non-reactive 08/16/19 06:15: WBC 20.4 H*, RBC 3.67 L, Hgb 11.0 L, Hct 36.3 L, MCV 98.9, MCH 29.9, MCHC 30.3 L, RDW 15.0, Plt Count 281, MPV 8.4, Neut % (Auto) 91.7 H, Lymph % (Auto) 4.9 L, [place] % (Auto) 3.4, Eos % (Auto) 0.0 L, Baso % (Auto) 0.0 L, Neut # (Auto) 18.7 H, Lymph # (Auto) 0.9, [place] # (Auto) 0.7, Eos # (Auto) 0.0, Baso # (Auto) 0.0 08/16/19 06:15: Sodium 141, Potassium 3.9, Chloride 107, Carbon Dioxide 24, Anion Gap 13.9, BUN 12, Creatinine 0.64, Estimated Creat Clear 42, Estimated GFR 94, Est GFR ( Amer) 113 D, Glucose 113 H, Calcium 8.7 I & O for Last 24 hours: Intake & Output 11/04/19 11/05/19 11/06/19 11/07/19 11:59 11:59 11:59 11:59 Intake Total 1401 / 1401 3619 / 3619 Output Total 700 / 700 2049 / 205 Balance 701 / 701 1569 / 1569 Weight 97 lb 4.005 oz 101 lb 4 oz Microbiology Reports for the Last 24 Hours: Microbiology 08/15/19 06:09 Sputum - Expectorated Sputum Gram Stain - Final 08/15/19 06:09 Sputum - Expectorated Sputum Sputum Culture - Preliminary - Constitutional no acute distress Comments: anxious - *Routine Respiratory Exam Present: rhonchi, wheezes. Absent: rales - *Routine Cardiovascular Exam Present: RRR - *Routine Abdominal Exam Present: soft, normoactive bowel sounds. Absent: tenderness - *Routine Extremities Exam Absent: cyanosis, clubbing, edema - *Routine Skin Exam Present: warm. Absent: rash - *Routine Neurological Exam Present: alert, oriented X3 Assessment and Plan (1) COPD with exacerbation Current visit: Yes Status: Acute Category: Medical Code(s): J44.1 - Chronic obstructive pulmonary disease with (acute) exacerbation (2) Pneumonia Current visit: Yes Status: Acute Category: Medical Code(s): J18.9 - Pneumonia, unspecified organism (3) Leukocytosis Current visit: No Status: Acute Qualifiers: Leukocytosis type: unspecified Qualified Code(s): D72.829 - Elevated white blood cell count, unspecified Category: Medical Code(s): D72.829 - Elevated white blood cell count, unspecified (4) Tobacco use disorder Current visit: No Status: Chronic Category: Medical Code(s): F17.200 - Nicotine dependence, unspecified, uncomplicated - Assessment and plan all Dx Assessment and Plan for all problems:: We will reorder patient's inhalers and get a repeat chest x-ray today. Will await sputum culture results. <Parth Calvin - Last Filed: 08/16/19 13:22> Internal Medicine - PN: Subj *Date: 08/16/19 *Time: 13:20 Exam Vital signs and Labs for Last 24 Hours: Temp Pulse Resp BP Pulse Ox 98.1 F 102 H 18 136/85 96 08/16/19 11:05 08/16/19 11:05 08/16/19 11:05 08/16/19 11:05 08/16/19 11:05 Laboratory Results - last 24 hr 08/16/19 06:15: WBC 20.4 H*, RBC 3.67 L, Hgb 11.0 L, Hct 36.3 L, MCV 98.9, MCH 29.9, MCHC 30.3 L, RDW 15.0, Plt Count 281, MPV 8.4, Neut % (Auto) 91.7 H, Lymph % (Auto) 4.9 L, [place] % (Auto) 3.4, Eos % (Auto) 0.0 L, Baso % (Auto) 0.0 L, Neut # (Auto) 18.7 H, Lymph # (Auto) 0.9, [place] # (Auto) 0.7, Eos # (Auto) 0.0, Baso # (Auto) 0.0, Total Counted 100, Neutrophils % (Manual) 95 H, Lymphocytes % (Manual) 4 L, Monocytes % (Manual) 1 L, Platelet Estimate Normal, RBC Morphology Normal 08/16/19 06:15: Sodium 141, Potassium 3.9, Chloride 107, Carbon Dioxide 24, Anion Gap 13.9, BUN 12, Creatinine 0.64, Estimated Creat Clear 42, Estimated GFR 94, Est GFR ( Amer) 113 D, Glucose 113 H, Calcium 8.7 I & O for Last 24 hours: Intake & Output 08/14/19 08/15/19 08/16/19 08/17/19 11:59 11:59 11:59 11:59 Intake Total 1401 / 1401 3619 / 3619 Output Total 700 / 700 0 / 2050 Balance 701 / 701 1569 / 1569 Weight 97 lb 4.005 oz 101 lb 4 oz Microbiology Reports for the Last 24 Hours: Microbiology 08/15/19 06:09 Sputum - Expectorated Sputum Gram Stain - Final 08/15/19 06:09 Sputum - Expectorated Sputum Sputum Culture - Preliminary Assessment and Plan (1) COPD with exacerbation Current visit: Yes Status: Acute Category: Medical Code(s): J44.1 - Chronic obstructive pulmonary disease with (acute) exacerbation (2) Pneumonia Current visit: Yes Status: Acute Category: Medical Code(s): J18.9 - Pne umonia, unspecified organism (3) Leukocytosis Current visit: No Status: Acute Qualifiers: Leukocytosis type: unspecified Qualified Code(s): D72.829 - Elevated white blood cell count, unspecified Category: Medical Code(s): D72.829 - Elevated white blood cell count, unspecified (4) Tobacco use disorder Current visit: No Status: Chronic Category: Medical Code(s): F17.200 - Nicotine dependence, unspecified, uncomplicated - Assessment and plan all Dx Assessment and Plan for all problems:: Patient seen and examined. Afebrile; clinically stable but WBC increased (steroids?). Awaiting sputum C&S. Repeat CXR.
[2019-08-16 09:01] LABS: Lymphocytes % 4 % (10-50); Monocytes % 1 % (2-9); Neutrophils % 95 % (42-76); Total Cells Counted 100
[2019-08-16 09:02] LABS: RBC Morphology Normal
[2019-08-17 06:44] LABS: Basophils % 0.1 % (0.1-2.0); Hematocrit 39.3 % (37.0-47.0); Hemoglobin 11.8 g/dL (12.2-16.2); Lymphocytes # 0.6 K/mm3 (0.7-4.5); Lymphocytes % 4.3 % (10-50); Mean Corpuscular Volume 100.3 fl (81-99); Mean Platelet Volume 8.6 fl (7.4-10.4); Monocytes # 0.2 K/mm3 (0.1-1.0); Monocytes % 1.7 % (1.7-9.3); Neutrophils # 12.7 K/mm3 (1.8-7.8); Neutrophils % 93.9 % (37.0-80.0); Platelet Count 277 K/mm3 (142-424); Red Blood Count 3.92 M/mm3 (4.20-5.40); Red Cell Distribution Width 14.2 % (11.5-17.5); White Blood Count 13.5 K/mm3 (4.8-10.8)
[2019-08-17 08:08] LABS: Lymphocytes % 10 % (10-50); Monocytes % 3 % (2-9); Neutrophils % 87 % (42-76); Total Cells Counted 100
[2019-08-17 08:09] LABS: Anisocytosis 1+; Macrocytosis 1+; Stomatocytes 1+
--- NOTE | 2019-08-17 08:15 | Progress Note ---
Internal Medicine - PN: Subj *Date: 08/17/19 *Time: 08:10 Interval history: States she feels very nervous and not sleeping. Nurses note she has had some family issues that have been upsetting to her. She is still dyspneic with exertion. Less cough. No fever. Appetite OK. Exam Vital signs and Labs for Last 24 Hours: Temp Pulse Resp BP Pulse Ox 98.5 F 96 H 20 129/87 98 08/17/19 07:22 08/17/19 07:22 08/17/19 07:22 08/17/19 07:22 08/17/19 07:22 Laboratory Results - last 24 hr 08/16/19 06:15: Total Counted 100, Neutrophils % (Manual) 95 H, Lymphocytes % (Manual) 4 L, Monocytes % (Manual) 1 L, Platelet Estimate Normal, RBC Morphology Normal 08/17/19 06:08: WBC 13.5 H D, RBC 3.92 L, Hgb 11.8 L, Hct 39.3, MCV 100.3 H, MCH 30.1, MCHC 30.0 L, RDW 14.2, Plt Count 277, MPV 8.6, Neut % (Auto) 93.9 H, Lymph % (Auto) 4.3 L, [place] % (Auto) 1.7, Eos % (Auto) 0.0 L, Baso % (Auto) 0.1, Neut # (Auto) 12.7 H, Lymph # (Auto) 0.6 L, [place] # (Auto) 0.2, Eos # (Auto) 0.0, Baso # (Auto) 0.0, Total Counted 100, Neutrophils % (Manual) 87 H, Lymphocytes % (Manual) 10, Monocytes % (Manual) 3, Platelet Estimate Normal, Anisocytosis 1+, Macrocytosis 1+, Stomatocytes 1+ I & O for Last 24 hours: Intake & Output 08/14/19 08/15/19 08/16/19 08/17/19 11:59 11:59 11:59 11:59 Intake Total 1401 / 1401 3619 / 3619 3346 / 3346 Output Total 700 / 700 2050 / 2050 2550 / 2550 Balance 701 / 701 1569 / 1569 796 / 796 Weight 97 lb 4.005 oz 101 lb 4 oz 98 lb 2 oz Microbiology Reports for the Last 24 Hours: Microbiology 08/14/19 16:29 Blood Blood Culture - Preliminary NO GROWTH AFTER 48 HOURS 08/14/19 16:29 Blood Blood Culture - Preliminary NO GROWTH AFTER 48 HOURS 08/15/19 06:09 Sputum - Expectorated Sputum Gram Stain - Final 08/15/19 06:09 Sputum - Expectorated Sputum Sputum Culture - Preliminary Narrative: Seems anxious. CHest with diminished BS with bilateral rhonchi and faint wheezes. Heart regular. Extremities with no edema. Assessment and Plan (1) COPD with exacerbation Current visit: Yes Status: Acute Category: Medical Code(s): J44.1 - Chronic obstructive pulmonary disease with (acute) exacerbation (2) Pneumonia Current visit: Yes Status: Acute Category: Medical Code(s): J18.9 - Pneumonia, unspecified organism (3) Leukocytosis Current visit: No Status: Acute Qualifiers: Leukocytosis type: unspecified Qualified Code(s): D72.829 - Elevated white blood cell count, unspecified Category: Medical Code(s): D72.829 - Elevated white blood cell count, unspecified (4) Tobacco use disorder Current visit: No Status: Chronic Category: Medical Code(s): F17.200 - Nicotine dependence, unspecified, uncomplicated (5) Anxiety Current visit: Yes Status: Acute Category: Medical Code(s): F41.9 - Anxiety disorder, unspecified (6) O2 dependent Current visit: Yes Status: Acute Category: Medical Code(s): Z99.81 - Dependence on supplemental oxygen - Assessment and plan all Dx Assessment and Plan for all problems:: [place] [id number]. SHe has remained afebrile since admission. Blood cultures negative. SHe is quite anxious which may be side effect of steroids. Will wean to oral steroids and d/c IVF. Possible discharge home soon.
[2019-08-17 17:49] LABS: ABG Base Excess -21.5 mmol/L (-2.4-2.3); ABG HCO3 11.8 mmhg (22.0-26.0); ABG Oxygen Saturation 87 % (90-100); ABG PO2 81.1 mmhg (80-100); ABG TCO2 13.9 mmhg (23-27)
[2019-08-17 17:51] LABS: Oxygen NC 2L %
[2019-08-17 17:52] LABS: Allen's Test Non Applicable
[2019-08-17 17:53] LABS: ABG PCO2 65.7 mmhg (35.0-45.0); ABG PH 6.87 mmol/L (7.35-7.45)
[2019-08-17 19:35] LABS: Basophils # 0.1 K/mm3 (0-0.2); Basophils % 0.4 % (0.1-2.0); Eosinophils % 0.1 % (0.1-12.0); Hematocrit 35.3 % (37.0-47.0); Lymphocytes # 0.8 K/mm3 (0.7-4.5); Lymphocytes % 6.9 % (10-50); Mean Corpuscular HGB Conc 29.9 g/dL (31.8-35.4); Mean Corpuscular Volume 103.7 fl (81-99); Mean Platelet Volume 9.1 fl (7.4-10.4); Monocytes # 0.5 K/mm3 (0.1-1.0); Monocytes % 4.3 % (1.7-9.3); Neutrophils # 10.2 K/mm3 (1.8-7.8); Neutrophils % 88.2 % (37.0-80.0); Platelet Count 234 K/mm3 (142-424); Red Cell Distribution Width 14.1 % (11.5-17.5); White Blood Count 11.6 K/mm3 (4.8-10.8)
[2019-08-17 19:37] LABS: Hemoglobin 10.5 g/dL (12.2-16.2)
[2019-08-17 19:52] LABS: Hypochromasia 1+; Lymphocytes % 8 % (10-50); Macrocytosis 1+; Monocytes % 3 % (2-9); Neutrophils % 89 % (42-76); Total Cells Counted 100
[2019-08-17 19:53] LABS: Anion Gap 25.6 mEq/L (5-15); Anisocytosis 1+
[2019-08-17 20:00] LABS: ABG Base Excess -15.9 mmol/L (-2.4-2.3); ABG HCO3 15.1 mmhg (22.0-26.0); ABG Oxygen Saturation 41 % (90-100)
[2019-08-17 20:03] LABS: Allen's Test Non Applicable; Oxygen 40% %; PEEP 5; Tidal Volume 500
[2019-08-17 20:04] LABS: ABG PCO2 60.7 mmhg (35.0-45.0); ABG PH 7.01 mmol/L (7.35-7.45)
[2019-08-17 20:05] LABS: ABG PO2 29.9 mmhg (80-100)
[2019-08-17 20:08] LABS: Calcium 7.8 mg/dL (8.5-10.1)
[2019-08-17 20:33] LABS: ABG Base Excess -12.4 mmol/L (-2.4-2.3); ABG Oxygen Saturation 96 % (90-100); ABG PO2 100.2 mmhg (80-100); ABG TCO2 18.6 mmhg (23-27)
[2019-08-17 20:35] LABS: Allen's Test Acceptable; Oxygen 40% %; PEEP 5; Tidal Volume 500
[2019-08-17 20:36] LABS: ABG PCO2 53.9 mmhg (35.0-45.0); ABG PH 7.12 mmol/L (7.35-7.45)
[2019-08-17 21:21] LABS: Microscopic, Urine URINE MICROSCOPIC (MICROSCOPIC)
[2019-08-17 21:28] LABS: Appearance,Urine CLOUDY (Clear); Bilirubin,Urine Negative (Negative); Blood, Urine 3+ (Negative); Color,Urine YELLOW (Yellow); Glucose,Urine (UA) Negative (Negative); Ketones,Urine Negative (Negative); Leukocyte Esterase,Urine Negative (Negative); PH,Urine 5.5 (5.0-8.5); Protein,Urine 3+ (Negative); Specific Gravity, Urine >= 1.030 (1.005-1.030)
[2019-08-17 21:29] LABS: Amorphous Sediment,Urine 1+ /lpf; Mucus,Urine 1+ /lpf; WBC,Urine Occasional #/hpf (0-3)
[2019-08-18 06:13] LABS: Basophils # 0.1 K/mm3 (0-0.2); Basophils % 0.4 % (0.1-2.0); Hemoglobin 10.7 g/dL (12.2-16.2); Lymphocytes # 1.5 K/mm3 (0.7-4.5); Lymphocytes % 12.4 % (10-50); Mean Corpuscular HGB Conc 30.6 g/dL (31.8-35.4); Mean Corpuscular Volume 101.8 fl (81-99); Mean Platelet Volume 8.6 fl (7.4-10.4); Monocytes # 0.6 K/mm3 (0.1-1.0); Monocytes % 5.4 % (1.7-9.3); Neutrophils # 9.8 K/mm3 (1.8-7.8); Neutrophils % 81.8 % (37.0-80.0); Platelet Count 229 K/mm3 (142-424); Red Blood Count 3.44 M/mm3 (4.20-5.40); Red Cell Distribution Width 14.4 % (11.5-17.5)
[2019-08-18 06:22] LABS: Anion Gap 17.2 mEq/L (5-15); Calcium 7.7 mg/dL (8.5-10.1)
[2019-08-18 06:59] LABS: ABG Base Excess -9.9 mmol/L (-2.4-2.3); ABG HCO3 17.3 mmhg (22.0-26.0); ABG Oxygen Saturation 95 % (90-100); ABG PCO2 40.1 mmhg (35.0-45.0); ABG PH 7.25 mmol/L (7.35-7.45); ABG TCO2 18.5 mmhg (23-27)
[2019-08-18 07:02] LABS: Oxygen 28% %; PEEP 5; Tidal Volume 500
[2019-08-18 07:03] LABS: Allen's Test Acceptable
--- NOTE | 2019-08-18 08:56 | Progress Note ---
Internal Medicine - PN: Subj *Date: 08/18/19 *Time: 08:53 Interval history: The patient went into respiratory failure last night and required intubation at 6:24 PM. See the blood gas values. She is stable at this time on the ventilator. She is sedated but can be responsive. Exam Vital signs and Labs for Last 24 Hours: Temp Pulse Resp BP Pulse Ox 97.3 F L 108 H 17 116/72 100 08/18/19 07:00 08/18/19 07:00 08/18/19 07:00 08/18/19 07:00 08/18/19 07:00 Laboratory Results - last 24 hr 08/17/19 16:52: POC Glucose 178 H 08/17/19 17:46: Specimen Source R brachial, O2 % Nc 2l, ABG pH 6.87 L*, ABG pCO2 65.7 H, ABG pO2 81.1, ABG HCO3 11.8 L, ABG Total CO2 13.9 L, ABG O2 Saturation 87 L*, ABG Base Excess -21.5 L, Sam Test Non applicable 08/17/19 19:20: WBC 11.6 H, RBC 3.40 L, Hgb 10.5 L D, Hct 35.3 L, MCV 103.7 H, MCH 31.0, MCHC 29.9 L, RDW 14.1, Plt Count 234, MPV 9.1, Neut % (Auto) 88.2 H, Lymph % (Auto) 6.9 L, [place] % (Auto) 4.3, Eos % (Auto) 0.1, Baso % (Auto) 0.4, Neut # (Auto) 10.2 H, Lymph # (Auto) 0.8, [place] # (Auto) 0.5, Eos # (Auto) 0.0, Baso # (Auto) 0.1, Total Counted 100, Neutrophils % (Manual) 89 H, Lymphocytes % (Manual) 8 L, Monocytes % (Manual) 3, Platelet Estimate Normal, Hypochromasia 1+, Anisocytosis 1+, Macrocytosis 1+ 08/17/19 19:20: Sodium 148 H, Potassium 5.6 H D, Chloride 111 H, Carbon Dioxide 17 L D, Anion Gap 25.6 H, BUN 23 H D, Creatinine 1.17 H D, Estimated Creat Clear 35, Estimated GFR 47 L, Est GFR ( Amer) 57 L D, Glucose 113 H, Calcium 7.8 L D 08/17/19 19:20: Lactate 9.0 H 08/17/19 19:20: Troponin I 1.12 H 08/17/19 19:57: Specimen Source Left brachial, O2 % 40%, ABG pH 7.01 L*, ABG pCO2 60.7 H, ABG pO2 29.9 L, ABG HCO3 15.1 L, ABG Total CO2 17.0 L, ABG O2 Saturation 41 L*, ABG Base Excess -15.9 L, Sam Test Non applicable, Vent Rate 16, Tidal Volume 500, PEEP 5 08/17/19 20:30: Specimen Source Right radial, O2 % 40%, ABG pH 7.12 L*, ABG pCO2 53.9 H, ABG pO2 100.2 H, ABG HCO3 17.0 L, ABG Total CO2 18.6 L, ABG O2 Sat uration 96, ABG Base Excess -12.4 L, Sam Test Acceptable, Vent Rate 16, Tidal Volume 500, PEEP 5 08/17/19 21:12: Urine Color Yellow, Urine Appearance Cloudy, Urine pH 5.5, Ur Specific [place] >= 1.030, Urine Protein 3+, Urine Glucose (UA) Negative, Urine Ketones Negative, Urine Blood 3+, Urine Nitrate Negative, Urine Bilirubin Negative, Urine Urobilinogen 1.0, Ur Leukocyte Esterase Negative, Urine RBC 3-5, Urine WBC Occasional, Ur Squamous Epith Cells 10-20, Amorphous Sediment 1+, Hyaline Casts 3-5, Urine Mucus 1+ 08/17/19 23:35: Lactate 5.3 H 08/18/19 01:40: Lactate 2.2 H 08/18/19 05:35: WBC 12.0 H, RBC 3.44 L, Hgb 10.7 L, Hct 35.0 L, MCV 101.8 H, MCH 31.2, MCHC 30.6 L, RDW 14.4, Plt Count 229, MPV 8.6, Neut % (Auto) 81.8 H, Lymph % (Auto) 12.4, [place] % (Auto) 5.4, Eos % (Auto) 0.0 L, Baso % (Auto) 0.4, Neut # (Auto) 9.8 H, Lymph # (Auto) 1.5, [place] # (Auto) 0.6, Eos # (Auto) 0.0, Baso # (Auto) 0.1 08/18/19 05:35: Sodium 146 H, Potassium 4.2 D, Chloride 108 H, Carbon Dioxide 25 D, Anion Gap 17.2 H, BUN 30 H D, Creatinine 1.16 H, Estimated Creat Clear 42, Estimated GFR 47 L, Est GFR ( Amer) 57 L, Glucose 91, Calcium 7.7 L 08/18/19 06:00: Specimen Source Right radial, O2 % 28%, ABG pH 7.25 L, ABG pCO2 40.1, ABG pO2 89.0, ABG HCO3 17.3 L, ABG Total CO2 18.5 L, ABG O2 Saturation 95, ABG Base Excess -9.9 L, Sam Test Acceptable, Vent Rate 16, Tidal Volume 500, PEEP 5 I & O for Last 24 hours: Intake & Output 08/15/19 08/16/19 08/17/19 08/18/19 11:59 11:59 11:59 11:59 Intake Total 1401 / 1401 3619 / 3619 3346 / 3346 2209 / 2209 Output Total 700 / 700 2050 / 2050 2750 / 2750 937 / 937 Balance 701 / 701 1569 / 1569 596 / 596 1272 / 1272 Weight 97 lb 4.005 oz 101 lb 4 oz 98 lb 2 oz 119 lb Microbiology Reports for the Last 24 Hours: Microbiology 08/15/19 06:09 Sputum - Expectorated Sputum Gram Stain - Final 08/15/19 06:09 Sputum - Expectorated Sputum Sputum Culture - Final Normal Respiratory Tracee - Constitutional no acute distress (Intubated and on ventilator.) - *Routine HEENT Exam Head: Present: normocephalic ENT: Present: mucous membranes moist - *Routine Neck Exam Present: supple - Routine Chest/Breast/Axilla Exam Comments: Normal configuration. - *Routine Respiratory Exam Present: patient mechanically ventilated (Good air movement bilaterally. Chest x-ray is reviewed and shows COPD) - *Routine Cardiovascular Exam Present: RRR (EKG is reviewed.) - *Routine Abdominal Exam Present: soft. Absent: tenderness - *Routine Extremities Exam Present: DAVE stockings (No edema) - *Routine Neurological Exam Absent: alert (Sedated. No focal deficits apparent.) Assessment and Plan (1) COPD with exacerbation Current visit: Yes Status: Acute Category: Medical Code(s): J44.1 - Chronic obstructive pulmonary disease with (acute) exacerbation (2) Pneumonia Current visit: Yes Status: Acute Category: Medical Code(s): J18.9 - Pneumonia, unspecified organism (3) Acute respiratory failure Current visit: Yes Status: Acute Category: Medical Code(s): J96.00 - Acute respiratory failure, unspecified whether with hypoxia or hypercapnia (4) Leukocytosis Current visit: No Status: Acute Qualifiers: Leukocytosis type: unspecified Qualified Code(s): D72.829 - Elevated white blood cell count, unspecified Category: Medical Code(s): D72.829 - Elevated white blood cell count, unspecified (5) Tobacco use disorder Current visit: No Status: Chronic Category: Medical Code(s): F17.200 - Nicotine dependence, unspecified, uncomplicated (6) Anxiety Current visit: Yes Status: Acute Category: Medical Code(s): F41.9 - Anxiety disorder, unspecified (7) O2 dependent Current visit: Yes Status: Acute Category: Medical Code(s): Z99.81 - Dependence on supplemental oxygen
--- NOTE | 2019-08-18 18:31 | Electrocardiograph Report ---
APPROVED REPORT Exam: Resting ECG HR:123 bpm ECG Measurements Heart Rate 123 AXES IL 136 P 82 QRSd 82 QRS 260 QT 282 T78 QTc 403 <Conclusion> Sinus tachycardia with premature supraventricular complexes Indeterminate axis Low voltage QRS Incomplete RBBB Abnormal ECG Electronically signed by : Pool Burgess, 08/18/2019 18:30:17
[2019-08-19 06:32] LABS: ABG Base Excess -5.7 mmol/L (-2.4-2.3); ABG Oxygen Saturation 95 % (90-100); ABG PCO2 37.2 mmhg (35.0-45.0); ABG PH 7.35 mmol/L (7.35-7.45); ABG PO2 78.2 mmhg (80-100); ABG TCO2 21.1 mmhg (23-27)
[2019-08-19 06:33] LABS: Oxygen 28 %; Tidal Volume 500
[2019-08-19 06:34] LABS: Allen's Test ACCEPTABLE; PEEP 5
[2019-08-19 06:39] LABS: Anion Gap 15.3 mEq/L (5-15); Basophils % 0.2 % (0.1-2.0); Calcium 7.5 mg/dL (8.5-10.1); Eosinophils % 0.2 % (0.1-12.0); Hematocrit 34.9 % (37.0-47.0); Hemoglobin 11.1 g/dL (12.2-16.2); Lymphocytes # 0.8 K/mm3 (0.7-4.5); Lymphocytes % 8.1 % (10-50); Mean Corpuscular HGB Conc 31.7 g/dL (31.8-35.4); Mean Corpuscular Volume 96.5 fl (81-99); Mean Platelet Volume 9.6 fl (7.4-10.4); Monocytes # 0.2 K/mm3 (0.1-1.0); Monocytes % 1.9 % (1.7-9.3); Neutrophils # 8.4 K/mm3 (1.8-7.8); Neutrophils % 89.7 % (37.0-80.0); Platelet Count 264 K/mm3 (142-424); Red Blood Count 3.62 M/mm3 (4.20-5.40); Red Cell Distribution Width 14.1 % (11.5-17.5); White Blood Count 9.4 K/mm3 (4.8-10.8)
[2019-08-19 07:06] LABS: Lymphocytes % 4 % (10-50); Macrocytosis 1+; Monocytes % 1 % (2-9); Neutrophils % 91 % (42-76); Rouleaux 1+; Total Cells Counted 100
--- NOTE | 2019-08-19 08:31 | Progress Note ---
Internal Medicine - PN: Nguyen *Date: 08/19/19 *Time: 08:28 Interval history: She did remain stable through the night on the ventilator. She remains comfortable. Blood gases have improved. Heart rhythm is fairly stable. Exam Vital signs and Labs for Last 24 Hours: Temp Pulse Resp BP Pulse Ox 97.6 F 91 H 17 101/60 L 100 08/19/19 07:00 08/19/19 07:00 08/19/19 07:00 08/19/19 07:00 08/19/19 07:00 Laboratory Results - last 24 hr 08/18/19 05:35: Sodium 146 H, Potassium 4.2 D, Chloride 108 H, Carbon Dioxide 25 D, Anion Gap 17.2 H, BUN 30 H D, Creatinine 1.16 H, Estimated Creat Clear 42, Estimated GFR 47 L, Est GFR ( Amer) 57 L, Glucose 91, Calcium 7.7 L 08/18/19 09:46: Total Creatine Kinase 519 H*, CK-MB (CK-2) 14.0 H*, CK-MB (CK-2) Rel Index 2.7, Troponin I 0.91 H 08/19/19 05:55: WBC 9.4, RBC 3.62 L, Hgb 11.1 L, Hct 34.9 L, MCV 96.5, MCH 30.6, MCHC 31.7 L, RDW 14.1, Plt Count 264, MPV 9.6, Neut % (Auto) 89.7 H, Lymph % (Auto) 8.1 L, [place] % (Auto) 1.9, Eos % (Auto) 0.2, Baso % (Auto) 0.2, Neut # (Auto) 8.4 H, Lymph # (Auto) 0.8, [place] # (Auto) 0.2, Eos # (Auto) 0.0, Baso # (Auto) 0.0, Total Counted 100, Neutrophils % (Manual) 91 H, Band Neutrophils % 4.0, Lymphocytes % (Manual) 4 L, Monocytes % (Manual) 1 L, Platelet Estimate Normal, Macrocytosis 1+, [place] 1+ 08/19/19 05:55: Sodium 145, Potassium 4.3, Chloride 110 H, Carbon Dioxide 24, Anion Gap 15.3 H, BUN 26 H, Creatinine 0.83 D, Estimated Creat Clear 49, Estimated GFR 69, Est GFR ( Amer) 84 D, Glucose 85, Calcium 7.5 L 08/19/19 06:00: Specimen Source Left radial, O2 % 28, ABG pH 7.35, ABG pCO2 37.2, ABG pO2 78.2 L, ABG HCO3 20.0 L, ABG Total CO2 21.1 L, ABG O2 Saturation 95, ABG Base Excess -5.7 L, Sam Test Acceptable, Vent Rate 16, Tidal Volume 500, PEEP 5 Laboratory Tests 08/19/19 08/19/19 08/19/19 05:55 05:55 06:00 WBC 9.4 Hgb 11.1 L Hct 34.9 L ABG pH 7.35 ABG pCO2 37.2 ABG pO2 78.2 L ABG HCO3 20.0 L ABG Total CO2 21.1 L ABG O2 Saturation 95 Sodium 145 Potassium 4.3 Anion Gap 15.3 H BUN 26 H Creatinine 0.83 D I & O for Last 24 hours: Intake & Output 08/16/19 08/17/19 08/18/19 08/19/19 11:59 11:59 11:59 11:59 Intake Total 3619 / 3619 3346 / 3346 2693 / 2817 2781 / 2781 Output Total 2050 / 2050 2750 / 2750 1156 / 1256 1052 / 1052 Balance 1569 / 1569 596 / 596 1537 / 1561 1729 / 1729 Weight 101 lb 4 oz 98 lb 2 oz 119 lb 113 lb 11.2 oz Microbiology Reports for the Last 24 Hours: Microbiology 08/18/19 06:45 Sputum - Endotracheal Tube Aspirate Gram Stain - Final - Constitutional no acute distress - *Routine Respiratory Exam Present: patient mechanically ventilated, CTA bilaterally - *Routine Cardiovascular Exam Present: RRR Comments: Occasional narrow complex ectopic - *Routine Abdominal Exam Present: soft - *Routine Extremities Exam Absent: edema Assessment and Plan (1) COPD with exacerbation Current visit: Yes Status: Acute Category: Medical Code(s): J44.1 - Chronic obstructive pulmonary disease with (acute) exacerbation (2) Pneumonia Current visit: Yes Status: Acute Category: Medical Code(s): J18.9 - Pneumonia, unspecified organism (3) Acute respiratory failure Current visit: Yes Status: Acute Category: Medical Code(s): J96.00 - Acute respiratory failure, unspecified whether with hypoxia or hypercapnia (4) Leukocytosis Current visit: No Status: Acute Qualifiers: Leukocytosis type: unspecified Qualified Code(s): D72.829 - Elevated white blood cell count, unspecified Category: Medical Code(s): D72.829 - Elevated white blood cell count, unspecified (5) Tobacco use disorder Current visit: No Status: Chronic Category: Medical Code(s): F17.200 - Nicotine dependence, unspecified, uncomplicated (6) Anxiety Current visit: Yes Status: Acute Category: Medical Code(s): F41.9 - Anxiety disorder, unspecified (7) O2 dependent Current visit: Yes Status: Acute Category: Medical Code(s): Z99.81 - Dependence on supplemental oxygen - Assessment and plan all Dx Assessment and Plan for all problems:: We will attempt to wean her from the ventilator today.
[2019-08-20 05:43] LABS: Basophils % 0.2 % (0.1-2.0); Hematocrit 37.4 % (37.0-47.0); Hemoglobin 11.4 g/dL (12.2-16.2); Lymphocytes # 0.8 K/mm3 (0.7-4.5); Lymphocytes % 9.6 % (10-50); Mean Corpuscular HGB Conc 30.6 g/dL (31.8-35.4); Mean Corpuscular Volume 98.8 fl (81-99); Mean Platelet Volume 8.6 fl (7.4-10.4); Monocytes # 0.2 K/mm3 (0.1-1.0); Monocytes % 2.9 % (1.7-9.3); Neutrophils # 7.1 K/mm3 (1.8-7.8); Neutrophils % 87.2 % (37.0-80.0); Platelet Count 347 K/mm3 (142-424); Red Blood Count 3.79 M/mm3 (4.20-5.40); Red Cell Distribution Width 14.4 % (11.5-17.5); White Blood Count 8.1 K/mm3 (4.8-10.8)
[2019-08-20 05:55] LABS: Anion Gap 15.8 mEq/L (5-15); Calcium 7.8 mg/dL (8.5-10.1)
[2019-08-20 06:00] LABS: Hypochromasia 1+; Lymphocytes % 9 % (10-50); Neutrophils % 87 % (42-76); Total Cells Counted 100
[2019-08-20 07:01] LABS: ABG Base Excess -6.5 mmol/L (-2.4-2.3); ABG HCO3 18.5 mmhg (22.0-26.0); ABG Oxygen Saturation 98 % (90-100); ABG PCO2 31.4 mmhg (35.0-45.0); ABG PH 7.39 mmol/L (7.35-7.45); ABG PO2 108.3 mmhg (80-100); ABG TCO2 19.5 mmhg (23-27)
[2019-08-20 07:02] LABS: Allen's Test ACCEPTABLE; Oxygen 28 %; PEEP 5; Tidal Volume 500
--- NOTE | 2019-08-20 07:55 | Consult Report ---
History of Present Illness Consult date: 08/20/19 Requesting physician: Parth Calvin Chief complaint: Elevated troponin Additional Medical History:: 1. Severe COPD secondary to continued tobacco use, chronic home oxygen use 2. Coronary artery disease and peripheral artery disease A. Right and left heart catheterization with lower extremity runoff, 2016. Results: ANGIOGRAPHIC RESULTS: 1. The left main artery normal 2. The left anterior descending artery normal 3. The circumflex artery dominant and normal 4. The right coronary artery nondominant and has mid vessel 20-30% eccentric stenoses and distal 30-40% nonflow limiting stenoses 5. The URBINA ventriculogram reveals normal 65% 6. The left ventricular end-diastolic pressure 10 mmHg 7. The suprarenal abdominal aorta is normal 8. The right renal artery is singular and has a proximal 40% stenosis while the left renal artery singular and normal. 9. The mesenteric arteries are normal 10. The right common iliac artery has proximal 10-20% stenosis with a stent in its distal segment that extends into the external iliac artery. This stent has 30% in-stent restenosis while the internal iliac arteries occluded. The right external iliac artery is patent as it extends into the right common femoral artery which has mild atheromatous plaque. The right profunda femoris artery is normal. The right superficial femoral artery has mild atheromatous plaque with 30-40% stenosis at Lex's canal. The right popliteal artery is normal with three-vessel runoff below the knee to the ankle 11. The left common iliac artery has a long tubular 40% narrowing as it extends into the external iliac artery. The left internal iliac artery appears to be occluded ostially. The left common femoral artery is normal as is the left profunda femoris artery and the left superficial femoral artery. The left popliteal artery is normal with three-vessel runoff below the knee in the left side Right atrial saturation 78% Pulmonary artery saturation 79% Right atrial pressure is 3 mmHg Pulmonary artery pressure is 30/15 mmHg IMPRESSION: 1. Mild nonflow limiting coronary artery disease involving a nondominant mid and distal right coronary artery 2. Normal ejection fraction 3. Normal left ventricular end-diastolic pressure 4. Peripheral artery disease as described above 5. Mild pulmonary hypertension with normal left-sided filling pressures PLAN: 1. Medical management for both peripherally coronary artery disease 2. Tobacco cessation 3. High intensity statin therapy 3. Hypertension 4. Hyperlipidemia History of present illness: 64-year-old white female was admitted with bilateral pneumonia. [facility] History Medical History: Reports:: Cancer, Congestive Heart Failure, Coronary Artery Disease, Home Oxygen, Hypertension, Myocardial Infarction, Palpitations, Peripheral Artery Disease, Peripheral Vascular Disease Denies:: Diabetes Mellitus Type 1, Diabetes Mellitus Type 2, Internal Pacemaker, MRSA, Seizures *Have you ever received a pneumonia vaccine?: Yes *Have you received a flu vaccine this season?: No Other Medical History: Reports: Arthritis, Fibromyalgia, Hoarseness Laterality Cases: Right: Carpal Tunnel Release, Lumpectomy Other Surgeries: Yes: Cardiac Catheterization, Colonoscopy, Hernia Repair, Hysterectomy-Total, Other (BUNION SURGERY BILAT). No: Pacemaker Amputation: No Fractures: No - *Social History Educational Level: Attended College Smoking Status: Current every day smoker Tobacco Type: cigarettes # Packs/Day (cigarettes): 1 Alcohol Intake: never Alcohol Intake Frequency:: a few times a month *Occupational Status:: disabled Housing: apartment Household Members: family, friend(s) *Travel in the last 8 weeks: None Family Hx:: Cancer, Coronary Artery Disease, no Diabetes Meds Home Medications Medication Instructions Recorded Confirmed Type Albuterol Sulfate [Albuterol HFA 2 puff IH Q4HP PRN 01/21/18 08/15/19 History Inhaler] Ropinirole HCl 1 mg PO HS 04/09/18 08/14/19 History Amitriptyline HCl [Elavil 10mg 10 mg PO HS 08/14/19 08/15/19 History tablet] Aspirin [Aspirin 81mg chewable 81 mg PO HS 08/14/19 08/14/19 History tab] Umeclidinium Brm/Vilanterol Tr 1 puff IH HS 08/14/19 08/14/19 History [Anoro Ellipta 62.5-25 Mcg INH] Fluticasone Propionate [Flovent 1 puff IH BID 08/15/19 08/15/19 History Diskus] Tramadol HCl [Tramadol 50mg 50 mg PO BIDP PRN 08/15/19 08/15/19 History Tab] Allergies Allergy/AdvReac Type Severity Reaction Status Date / Time clopidogrel [From PLAVIX] Allergy Unknown S-SKIN Verified 08/14/19 21:36 ERUPTIONS Review of Systems - Review of Systems Review of systems:: unable to obtain Pt sedated on the ventilator - *Neurologic Reports dizziness, Denies abnormal speech, Denies behavioral changes, Denies confusion, Denies headache(s), Denies fainting Exam Vital signs and Labs for Last 24 Hours: Temp Pulse Resp BP Pulse Ox 98.3 F 76 16 114/77 100 08/20/19 07:00 08/20/19 07:00 08/20/19 07:00 08/20/19 07:00 08/20/19 07:00 Laboratory Results - last 24 hr 08/20/19 05:25: WBC 8.1, RBC 3.79 L, Hgb 11.4 L, Hct 37.4, MCV 98.8, MCH 30.2, MCHC 30.6 L, RDW 14.4, Plt Count 347 D, MPV 8.6, Neut % (Auto) 87.2 H, Lymph % (Auto) 9.6 L, [place] % (Auto) 2.9, Eos % (Auto) 0.0 L, Baso % (Auto) 0.2, Neut # (Auto) 7.1, Lymph # (Auto) 0.8, [place] # (Auto) 0.2, Eos # (Auto) 0.0, Baso # (Auto) 0.0, Total Counted 100, Neutrophils % (Manual) 87 H, Band Neutrophils % 4.0, Lymphocytes % (Manual) 9 L, Hypersegmented Neuts 1+, Platelet Estimate Normal, Hypochromasia 1+, Microcytosis 1+ 08/20/19 05:25: Sodium 146 H, Potassium 3.8, Chloride 113 H, Carbon Dioxide 21, Anion Gap 15.8 H, BUN 37 H D, Creatinine 0.75, Estimated Creat Clear 47, Estimated GFR 78, Est GFR ( Amer) 94, Glucose 91, Calcium 7.8 L 08/20/19 06:00: Specimen Source Left radial, O2 % 28, ABG pH 7.39, ABG pCO2 31.4 L, ABG pO2 108.3 H, ABG HCO3 18.5 L, ABG Total CO2 19.5 L, ABG O2 Saturation 98, ABG Base Excess -6.5 L, Sam Test Acceptable, Vent Rate 16, Tidal Volume 500, PEEP 5 I & O for Last 24 hours: Intake & Output 08/17/19 08/18/19 08/19/19 08/20/19 11:59 11:59 11:59 11:59 Intake Total 3346 / 3346 2693 / 2817 3271 / 3512 2600 / 2600 Output Total 2750 / 2750 1156 / 1256 1122 / 1197 612 / 612 Balance 596 / 596 1537 / 1561 2149 / 2315 1987 / 1987 Weight 98 lb 2 oz 119 lb 113 lb 11.2 oz 121 lb 4.8 oz Microbiology Reports for the Last 24 Hours: Microbiology 08/14/19 16:29 Blood Blood Culture - Final NO GROWTH AFTER 5 DAYS 08/14/19 16:29 Blood Blood Culture - Final NO GROWTH AFTER 5 DAYS Narrative: Pt sedated on the vent - *Routine Respiratory Exam Present: decreased breath sounds, wheezes. Absent: accessory muscle use, rales, rhonchi - *Routine Cardiovascular Exam Present: RRR. Absent: murmur, gallop, rubs - *Routine Extremities Exam Absent: edema, calf tenderness - *Routine Neurological Exam sedated on the vent Assessment and Plan (1) COPD with exacerbation Current visit: Yes Status: Acute Category: Medical Code(s): J44.1 - Chronic obstructive pulmonary disease with (acute) exacerbation (2) Pneumonia Current visit: Yes Status: Acute Category: Medical Code(s): J18.9 - Pneumonia, unspecified organism (3) Acute respiratory failure Current visit: Yes Status: Acute Category: Medical Code(s): J96.00 - Acute respiratory failure, unspecified whether with hypoxia or hypercapnia (4) Leukocytosis Current visit: No Status: Acute Qualifiers: Qualified Code(s): D72.829 - Elevated white blood cell count, unspecified Category: Medical Code(s): D72.829 - Elevated white blood cell count, unspecified (5) Tobacco use disorder Current visit: No Status: Chronic Category: Medical Code(s): F17.200 - Nicotine dependence, unspecified, uncomplicated (6) Anxiety Current visit: Yes Status: Acute Category: Medical Code(s): F41.9 - Anxiety disorder, unspecified (7) O2 dependent Current visit: Yes Status: Acute Category: Medical Code(s): Z99.81 - Dependence on supplemental oxygen (8) NSTEMI (non-ST elevated myocardial infarction) Current visit: Yes Status: Acute Category: Medical Code(s): I21.4 - Non-ST elevation (NSTEMI) myocardial infarction (9) CAD (coronary artery disease) Current visit: No Status: Chronic Category: Medical Code(s): I25.10 - Atherosclerotic heart disease of [place] coronary artery without angina pectoris - Assessment and plan all Dx Assessment and Plan for all problems:: 1. Non-ST elevation SD (type II) secondary to respiratory distress/failure with subsequent intubation mechanical ventilation. Cardiac catheterization from 2017 shows mild to moderate coronary artery disease. Echocardiogram today shows preserved ejection fraction. Recommend adding low-dose beta-gino for assistance in heart rate control and in light of non-ST elevation SD. Continue aspirin therapy. Consideration for repeat cardiac cath once patient is off the ventilator if needed, as pt could not walk long on treadmill nor could she tolerate lexiscan. 2. Vent management per Dr. Calvin
--- NOTE | 2019-08-20 08:46 | Progress Note ---
<Regine Gilmore - Last Filed: 08/20/19 08:43> Internal Medicine - PN: Subj *Date: 08/20/19 *Time: 08:43 Interval history: Laboratory Tests 08/20/19 06:00 O2 % 28 ABG pH 7.39 ABG pCO2 31.4 L ABG pO2 108.3 H ABG HCO3 18.5 L ABG Total CO2 19.5 L ABG O2 Saturation 98 Sam Test Acceptable Vent Rate 16 Tidal Volume 500 PEEP 5 Laboratory Tests 08/20/19 08/20/19 05:25 05:25 WBC 8.1 RBC 3.79 L Hgb 11.4 L Hct 37.4 MCV 98.8 Plt Count 347 D Neut % (Auto) 87.2 H Lymph % (Auto) 9.6 L [place] % (Auto) 2.9 Sodium 146 H Potassium 3.8 Chloride 113 H Carbon Dioxide 21 Anion Gap 15.8 H BUN 37 H D Creatinine 0.75 Calcium 7.8 L Per nursing: Unsuccessful weaning process yesterday with increase in heart rate and blood pressure and respiratory rate. Patient remains on a vent with tidal volume of 500 FiO2 28%, respiratory rate 16 with 5 of PEEP. She does assist consistently. She has minimal secretions. She remains on Versed drip. NG tube was repositioned and she will have another chest x-ray. If in good position we will start tube feedings. She has had adequate urinary output. Patient indicates no chest pain Cardiology consult noted and appreciated Exam Vital signs and Labs for Last 24 Hours: Temp Pulse Resp BP Pulse Ox 98.3 F 76 16 114/77 100 08/20/19 07:00 08/20/19 07:00 08/20/19 07:00 08/20/19 07:00 08/20/19 08:00 Laboratory Results - last 24 hr 08/20/19 05:25: WBC 8.1, RBC 3.79 L, Hgb 11.4 L, Hct 37.4, MCV 98.8, MCH 30.2, MCHC 30.6 L, RDW 14.4, Plt Count 347 D, MPV 8.6, Neut % (Auto) 87.2 H, Lymph % (Auto) 9.6 L, [place] % (Auto) 2.9, Eos % (Auto) 0.0 L, Baso % (Auto) 0.2, Neut # (Auto) 7.1, Lymph # (Auto) 0.8, [place] # (Auto) 0.2, Eos # (Auto) 0.0, Baso # (Auto) 0.0, Total Counted 100, Neutrophils % (Manual) 87 H, Band Neutrophils % 4.0, Lymphocytes % (Manual) 9 L, Hypersegmented Neuts 1+, Platelet Estimate Normal, Hypochromasia 1+, Microcytosis 1+ 08/20/19 05:25: Sodium 146 H, Potassium 3.8, Chloride 113 H, Carbon Dioxide 21, Anion Gap 15.8 H, BUN 37 H D, Creatinine 0.75, Estimated Creat Clear 47, Estimated GFR 78, Est GFR ( Amer) 94, Glucose 91, Calcium 7.8 L 08/20/19 06:00: Specimen Source Left radial, O2 % 28, ABG pH 7.39, ABG pCO2 31.4 L, ABG pO2 108.3 H, ABG HCO3 18.5 L, ABG Total CO2 19.5 L, ABG O2 Saturation 98, ABG Base Excess -6.5 L, Sam Test Acceptable, Vent Rate 16, Tidal Volume 500, PEEP 5 I & O for Last 24 hours: Intake & Output 08/17/19 08/18/19 08/19/19 08/20/19 11:59 11:59 11:59 11:59 Intake Total 3346 / 3346 2693 / 2817 3271 / 3512 2600 / 2600 Output Total 2750 / 2750 1156 / 1256 1122 / 1197 612 / 612 Balance 596 / 596 1537 / 1561 2149 / 2315 1987 / 1987 Weight 98 lb 2 oz 119 lb 113 lb 11.2 oz 121 lb 4.8 oz Microbiology Reports for the Last 24 Hours: Microbiology 08/18/19 06:45 Sputum - Endotracheal Tube Aspirate Gram Stain - Final 08/18/19 06:45 Sputum - Endotracheal Tube Aspirate Sputum Culture - Preliminary 08/14/19 16:29 Blood Blood Culture - Final NO GROWTH AFTER 5 DAYS 08/14/19 16:29 Blood Blood Culture - Final NO GROWTH AFTER 5 DAYS - Constitutional no acute distress Comments: Responsive and seems to know what is going on. Indicates that her mouth is dry - *Routine Respiratory Exam Present: CTA bilaterally (Good bilateral air movement) - *Routine Cardiovascular Exam Present: RRR (Monitor showing sinus rhythm in the 60s) - *Routine Abdominal Exam Present: soft, normoactive bowel sounds. Absent: tenderness - *Routine Extremities Exam Absent: edema Comments: Left leg is somewhat mottled. Right leg is pale. Unable to feel pedal pulses. - *Routine Neurological Exam Present: alert Lethargic on Versed drip Assessment and Plan (1) COPD with exacerbation Current visit: Yes Status: Acute Category: Medical Code(s): J44.1 - Chronic obstructive pulmonary disease with (acute) exacerbation (2) Pneumonia Current visit: Yes Status: Acute Category: Medical Code(s): J18.9 - Pneumonia, unspecified organism (3) Acute respiratory failure Current visit: Yes Status: Acute Category: Medical Code(s): J96.00 - Acute respiratory failure, unspecified whether with hypoxia or hypercapnia (4) Leukocytosis Current visit: No Status: Acute Qualifiers: Leukocytosis type: unspecified Qualified Code(s): D72.829 - Elevated white blood cell count, unspecified Category: Medical Code(s): D72.829 - Elevated white blood cell count, unspecified (5) Tobacco use disorder Current visit: No Status: Chronic Category: Medical Code(s): F17.200 - Nicotine dependence, unspecified, uncomplicated (6) Anxiety Current visit: Yes Status: Acute Category: Medical Code(s): F41.9 - Anxiety disorder, unspecified (7) O2 dependent Current visit: Yes Status: Acute Category: Medical Code(s): Z99.81 - Dependence on supplemental oxygen (8) NSTEMI (non-ST elevated myocardial infarction) Current visit: Yes Status: Acute Category: Medical Code(s): I21.4 - Non-ST elevation (NSTEMI) myocardial infarction (9) CAD (coronary artery disease) Current visit: No Status: Chronic Category: Medical Code(s): I25.10 - Atherosclerotic heart disease of [place] coronary artery without angina pectoris (10) Peripheral vascular disease Current visit: Yes Status: Acute Category: Medical Code(s): I73.9 - Peripheral vascular disease, unspecified - Assessment and plan all Dx Assessment and Plan for all problems:: We will have venous Doppler studies done of bilateral lower extremities. We will again try to wean patient from vent. <Parth Calvin - Last Filed: 08/20/19 13:54> Internal Medicine - PN: Subj *Date: 08/20/19 *Time: 13:51 Exam Vital signs and Labs for Last 24 Hours: Temp Pulse Resp BP Pulse Ox 98.8 F 93 H 15 118/71 100 08/20/19 12:00 08/20/19 12:00 08/20/19 12:00 08/20/19 12:00 08/20/19 12:00 Laboratory Results - last 24 hr 08/20/19 05:25: WBC 8.1, RBC 3.79 L, Hgb 11.4 L, Hct 37.4, MCV 98.8, MCH 30.2, MCHC 30.6 L, RDW 14.4, Plt Count 347 D, MPV 8.6, Neut % (Auto) 87.2 H, Lymph % (Auto) 9.6 L, [place] % (Auto) 2.9, Eos % (Auto) 0.0 L, Baso % (Auto) 0.2, Neut # (Auto) 7.1, Lymph # (Auto) 0.8, [place] # (Auto) 0.2, Eos # (Auto) 0.0, Baso # (Auto) 0.0, Total Counted 100, Neutrophils % (Manual) 87 H, Band Neutrophils % 4.0, Lymphocytes % (Manual) 9 L, Hypersegmented Neuts 1+, Platelet Estimate Normal, Hypochromasia 1+, Microcytosis 1+ 08/20/19 05:25: Sodium 146 H, Potassium 3.8, Chloride 113 H, Carbon Dioxide 21, Anion Gap 15.8 H, BUN 37 H D, Creatinine 0.75, Estimated Creat Clear 47, Estimated GFR 78, Est GFR ( Amer) 94, Glucose 91, Calcium 7.8 L 08/20/19 06:00: Specimen Source Left radial, O2 % 28, ABG pH 7.39, ABG pCO2 31.4 L, ABG pO2 108.3 H, ABG HCO3 18.5 L, ABG Total CO2 19.5 L, ABG O2 Saturation 98, ABG Base Excess -6.5 L, Sam Test Acceptable, Vent Rate 16, Tidal Volume 500, PEEP 5 I & O for Last 24 hours: Intake & Output 08/18/19 08/19/19 08/20/19 11/12/19 11:59 11:59 11:59 11:59 Intake Total 2693 / 2817 3271 / 3512 3129 / 3202 73 / 73 Output Total 1156 / 1256 1122 / 1197 853 / 874 Balance 1537 / 1561 2149 / 2315 2276 / 2328 52 / 52 Weight 119 lb 113 lb 11.2 oz 121 lb 4.8 oz Microbiology Reports for the Last 24 Hours: Microbiology 08/18/19 06:45 Sputum - Endotracheal Tube Aspirate Gram Stain - Final 08/18/19 06:45 Sputum - Endotracheal Tube Aspirate Sputum Culture - Preliminary 08/14/19 16:29 Blood Blood Culture - Final NO GROWTH AFTER 5 DAYS 08/14/19 16:29 Blood Blood Culture - Final NO GROWTH AFTER 5 DAYS Assessment and Plan (1) COPD with exacerbation Current visit: Yes Status: Acute Category: Medical Code(s): J44.1 - Chronic obstructive pulmonary disease with (acute) exacerbation (2) Pneumonia Current visit: Yes Status: Acute Category: Medical Code(s): J18.9 - Pneumonia, unspecified organism (3) Acute respiratory failure Current visit: Yes Status: Acute Category: Medical Code(s): J96.00 - Acute respiratory failure, unspecified whether with hypoxia or hypercapnia (4) Leukocytosis Current visit: No Status: Acute Qualifiers: Leukocytosis type: unspecified Qualified Code(s): D72.829 - Elevated white blood cell count, unspecified Category: Medical Code(s): D72.829 - Elevated white blood cell count, unspecified (5) Tobacco use disorder Current visit: No Status: Chronic Category: Medical Code(s): F17.200 - Nicotine dependence, unspecified, uncomplicated (6) Anxiety Current visit: Yes Status: Acute Category: Medical Code(s): F41.9 - Anxiety disorder, unspecified (7) O2 dependent Current visit: Yes Status: Acute Category: Medical Code(s): Z99.81 - Dependence on supplemental oxygen (8) NSTEMI (non-ST elevated myocardial infarction) Current visit: Yes Status: Acute Category: Medical Code(s): I21.4 - Non-ST elevation (NSTEMI) myocardial infarction (9) CAD (coronary artery disease) Current visit: No Status: Chronic Category: Medical Code(s): I25.10 - Atherosclerotic heart disease of [place] coronary artery without angina pectoris (10) Peripheral vascular disease Current visit: Yes Status: Acute Category: Medical Code(s): I73.9 - Peripheral vascular disease, unspecified - Assessment and plan all Dx Assessment and Plan for all problems:: Patient seen and examined this morning. She was stable through the night. She has been communicating with staff by writing on the board. Her labs look good this morning. Chest x-ray is stable. Blood gas improved. Cardiology has been consulted. Verbal report is that her echo is satisfactory. They feel her symptoms are all pulmonary in origin. We will attempt to wean the ventilator again today. This may prove difficult considering the degree of her underlying COPD.
--- NOTE | 2019-08-20 19:14 | Cardiology Report ---
APPROVED REPORT EXAM: Comprehensive 2D, Doppler, and color-flow Echocardiogram Mounting Inspector: Shaila Park CRT Ht: 5 ft 2 in Wt: 113lbs BSA: 1.50 BP: 119/87 mmHg Indications: OR, FEVER, INTUBATED, HOME OE, PVD, CAD, CHF PT FLAT ON BACK DIFFICULT EXAM 2D Dimensions LVOT 1.62 cm (M/F) 1.5-2.5 M-Mode Dimensions RVDd 1.46 cm (0.9-2.6)LVDd 5.07 cm (3.5-5.7) LVDs 4.28 cm (3.5-5.7)IVSd 1.05 cm (0.6-1.1) PWd 0.29 cm (0.6-1.1)EF (Teich) 32.70% FS 15.60% EDV (Teich) 122.10 mL ESV (Teich) 82.20 mL LV Diastology E/A Ratio 1.37 Mitral Valve MV A Velocity 66.00 (40-130 cm/s) Left Ventricle Left atrium is mildly enlarged, left ventricle is normal size, mild concentric left ventricular hypertrophy, visually estimated ejection fraction 50% with no regional wall motion abnormality, endocardial surfaces are poorly visualized, diastolic parameters are inconclusive. Right Ventricle Right atrium right ventricular normal size and contractility. Aortic Valve Aortic valve is thickened and calcified leaflet continue to display mobility. There is no aortic stenosis aortic insufficiency. Mitral Valve Mitral valve is grossly normal, there is mild mitral regurgitation. Tricuspid Valve Tricuspid valve is grossly normal, there is mild tricuspid regurgitation, tricuspid regurgitation jet velocity is inadequate for calculation of the right ventricular systolic pressure, diastolic parameters are inconclusive. Pulmonic Valve Pulmonic valve is poorly visualized. Great Vessels Aortic root is normal size. Pericardium No significant pericardial effusion noted. Conclusion 1. Technically very difficult study because of the patient fact in poor acoustic windows 2. Mildly enlarged left atrium, normal left ventricular size, mild concentric left ventricular hypertrophy, visually estimated ejection fraction 55% with no regional wall motion abnormality, diastolic parameters are inconclusive. 3. Thickened and calcified aortic valve without aortic stenosis aortic insufficiency 4. Mild mitral and tricuspid regurgitation 5. No significant pericardial effusion noted. Electronically signed by : Cristi Shcwab, 08/20/2019 19:13:43
[2019-08-21 06:12] LABS: Basophils % 0.1 % (0.1-2.0); Eosinophils % 0.1 % (0.1-12.0); Hematocrit 35.8 % (37.0-47.0); Hemoglobin 10.9 g/dL (12.2-16.2); Lymphocytes # 0.5 K/mm3 (0.7-4.5); Lymphocytes % 6.5 % (10-50); Mean Corpuscular HGB Conc 30.5 g/dL (31.8-35.4); Mean Corpuscular Volume 99.6 fl (81-99); Mean Platelet Volume 9.3 fl (7.4-10.4); Monocytes # 0.2 K/mm3 (0.1-1.0); Neutrophils # 6.5 K/mm3 (1.8-7.8); Neutrophils % 90.2 % (37.0-80.0); Platelet Count 363 K/mm3 (142-424); Red Blood Count 3.59 M/mm3 (4.20-5.40); Red Cell Distribution Width 14.7 % (11.5-17.5); White Blood Count 7.2 K/mm3 (4.8-10.8)
[2019-08-21 06:21] LABS: Anion Gap 11.7 mEq/L (5-15); Calcium 7.4 mg/dL (8.5-10.1)
[2019-08-21 07:03] LABS: ABG Base Excess -5.5 mmol/L (-2.4-2.3); ABG HCO3 19.5 mmhg (22.0-26.0); ABG Oxygen Saturation 94 % (90-100); ABG PCO2 33.4 mmhg (35.0-45.0); ABG PH 7.39 mmol/L (7.35-7.45); ABG PO2 75.2 mmhg (80-100); ABG TCO2 20.6 mmhg (23-27)
[2019-08-21 07:04] LABS: Allen's Test ACCEPTABLE; Oxygen 28 %; PEEP 5; Tidal Volume 500
--- NOTE | 2019-08-21 08:10 | Progress Note ---
Subjective Date: 08/21/19 Time: 08:03 Principal diagnosis: Respiratory failure Interval history: 64 yo WF sedated on vent but able to move extremities. Second attempt to wean off vent failed due to elevated RR, HR and BP. Now on propafol. Telemetry shows NSR I/O positive 11 liters with edema noted despite elevated BUN. Exam Vital signs and Labs for Last 24 Hours: Temp Pulse Resp BP Pulse Ox 98.1 F 78 16 123/77 95 08/21/19 04:00 08/21/19 07:00 08/21/19 07:00 08/21/19 07:00 08/21/19 07:00 Laboratory Results - last 24 hr 08/21/19 05:27: WBC 7.2, RBC 3.59 L, Hgb 10.9 L, Hct 35.8 L, MCV 99.6 H, MCH 30.4, MCHC 30.5 L, RDW 14.7, Plt Count 363, MPV 9.3, Neut % (Auto) 90.2 H, Lymph % (Auto) 6.5 L, [place] % (Auto) 3.0, Eos % (Auto) 0.1, Baso % (Auto) 0.1, Neut # (Auto) 6.5, Lymph # (Auto) 0.5 L, [place] # (Auto) 0.2, Eos # (Auto) 0.0, Baso # (Auto) 0.0 08/21/19 05:27: Sodium 147 H, Potassium 3.7, Chloride 116 H, Carbon Dioxide 23, Anion Gap 11.7, BUN 43 H, Creatinine 0.67, Estimated Creat Clear 51, Estimated GFR 89, Est GFR ( Amer) 108, Glucose 125 H, Calcium 7.4 L 08/21/19 07:00: Specimen Source L radial, O2 % 28, ABG pH 7.39, ABG pCO2 33.4 L, ABG pO2 75.2 L, ABG HCO3 19.5 L, ABG Total CO2 20.6 L, ABG O2 Saturation 94, ABG Base Excess -5.5 L, Sam Test Acceptable, Vent Rate 16, Tidal Volume 500, PEEP 5 I & O for Last 24 hours: Intake & Output 08/18/19 08/19/19 08/20/19 08/21/19 11:59 11:59 11:59 11:59 Intake Total 2693 / 2817 3271 / 3512 3129 / 3202 2850 / 2850 Output Total 1156 / 1256 1122 / 1197 853 / 874 554 / 554 Balance 1537 / 1561 2149 / 2315 2276 / 2328 2296 / 2296 Weight 119 lb 113 lb 11.2 oz 121 lb 4.8 oz 124 lb 6 oz Microbiology Reports for the Last 24 Hours: Microbiology 08/18/19 06:45 Sputum - Endotracheal Tube Aspirate Gram Stain - Final 08/18/19 06:45 Sputum - Endotracheal Tube Aspirate Sputum Culture - P reliminary - *Routine Respiratory Exam Present: CTA bilaterally. Absent: accessory muscle use, rales, rhonchi, wheezes - *Routine Cardiovascular Exam Present: RRR. Absent: murmur, gallop, rubs - *Routine Extremities Exam Present: edema. Absent: calf tenderness Progress Note: A&P (1) COPD with exacerbation Status: Acute Current Visit: Yes (2) Pneumonia Status: Acute Current Visit: Yes (3) Acute respiratory failure Status: Acute Current Visit: Yes (4) Leukocytosis Status: Acute Current Visit: No (5) Tobacco use disorder Status: Chronic Current Visit: No (6) Anxiety Status: Acute Current Visit: Yes (7) O2 dependent Status: Acute Current Visit: Yes (8) NSTEMI (non-ST elevated myocardial infarction) Status: Acute Current Visit: Yes (9) CAD (coronary artery disease) Status: Chronic Current Visit: No (10) Peripheral vascular disease Status: Acute Current Visit: Yes Assessment and Plan for All Diagnoses:: 1. Cardiac status stable. Continue ASA and bisoprolol. Echo shows normal LVEF. 2. Pulmonary issues per Dr. Calvin. 3. Recommend a dose of lasix due to intake >>output and difficulty weaning off vent.
[2019-08-21 08:40] LABS: Lymphocytes % 6 % (10-50); Monocytes % 4 % (2-9); Neutrophils % 89 % (42-76); Total Cells Counted 100
--- NOTE | 2019-08-21 08:44 | Progress Note ---
<Regine Gilmore - Last Filed: 08/21/19 08:48> Internal Medicine - PN: Subj *Date: 08/21/19 *Time: 08:48 Interval history: Patient was stable overnight. Vent settings with a tidal volume of 500, FiO2 of 28%, 5 of PEEP, and SIMV of 14. Patient does assist. NG tube with tube feedings. Patient is tolerating well. No stools. Gain of 11 pounds in 2 days. Chest x-ray shows bilateral pleural effusions. Nursing reports dependent edema in labia and arms. Patient indicates the only pain she has is in her throat with the tube. She would like E T-tube out. Exam Vital signs and Labs for Last 24 Hours: Temp Pulse Resp BP Pulse Ox 99.0 F 82 19 138/86 96 08/21/19 08:00 08/21/19 08:00 08/21/19 08:00 08/21/19 08:00 08/21/19 08:00 Laboratory Results - last 24 hr 08/21/19 05:27: WBC 7.2, RBC 3.59 L, Hgb 10.9 L, Hct 35.8 L, MCV 99.6 H, MCH 30.4, MCHC 30.5 L, RDW 14.7, Plt Count 363, MPV 9.3, Neut % (Auto) 90.2 H, Lymph % (Auto) 6.5 L, [place] % (Auto) 3.0, Eos % (Auto) 0.1, Baso % (Auto) 0.1, Neut # (Auto) 6.5, Lymph # (Auto) 0.5 L, [place] # (Auto) 0.2, Eos # (Auto) 0.0, Baso # (Auto) 0.0 08/21/19 05:27: Sodium 147 H, Potassium 3.7, Chloride 116 H, Carbon Dioxide 23, Anion Gap 11.7, BUN 43 H, Creatinine 0.67, Estimated Creat Clear 51, Estimated GFR 89, Est GFR ( Amer) 108, Glucose 125 H, Calcium 7.4 L 08/21/19 07:00: Specimen Source L radial, O2 % 28, ABG pH 7.39, ABG pCO2 33.4 L, ABG pO2 75.2 L, ABG HCO3 19.5 L, ABG Total CO2 20.6 L, ABG O2 Saturation 94, ABG Base Excess -5.5 L, Sam Test Acceptable, Vent Rate 16, Tidal Volume 500, PEEP 5 I & O for Last 24 hours: Intake & Output 08/18/19 08/19/19 08/20/19 08/21/19 11:59 11:59 11:59 11:59 Intake Total 2693 / 2817 3271 / 3512 3129 / 3202 2850 / 2850 Output Total 1156 / 1256 1122 / 1197 853 / 874 554 / 554 Balance 1537 / 1561 2149 / 2315 2276 / 2328 2296 / 2296 Weight 119 lb 113 lb 11.2 oz 121 lb 4.8 oz 124 lb 6 oz Microbiology Reports for the Last 24 Hours: Microbiology 08/18/19 06:45 Sputum - Endotracheal Tube Aspirate Gram Stain - Final 08/18/19 06:45 Sputum - Endotracheal Tube Aspirate Sputum Culture - Preliminary Radiology Reports for the Last 24 Hours: Chest x-ray 08/21/2019 IMPRESSION: 1. Good position of endotracheal tube and nasogastric tube. 2. Bilateral lower lobe pneumonia with bilateral effusions - Constitutional no acute distress Comments: Awake, alert and responds appropriately. Answers questions with yes and no not of the head. - *Routine Respiratory Exam Comments: Breath sounds posteriorly sound clear with good air movement and scattered rhonchi - *Routine Cardiovascular Exam Present: RRR (Monitor showing sinus rhythm) - *Routine Abdominal Exam Present: soft, normoactive bowel sounds. Absent: tenderness - *Routine Extremities Exam Absent: edema Comments: Improved color of bilateral legs - *Routine Neurological Exam Present: alert Assessment and Plan (1) COPD with exacerbation Current visit: Yes Status: Acute Category: Medical Code(s): J44.1 - Chronic obstructive pulmonary disease with (acute) exacerbation (2) Pneumonia Current visit: Yes Status: Acute Category: Medical Code(s): J18.9 - Pneumonia, unspecified organism (3) Acute respiratory failure Current visit: Yes Status: Acute Category: Medical Code(s): J96.00 - Acute respiratory failure, unspecified whether with hypoxia or hypercapnia (4) Leukocytosis Current visit: No Status: Acute Qualifiers: Leukocytosis type: unspecified Qualified Code(s): D72.829 - Elevated white blood cell count, unspecified Category: Medical Code(s): D72.829 - Elevated white blood cell count, unsp ecified (5) Tobacco use disorder Current visit: No Status: Chronic Category: Medical Code(s): F17.200 - Nicotine dependence, unspecified, uncomplicated (6) Anxiety Current visit: Yes Status: Acute Category: Medical Code(s): F41.9 - Anxiety disorder, unspecified (7) O2 dependent Current visit: Yes Status: Acute Category: Medical Code(s): Z99.81 - Dependence on supplemental oxygen (8) NSTEMI (non-ST elevated myocardial infarction) Current visit: Yes Status: Acute Category: Medical Code(s): I21.4 - Non-ST elevation (NSTEMI) myocardial infarction (9) CAD (coronary artery disease) Current visit: No Status: Chronic Category: Medical Code(s): I25.10 - Atherosclerotic heart disease of [place] coronary artery without angina pectoris (10) Peripheral vascular disease Current visit: Yes Status: Acute Category: Medical Code(s): I73.9 - Peripheral vascular disease, unspecified - Assessment and plan all Dx Assessment and Plan for all problems:: We will give a dose of Lasix this a.m. Will decrease maintenance IV fluids to 75/h. Will continue with weaning process today. <Parth Calvin - Last Filed: 08/21/19 13:46> Internal Medicine - PN: Subj *Date: 08/21/19 *Time: 13:44 Exam Vital signs and Labs for Last 24 Hours: Temp Pulse Resp BP Pulse Ox 98.2 F 83 19 147/96 H 93 L 08/21/19 11:00 08/21/19 11:00 08/21/19 11:00 08/21/19 11:00 08/21/19 11:00 Laboratory Results - last 24 hr 08/21/19 05:27: WBC 7.2, RBC 3.59 L, Hgb 10.9 L, Hct 35.8 L, MCV 99.6 H, MCH 30.4, MCHC 30.5 L, RDW 14.7, Plt Count 363, MPV 9.3, Neut % (Auto) 90.2 H, Lymph % (Auto) 6.5 L, [place] % (Auto) 3.0, Eos % (Auto) 0.1, Baso % (Auto) 0.1, Neut # (Auto) 6.5, Lymph # (Auto) 0.5 L, [place] # (Auto) 0.2, Eos # (Auto) 0.0, Baso # (Auto) 0.0, Total Counted 100, Neutrophils % (Manual) 89 H, Band Neutrophils % 1.0, Lymphocytes % (Manual) 6 L, Monocytes % (Manual) 4, Platelet Estimate Normal 08/21/19 05:27: Sodium 147 H, Potassium 3.7, Chloride 116 H, Carbon Dioxide 23, Anion Gap 11.7, BUN 43 H, Creatinine 0.67, Estimated Creat Clear 51, Estimated GFR 89, Est GFR ( Amer) 108, Glucose 125 H, Calcium 7.4 L 08/21/19 07:00: Specimen Source L radial, O2 % 28, ABG pH 7.39, ABG pCO2 33.4 L, ABG pO2 75.2 L, ABG HCO3 19.5 L, ABG Total CO2 20.6 L, ABG O2 Saturation 94, ABG Base Excess -5.5 L, Sam Test Acceptable, Vent Rate 16, Tidal Volume 500, PEEP 5 I & O for Last 24 hours: Intake & Output 08/19/19 08/20/19 08/21/19 08/22/19 11:59 11:59 11:59 11:59 Intake Total 3271 / 3512 3129 / 3202 3528 / 3528 Output Total 1122 / 1197 853 / 874 1409 / 1409 Balance 2149 / 2315 2276 / 2328 2119 / 2119 Weight 113 lb 11.2 oz 121 lb 4.8 oz 124 lb 6 oz Microbiology Reports for the Last 24 Hours: Microbiology 08/18/19 06:45 Sputum - Endotracheal Tube Aspirate Gram Stain - Final 08/18/19 06:45 Sputum - Endotracheal Tube Aspirate Sputum Culture - Preliminary Assessment and Plan (1) COPD with exacerbation Current visit: Yes Status: Acute Category: Medical Code(s): J44.1 - Chronic obstructive pulmonary disease with (acute) exacerbation (2) Pneumonia Current visit: Yes Status: Acute Category: Medical Code(s): J18.9 - Pneumonia, unspecified organism (3) Acute respiratory failure Current visit: Yes Status: Acute Category: Medical Code(s): J96.00 - Acute respiratory failure, unspecified whether with hypoxia or hypercapnia (4) Leukocytosis Current visit: No Status: Acute Qualifiers: Leukocytosis type: unspecified Qualified Code(s): D72.829 - Elevated white blood cell count, unspecified Category: Medical Code(s): D72.829 - Elevated white blood cell count, unspecified (5) Tobacco use disorder Current visit: No Status: Chronic Category: Medical Code(s): F17.200 - Nicotine dependence, unspecified, uncomplicated (6) Anxiety Current visit: Yes Status: Acute Category: Medical Code(s): F41.9 - Anxiety disorder, unspecified (7) O2 dependent Current visit: Yes Status: Acute Category: Medical Code(s): Z99.81 - Dependence on supplemental oxygen (8) NSTEMI (non-ST elevated myocardial infarction) Current visit: Yes Status: Acute Category: Medical Code(s): I21.4 - Non-ST elevation (NSTEMI) myocardial infarction (9) CAD (coronary artery disease) Current visit: No Status: Chronic Category: Medical Code(s): I25.10 - Atherosclerotic heart disease of [place] coronary artery without angina pectoris (10) Peripheral vascular disease Current visit: Yes Status: Acute Category: Medical Code(s): I73.9 - Peripheral vascular disease, unspecified - Assessment and plan all Dx Assessment and Plan for all problems:: Concur with assessment and plan to vent today. Will give dose of Lasix today due to greater recording inputs although question if all of her outputs have been accurately reported. Weaning parameters otherwise look favorable.
--- NOTE | 2019-08-21 18:18 | Cardiology Report ---
APPROVED REPORT Bilateral Lower Extremity Venous Study for Academic Support Coordinator: CB Indications Current Smoker History of Smoking mottling of the left LE; unable to feel PP. Patient is on ventilator and difficult to position. Unable to follow commands. Risk Factors Immobility Current Smoker Medications Lovenox Aspirin Patient started Lovenox injections 08/18/19. Vein Imaging CFV (R): compressive, spontaneous, phasic, augmentation FEM (R): compressive, spontaneous, phasic, augmentation POP (R): compressive, spontaneous, phasic, augmentation PTV (R): Compressible GSV (R): compressive, spontaneous, phasic, augmentation Peroneals (R):Compressible GAS (R): Compressible CFV (L): compressive, spontaneous, phasic, augmentation FEM (L): compressive, spontaneous, phasic, augmentation POP (L): compressive, spontaneous, phasic, augmentation GSV (L): compressive, spontaneous, phasic, augmentation Peroneals (L):Compressible GAS (L): Compressible Conclusion No evidence of DVT or superficial thrombophlebitis in the veins scanned of the right lower extremity. No evidence of DVT or superficial thrombophlebitis in the veins scanned of the left lower extremity. Electronically signed by : Sam Turner MD 08/21/2019 18:17:43
[2019-08-22 05:48] LABS: Basophils % 0.2 % (0.1-2.0); Eosinophils % 0.1 % (0.1-12.0); Hematocrit 41.3 % (37.0-47.0); Hemoglobin 12.4 g/dL (12.2-16.2); Lymphocytes # 0.5 K/mm3 (0.7-4.5); Lymphocytes % 4.4 % (10-50); Mean Corpuscular HGB Conc 30.1 g/dL (31.8-35.4); Mean Corpuscular Volume 100.3 fl (81-99); Monocytes # 0.3 K/mm3 (0.1-1.0); Monocytes % 2.8 % (1.7-9.3); Neutrophils # 10.7 K/mm3 (1.8-7.8); Neutrophils % 92.5 % (37.0-80.0); Platelet Count 377 K/mm3 (142-424); Red Blood Count 4.11 M/mm3 (4.20-5.40); Red Cell Distribution Width 14.8 % (11.5-17.5); White Blood Count 11.5 K/mm3 (4.8-10.8)
[2019-08-22 05:57] LABS: Anion Gap 12.2 mEq/L (5-15); Calcium 7.7 mg/dL (8.5-10.1)
[2019-08-22 06:25] LABS: ABG Base Excess -2.4 mmol/L (-2.4-2.3); ABG Oxygen Saturation 95 % (90-100); ABG PCO2 41.4 mmhg (35.0-45.0); ABG PH 7.36 mmol/L (7.35-7.45); ABG PO2 75.9 mmhg (80-100); ABG TCO2 24.3 mmhg (23-27)
[2019-08-22 06:31] LABS: Allen's Test ACCEPTABLE; Oxygen 28 %; PEEP 5
--- NOTE | 2019-08-22 07:18 | Progress Note ---
Internal Medicine - PN: Subj *Date: 08/22/19 *Time: 07:18 Exam Vital signs and Labs for Last 24 Hours: Temp Pulse Resp BP Pulse Ox 97.0 F L 78 16 134/77 94 L 08/22/19 06:52 08/22/19 06:52 08/22/19 06:52 08/22/19 06:52 08/22/19 06:52 Laboratory Results - last 24 hr 08/21/19 05:27: WBC 7.2, RBC 3.59 L, Hgb 10.9 L, Hct 35.8 L, MCV 99.6 H, MCH 30.4, MCHC 30.5 L, RDW 14.7, Plt Count 363, MPV 9.3, Neut % (Auto) 90.2 H, Lymph % (Auto) 6.5 L, [place] % (Auto) 3.0, Eos % (Auto) 0.1, Baso % (Auto) 0.1, Neut # (Auto) 6.5, Lymph # (Auto) 0.5 L, [place] # (Auto) 0.2, Eos # (Auto) 0.0, Baso # (Auto) 0.0, Total Counted 100, Neutrophils % (Manual) 89 H, Band Neutrophils % 1.0, Lymphocytes % (Manual) 6 L, Monocytes % (Manual) 4, Platelet Estimate Normal 08/21/19 05:27: Sodium 147 H, Potassium 3.7, Chloride 116 H, Carbon Dioxide 23, Anion Gap 11.7, BUN 43 H, Creatinine 0.67, Estimated Creat Clear 51, Estimated GFR 89, Est GFR ( Amer) 108, Glucose 125 H, Calcium 7.4 L 08/22/19 05:28: WBC 11.5 H D, RBC 4.11 L, Hgb 12.4, Hct 41.3, MCV 100.3 H, MCH 30.2, MCHC 30.1 L, RDW 14.8, Plt Count 377, MPV 9.0, Neut % (Auto) 92.5 H, Lymph % (Auto) 4.4 L, [place] % (Auto) 2.8, Eos % (Auto) 0.1, Baso % (Auto) 0.2, Neut # (Auto) 10.7 H, Lymph # (Auto) 0.5 L, [place] # (Auto) 0.3, Eos # (Auto) 0.0, Baso # (Auto) 0.0 08/22/19 05:28: Sodium 151 H*, Potassium 3.2 L, Chloride 113 H, Carbon Dioxide 29 D, Anion Gap 12.2, BUN 42 H, Creatinine 0.71, Estimated Creat Clear 51, Estimated GFR 83, Est GFR ( Amer) 101, Glucose 109 H, Calcium 7.7 L 08/22/19 06:00: Specimen Source L radial, O2 % 28, ABG pH 7.36, ABG pCO2 41.4, ABG pO2 75.9 L, ABG HCO3 23.0, ABG Total CO2 24.3, ABG O2 Saturation 95, ABG Base Excess -2.4, Sam Test Acceptable, Vent Rate Cpap, PEEP 5 I & O for Last 24 hours: Intake & Output 08/19/19 08/20/19 08/21/19 08/22/19 23:59 23:59 23:59 23:59 Intake Total 3154 / 3239 3085 / 3247 3167 / 3235 679 / 679 Output Total 813 / 843 735 / 765 2382 / 2429 2706 / 2706 Balance 2341 / 2396 2350 / 2482 785 / 806 -2026 / -2026 Weight 51.573 kg 55.021 kg 56.416 kg 56.444 kg Microbiology Reports for the Last 24 Hours: Microbiology 08/18/19 06:45 Sputum - Endotracheal Tube Aspirate Gram Stain - Final 08/18/19 06:45 Sputum - Endotracheal Tube Aspirate Sputum Culture - Preliminary Assessment and Plan (1) COPD with exacerbation Current visit: Yes Status: Acute Category: Medical Code(s): J44.1 - Chronic obstructive pulmonary disease with (acute) exacerbation (2) Pneumonia Current visit: Yes Status: Acute Category: Medical Code(s): J18.9 - Pneumonia, unspecified organism (3) Acute respiratory failure Current visit: Yes Status: Acute Category: Medical Code(s): J96.00 - Acute respiratory failure, unspecified whether with hypoxia or hypercapnia (4) Leukocytosis Current visit: No Status: Acute Qualifiers: Leukocytosis type: unspecified Qualified Code(s): D72.829 - Elevated white blood cell count, unspecified Category: Medical Code(s): D72.829 - Elevated white blood cell count, unspe cified (5) Tobacco use disorder Current visit: No Status: Chronic Category: Medical Code(s): F17.200 - Nicotine dependence, unspecified, uncomplicated (6) Anxiety Current visit: Yes Status: Acute Category: Medical Code(s): F41.9 - Anxiety disorder, unspecified (7) O2 dependent Current visit: Yes Status: Acute Category: Medical Code(s): Z99.81 - Dependence on supplemental oxygen (8) NSTEMI (non-ST elevated myocardial infarction) Current visit: Yes Status: Acute Category: Medical Code(s): I21.4 - Non-ST elevation (NSTEMI) myocardial infarction (9) CAD (coronary artery disease) Current visit: No Status: Chronic Category: Medical Code(s): I25.10 - Atherosclerotic heart disease of [place] coronary artery without angina pectoris (10) Peripheral vascular disease Current visit: Yes Status: Acute Category: Medical Code(s): I73.9 - Peripheral vascular disease, unspecified The patient's infection will respond to the chosen ABx?: Yes Is the patient receiving the right drug, dose, and route?: Yes Could a more targeted ABx be ordered?: No
[2019-08-22 07:34] LABS: Lymphocytes % 5 % (10-50); Monocytes % 2 % (2-9); Neutrophils % 93 % (42-76); Total Cells Counted 100
--- NOTE | 2019-08-22 08:01 | Progress Note ---
<Regine Gilmore - Last Filed: 08/22/19 07:58> Internal Medicine - PN: Subj *Date: 08/22/19 *Time: 07:58 Interval history: Patient writes that she would like some sedation. She is ready for ET tube to be removed. She feels that her bowels need to move. Nursing notes reviewed. Oral tube out of place and removed. She refused to have it reinserted. She really did not want any care during the night and refused suctioning and turning. She is basically been on CPAP throughout the night with a respiratory rate around 20, heart rate stable in the 70s, and stable blood pressure. O2 sats have been satisfactory. ABGs this morning are normal. Potassium is low at 3.2. She did receive an additional dose of Lasix during the night. Exam Vital signs and Labs for Last 24 Hours: Temp Pulse Resp BP Pulse Ox 97.0 F L 78 16 134/77 94 L 08/22/19 06:52 08/22/19 06:52 08/22/19 06:52 08/22/19 06:52 08/22/19 06:52 Laboratory Results - last 24 hr 08/21/19 05:27: Total Counted 100, Neutrophils % (Manual) 89 H, Band Neutrophils % 1.0, Lymphocytes % (Manual) 6 L, Monocytes % (Manual) 4, Platelet Estimate Normal 08/22/19 05:28: WBC 11.5 H D, RBC 4.11 L, Hgb 12.4, Hct 41.3, MCV 100.3 H, MCH 30.2, MCHC 30.1 L, RDW 14.8, Plt Count 377, MPV 9.0, Neut % (Auto) 92.5 H, Lymph % (Auto) 4.4 L, [place] % (Auto) 2.8, Eos % (Auto) 0.1, Baso % (Auto) 0.2, Neut # (Auto) 10.7 H, Lymph # (Auto) 0.5 L, [place] # (Auto) 0.3, Eos # (Auto) 0.0, Baso # (Auto) 0.0, Total Counted 100, Neutrophils % (Manual) 93 H, Lymphocytes % (Manual) 5 L, Monocytes % (Manual) 2, Platelet Estimate Normal 08/22/19 05:28: Sodium 151 H*, Potassium 3.2 L, Chloride 113 H, Carbon Dioxide 29 D, Anion Gap 12.2, BUN 42 H, Creatinine 0.71, Estimated Creat Clear 51, Estimated GFR 83, Est GFR ( Amer) 101, Glucose 109 H, Calcium 7.7 L 08/22/19 06:00: Specimen Source L radial, O2 % 28, ABG pH 7.36, ABG pCO2 41.4, ABG pO2 75.9 L, ABG HCO3 23.0, ABG Total CO2 24.3, ABG O2 Saturation 95, ABG Base Excess -2.4, Sam Test Acceptable, Vent Rate Cpap, PEEP 5 I & O for Last 24 hours: Intake & Output 08/19/19 08/20/19 08/21/19 08/22/19 11:59 11:59 11:59 11:59 Intake Total 3271 / 3512 3129 / 3202 3528 / 3713 1840 / 1840 Output Total 1122 / 1197 853 / 874 1409 / 1784 3185 / 3185 Balance 2149 / 2315 2276 / 2328 2119 / 1929 -1345 / -1345 Weight 113 lb 11.2 oz 121 lb 4.8 oz 124 lb 6 oz 124 lb 7 oz Microbiology Reports for the Last 24 Hours: Microbiology 08/18/19 06:45 Sputum - Endotracheal Tube Aspirate Gram Stain - Final 08/18/19 06:45 Sputum - Endotracheal Tube Aspirate Sputum Culture - Preliminary Radiology Reports for the Last 24 Hours: 09/21/2019 chest x-ray IMPRESSION: 1. Good position of endotracheal tube. 2. No change bilateral lower lobe pneumonia with small effusions with COPD - Constitutional no acute distress, thin Comments: Sitting up in the bed. Has her glasses on. Watching a movie on her iPad. She appears comfortable and breathing is easy. Communicates easily. - *Routine Respiratory Exam Comments: Good bilateral breath sounds with scattered rhonchi - *Routine Cardiovascular Exam Present: RRR Comments: Showing sinus rhythm - *Routine Abdominal Exam Present: soft, normoactive bowel sounds Comments: She states abdomen feels full to palpation - *Routine Extremities Exam Absent: edema - *Routine Neurological Exam Present: alert, oriented X3 Assessment and Plan (1) COPD with exacerbation Current visit: Yes Status: Acute Category: Medical Code(s): J44.1 - Chronic obstructive pulmonary disease with (acute) exacerbation (2) Pneumonia Current visit: Yes Status: Acute Category: Medical Code(s): J18.9 - Pneumonia, unspecified organism (3) Acute respiratory failure Current visit: Yes Status: Acute Category: Medical Code(s): J96.00 - Acute respiratory failure, unspecified whether with hypoxia or hypercapnia (4) Leukocytosis Current visit: No Status: Acute Qualifiers: Leukocytosis type: unspecified Qualified Code(s): D72.829 - Elevated white blood cell count, unspecified Category: Medical Code(s): D72.829 - Elevated white blood cell count, unspecified (5) Tobacco use disorder Current visit: No Status: Chronic Category: Medical Code(s): F17.200 - [place] ot[place] dependence, unspecified, uncomplicated (6) Anxiety Current visit: Yes Status: Acute Category: Medical Code(s): F41.9 - Anxiety disorder, unspecified (7) O2 dependent Current visit: Yes Status: Acute Category: Medical Code(s): Z99.81 - Dependence on supplemental oxygen (8) NSTEMI (non-ST elevated myocardial infarction) Current visit: Yes Status: Acute Category: Medical Code(s): I21.4 - Non-ST elevation (NSTEMI) myocardial infarction (9) CAD (coronary artery disease) Current visit: No Status: Chronic Category: Medical Code(s): I25.10 - Atherosclerotic heart disease of [place] coronary artery without angina pectoris (10) Peripheral vascular disease Current visit: Yes Status: Acute Category: Medical Code(s): I73.9 - Peripheral vascular disease, unspecified - Assessment and plan all Dx Assessment and Plan for all problems:: Patient can be extubated today. We will need to add potassium. <Parth Calvin - Last Filed: 08/22/19 09:33> Internal Medicine - PN: Subj *Date: 08/22/19 *Time: 09:29 Exam Vital signs and Labs for Last 24 Hours: Temp Pulse Resp BP Pulse Ox 97.5 F L 77 22 146/80 H 93 L 08/22/19 09:00 08/22/19 09:00 08/22/19 09:00 08/22/19 09:00 08/22/19 09:00 Laboratory Results - last 24 hr 08/22/19 05:28: WBC 11.5 H D, RBC 4.11 L, Hgb 12.4, Hct 41.3, MCV 100.3 H, MCH 30.2, MCHC 30.1 L, RDW 14.8, Plt Count 377, MPV 9.0, Neut % (Auto) 92.5 H, Lymph % (Auto) 4.4 L, [place] % (Auto) 2.8, Eos % (Auto) 0.1, Baso % (Auto) 0.2, Neut # (Auto) 10.7 H, Lymph # (Auto) 0.5 L, [place] # (Auto) 0.3, Eos # (Auto) 0.0, Baso # (Auto) 0.0, Total Counted 100, Neutrophils % (Manual) 93 H, Lymphocytes % (Manual) 5 L, Monocytes % (Manual) 2, Platelet Estimate Normal 08/22/19 05:28: Sodium 151 H*, Potassium 3.2 L, Chloride 113 H, Carbon Dioxide 29 D, Anion Gap 12.2, BUN 42 H, Creatinine 0.71, Estimated Creat Clear 51, Estimated GFR 83, Est GFR ( Amer) 101, Glucose 109 H, Calcium 7.7 L 08/22/19 06:00: Specimen Source L radial, O2 % 28, ABG pH 7.36, ABG pCO2 41.4, ABG pO2 75.9 L, ABG HCO3 23.0, ABG Total CO2 24.3, ABG O2 Saturation 95, ABG Base Excess -2.4, Sam Test Acceptable, Vent Rate Cpap, PEEP 5 I & O for Last 24 hours: Intake & Output 08/19/19 08/20/19 08/21/19 08/22/19 11:59 11:59 11:59 11:59 Intake Total 3271 / 3512 3129 / 3202 3528 / 3713 2007 Output Total 1122 / 1197 853 / 874 1409 / 1784 3530 / 3530 Balance 2149 / 2315 2276 / 2328 2119 / 1929 -1522 / -1522 Weight 113 lb 11.2 oz 121 lb 4.8 oz 124 lb 6 oz 124 lb 7 oz Microbiology Reports for the Last 24 Hours: Microbiology 08/18/19 06:45 Sputum - Endotracheal Tube Aspirate Gram Stain - Final 08/18/19 06:45 Sputum - Endotracheal Tube Aspirate Sputum Culture - Final Normal Respiratory Tracee Assessment and Plan (1) COPD with exacerbation Current visit: Yes Status: Acute Category: Medical Code(s): J44.1 - Chronic obstructive pulmonary disease with (acute) exacerbation (2) Pneumonia Current visit: Yes Status: Acute Category: Medical Code(s): J18.9 - Pneumonia, unspecified organism (3) Acute respiratory failure Current visit: Yes Status: Acute Category: Medical Code(s): J96.00 - Acute respiratory failure, unspecified whether with hypoxia or hypercapnia (4) Leukocytosis Current visit: No Status: Acute Qualifiers: Leukocytosis type: unspecified Qualified Code(s): D72.829 - Elevated white blood cell count, unspecified Category: Medical Code(s): D72.829 - Elevated white blood cell count, unspecified (5) Tobacco use disorder Current visit: No Status: Chronic Category: Medical Code(s): F17.200 - Nicotine dependence, unspecified, uncomplicated (6) Anxiety Current visit: Yes Status: Acute Category: Medical Code(s): F41.9 - Anxiety disorder, unspecified (7) O2 dependent Current visit: Yes Status: Acute Category: Medical Code(s): Z99.81 - Dependence on supplemental oxygen (8) NSTEMI (non-ST elevated myocardial infarction) Current visit: Yes Status: Acute Category: Medical Code(s): I21.4 - Non-ST elevation (NSTEMI) myocardial infarction (9) CAD (coronary artery disease) Current visit: No Status: Chronic Category: Medical Code(s): I25.10 - Atherosclerotic heart disease of [place] coronary artery without angina pectoris (10) Peripheral vascular disease Current visit: Yes Status: Acute Category: Medical Code(s): I73.9 - Peripheral vascular disease, unspecified - Assessment and plan all Dx Assessment and Plan for all problems:: Patient seen and examined this morning. Concur with above. Ventilator has been gradualy weaned since yesterday and she has been maintained on CPAP since midnight with no respiratory distress and stable vital signs. ABG is normal this AM. WBC has increased slightly ? due to steroids. She is ready to be extubated but states she wants to wait until 10 AM when her family is present.
--- NOTE | 2019-08-22 09:30 | Progress Note ---
Subjective Date: 08/22/19 Time: 09:29 Principal diagnosis: Respiratory failure Interval history: This is a 64-year-old female who was admitted for respiratory failure and still remains on the ventilator this morning. She has been on a CPAP trial throughout the night and had a respiratory rate around 20 with her heart rate in the 70s and 80s. When I walk in the room this morning she remains on the ventilator but she is sitting up in bed playing on her iPad. The patient does have a dry erase board and is able to communicate with me by writing on the board. She denies any chest pain or pressure. She states she does not feel short of breath but she is on the ventilator still at this time. She is complaining of edema especially in the abdominal region in her thighs. She states that she still feels really full of fluid. She denies any fever, chills, nausea, vomiting, diarrhea. The patient is scheduled to be extubated today. The patient was diuresed with Lasix yesterday. However she still has an overall positive fluid balance. She received an additional dose of Lasix this morning as well. Exam Vital signs and Labs for Last 24 Hours: Temp Pulse Resp BP Pulse Ox 97.5 F L 77 22 146/80 H 93 L 08/22/19 09:00 08/22/19 09:00 08/22/19 09:00 08/22/19 09:00 08/22/19 09:00 Laboratory Results - last 24 hr 08/22/19 05:28: WBC 11.5 H D, RBC 4.11 L, Hgb 12.4, Hct 41.3, MCV 100.3 H, MCH 30.2, MCHC 30.1 L, RDW 14.8, Plt Count 377, MPV 9.0, Neut % (Auto) 92.5 H, Lymph % (Auto) 4.4 L, [place] % (Auto) 2.8, Eos % (Auto) 0.1, Baso % (Auto) 0.2, Neut # (Auto) 10.7 H, Lymph # (Auto) 0.5 L, [place] # (Auto) 0.3, Eos # (Auto) 0.0, Baso # (Auto) 0.0, Total Counted 100, Neutrophils % (Manual) 93 H, Lymphocytes % (Manual) 5 L, Monocytes % (Manual) 2, Platelet Estimate Normal 08/22/19 05:28: Sodium 151 H*, Potassium 3.2 L, Chloride 113 H, Carbon Dioxide 29 D, Anion Gap 12.2, BUN 42 H, Creatinine 0.71, Estimated Creat Clear 51, Estimated GFR 83, Est GFR ( Amer) 101, Glucose 109 H, Calcium 7.7 L 08/22/19 06:00: Specimen Source L radial, O2 % 28, ABG pH 7.36, ABG pCO2 41.4, ABG pO2 75.9 L, ABG HCO3 23.0, ABG Total CO2 24.3, ABG O2 Saturation 95, ABG Base Excess -2.4, Sam Test Acceptable, Vent Rate Cpap, PEEP 5 I & O for Last 24 hours: Intake & Output 08/19/19 08/20/19 08/21/19 08/22/19 23:59 23:59 23:59 23:59 Intake Total 3154 / 3239 3085 / 3247 3167 / 3235 847 / 847 Output Total 813 / 843 735 / 765 2382 / 2429 2301 / 2301 Balance 2341 / 2396 2350 / 2482 785 / 806 -1454 / -1454 Weight 113 lb 11.2 oz 121 lb 4.8 oz 124 lb 6 oz 124 lb 7 oz Microbiology Reports for the Last 24 Hours: Microbiology 08/18/19 06:45 Sputum - Endotracheal Tube Aspirate Gram Stain - Final 08/18/19 06:45 Sputum - Endotracheal Tube Aspirate Sputum Culture - Final Normal Respiratory Tracee Narrative: Telemetry strip shows sinus rhythm with a rate of 82. - Constitutional no acute distress, average body habitus - *Routine HEENT Exam Head: Present: normocephalic, atraumatic Eye: Present: EOMI, PERRL ENT: Present: mucous membranes moist - *Routine Neck Exam Present: supple, full ROM, normal carotid upstroke. Absent: JVD, carotid bruit, lymphadenopathy - *Routine Respiratory Exam Present: CTA bilaterally - *Routine Cardiovascular Exam Present: RRR, Normal S1, Normal S2. Absent: murmur - *Routine Abdominal Exam Present: soft, normoactive bowel sounds. Absent: tenderness - *Routine Extremities Exam Present: full ROM, pulses intact, normal capillary refill. Absent: cyanosis, clubbing, edema - *Routine Skin Exam Present: intact, warm. Absent: erythema, rash - *Routine Neurological Exam Present: alert, oriented X3 - Detailed Eye Exam Eyelids: Left normal inspection Progress Note: A&P (1) NSTEMI (non-ST elevated myocardial infarction) Status: Acute Current Visit: Yes (2) COPD with exacerbation Status: Acute Current Visit: Yes (3) Pneumonia Status: Acute Current Visit: Yes (4) Acute respiratory failure Status: Acute Current Visit: Yes (5) Leukocytosis Status: Acute Current Visit: No (6) Tobacco use disorder Status: Chronic Current Visit: No (7) Anxiety Status: Acute Current Visit: Yes (8) O2 dependent Status: Acute Current Visit: Yes (9) CAD (coronary artery disease) Status: Chronic Current Visit: No (10) Peripheral vascular disease Status: Acute Current Visit: Yes Assessment and Plan for All Diagnoses:: Plan: 1. The patient was admitted to the hospital and found to have pneumonia. The patient did have acute respiratory failure and remains on the ventilator this morning. She has been on a CPAP trial through the night. She is scheduled to be extubated this morning. 2. The patient does have a history of coronary artery disease. She does have an elevated troponin. She denies any chest pain or pressure. Her elevated tro ponin is most likely from demand ischemia, no plans for invasive cardiac testing at this time. 3. The patient may benefit from outpatient ischemic work-up once she recovers from her pneumonia. 4. The patient does have pneumonia. This is being treated per her primary care provider. Will defer. 5. Her blood pressure is acceptable this morning. 6. Her LDL goal is less than 55. 7. Tobacco cessation is advised and counseled. 8. Her ejection fraction is normal on echocardiogram. 9. The patient is complaining of edema in her abdomen and thighs. She states that this is a little bit better but is still present. She is very edematous on exam in her abdominal region. We will give her Lasix 40 mg IV twice daily. She did have some Lasix yesterday and did diurese well but her fluid balance was still positive. The patient likely has diastolic dysfunction. Her diastolic parameters were inconclusive on her echocardiogram. 10. Repeat a BMP in the morning. 11. Her potassium was low this morning. Her potassium is being repleted by her primary care provider. 12. Further recommendations will be made pending the patient's response to treatment. Thank you for the opportunity to help participate in the care of this patient.
[2019-08-22 13:47] LABS: Microscopic, Urine URINE MICROSCOPIC (MICROSCOPIC)
[2019-08-22 13:56] LABS: Appearance,Urine CLEAR (Clear); Blood, Urine 3+ (Negative); Color,Urine BROWN (Yellow); Glucose,Urine (UA) Negative (Negative); Ketones,Urine TRACE (Negative); Leukocyte Esterase,Urine Negative (Negative); PH,Urine 6.5 (5.0-8.5); Protein,Urine 2+ (Negative); Specific Gravity, Urine 1.025 (1.005-1.030); Urobilinogen,Urine 0.2 EU/dl (0.2)
[2019-08-22 14:42] LABS: Bilirubin,Urine Negative (Negative)
[2019-08-22 14:48] LABS: Amorphous Sediment,Urine 1+ /lpf; RBC,Urine TNTC #/hpf (0-3); Squamous Epithelial Cell,Urine Occasional #/hpf (0-5)
--- NOTE | 2019-08-25 14:06 | Discharge Summary ---
General - General Admission date:: 08/17/19 <Parth Calvin - 08/26/19 23:13> 08/17/19 <BrucelaneEssence - 08/25/19 14:09> Discharge date: 08/22/19 <Essence Bartholomew - 08/25/19 14:09> HPI HPI: is a 64-year-old female patient with a history of severe oxygen dependent COPD, tobacco use disorder, coronary artery disease, and previous pneumonia admissions who presented to [facility] emergency room with fever. She described being sick for 3 to 4 days and unable to keep her fever controlled. She had had a nonproductive cough, pleuritic type chest pain and shortness of breath. She used her DuoNeb treatments every 4 hours. She continued to smoke although she had not been able to smoke as much the past 3 to 4 days. She normally smokes a pack a day. With evaluation in the emergency room she was found to have a pneumonia, given DuoNeb treatment and IV steroids, and started on antibiotics. CTA of the chest was negative for PE. She was then admitted for further evaluation and treatment. <Essence Bartholomew - 08/25/19 14:09> Hospital Course Hospital Course: The patient's initial chest x-ray showed COPD with a sclerotic lesion of the left fourth rib. A CT was recommended. The patient's CTA shows no PE but it did show COPD with a pneumonia in the right lower lobe and left lower lobe. The patient was admitted and started on IV antibiotics, IV steroids, and duo nebs. She had a repeat chest x-ray on 08/16/2019 which showed COPD with interval improvement in the left upper lobe pneumonia. She continued to complain of chest pain, shortness of breath, and wheezing. She was also worried about some swelling in her hands and legs. The patient then became nervous and unable to sleep. It was felt this was a side effect of her steroids, therefore they were weaned. Her IV fluids were discontinued. Her blood cultures returned negative. On 08/18/2019, the patient went into respiratory failure and required intubation. She was stable on the ventilator and was sedated but could respond. Her sputum returned with normal respiratory valery. Her blood gases improved with intubation and her heart rhythm was fairly stable. She did have some elevated troponins, therefore cardiology was consulted. They felt the patient had had an NSTEMI secondary to respiratory distress. Her cardiac catheterization from 2017 showed mild to moderate coronary artery disease. They ordered an echo and it showed a preserved ejection fraction. Cardiology recommended adding low-dose b eta-gino for assistance and heart rate control in light of her NSTEMI. They also recommended continuing aspirin therapy. They felt the patient would need a cardiac cath when she was off the ventilator as she could not walk on a treadmill or tolerate a Lexiscan. Dr. Calvin tried to wean the patient off of the ventilator but her heart rate and blood pressure as well as her respiratory rate increased. She therefore remained on the vent. The patient had repeat chest x-rays which were stable. She did have venous Dopplers showing no evidence of DVT. She had an NG tube placed for tube feedings. She had a chest x-ray on 08/21/2019 which continued to show bilateral lower lobe pneumonia with bilateral effusions. She had gained 11 pounds in a few days, therefore she was given a dose of Lasix. The patient wanted the ET tube out and indicated that she did have some pain in her throat with the tube. The patient's oral tube did move out of place and was removed. The patient refused to have it reinserted and she also refused suctioning and turning. She was on CPAP throughout the night and her heart rate and respiratory rates were stable. ABGs the next morning were normal. The patient was extubated. Potassium was added due to hypokalemia. Apparently the patient made herself a DNR after extubation. She then decided to leave [place] on the evening of 08/22/2019. <Essence Bartholomew - 08/25/19 14:09> Objective Vital signs: Temp Pulse Resp BP Pulse Ox 97.6 F 91 H 16 137/94 H 94 L 08/22/19 18:00 08/22/19 18:00 08/22/19 18:00 08/22/19 18:00 08/22/19 18:00 <Parth Calvin - 08/26/19 23:13> Temp Pulse Resp BP Pulse Ox 97.6 F 91 H 16 137/94 H 94 L 08/22/19 18:00 08/22/19 18:00 08/22/19 18:00 08/22/19 18:00 08/22/19 18:00 <Essence Bartholomew - 08/25/19 14:09> Narrative: - Constitutional no acute distress, thin Comments: Sitting up in the bed. Has her glasses on. Watching a movie on her iPad. She appears comfortable and breathing is easy. Communicates easily. - *Routine Respiratory Exam Comments: Good bilateral breath sounds with scattered rhonchi - *Routine Cardiovascular Exam Present: RRR Comments: Showing sinus rhythm - *Routine Abdominal Exam Present: soft, normoactive bowel sounds Comments: She states abdomen feels full to palpation - *Routine Extremities Exam Absent: edema - *Routine Neurological Exam Present: alert, oriented X3 <Essence Bartholomew - 08/25/19 14:09> DS: Diagnosis - Discharge Diagnosis (1) NSTEMI (non-ST elevated myocardial infarction) Status: Acute (2) COPD with exacerbation Status: Acute (3) Pneumonia Status: Acute (4) Acute respiratory failure Status: Acute (5) Leukocytosis Status: Acute (6) Tobacco use disorder Status: Chronic (7) Anxiety Status: Acute (8) O2 dependent Status: Acute (9) CAD (coronary artery disease) Status: Chronic (10) Peripheral vascular disease Status: Acute <Essence Bartholomew - 08/25/19 13:55> (1) NSTEMI (non-ST elevated myocardial infarction) Status: Acute (2) COPD with exacerbation Status: Acute (3) Pneumonia Status: Acute (4) Acute respiratory failure Status: Acute (5) Leukocytosis Status: Acute (6) Tobacco use disorder Status: Chronic (7) Anxiety Status: Acute (8) O2 dependent Status: Acute (9) CAD (coronary artery disease) Status: Chronic (10) Peripheral vascular disease Status: Acute <Parth Calvin - 08/26/19 23:13> Discharge Plan - Patient Discharge Instructions Patient Instructions: Intubation and Mechanical Ventilation, Pneumonia-Adult, Heart Attack, Chronic Obstructive Pulmonary Disease, Hypothermia, DI for Chronic Obstructive Pulmonary Disease, DI for Pneumonia -- Adult, DI for Hypothermia, DI for Intubation Without Tracheostomy, Low-Sodium Diet, DI for Hypotension <Parth Calvin - 08/26/19 23:13> Forms: <Parth Calvin - 08/26/19 23:13> - Follow up Plan Follow up with: <Parth Calvin - 08/26/19 23:13> Disposition: Left Against Medical Advice <MarixaParth Nilson - 08/26/19 23:13> Home Medications: Home Medications Medication Instructions Recorded Confirmed Type Albuterol Sulfate [Albuterol HFA 2 puff IH Q4HP PRN 01/21/18 08/15/19 History Inhaler] Ropinirole HCl 1 mg PO HS 04/09/18 08/14/19 History Amitriptyline HCl [Elavil 10mg 10 mg PO HS 08/14/19 08/15/19 History tablet] Aspirin [Aspirin 81mg chewable 81 mg PO HS 08/14/19 08/14/19 History tab] Umeclidinium Brm/Vilanterol Tr 1 puff IH HS 08/14/19 08/14/19 History [Anoro Ellipta 62.5-25 Mcg INH] Fluticasone Propionate [Flovent 1 puff IH BID 08/15/19 08/15/19 History Diskus] Tramadol HCl [Tramadol 50mg 50 mg PO BIDP PRN 08/15/19 08/15/19 History Tab] <Parth Calvin - 08/26/19 23:13> Prescriptions/Medication Reconciliation: No Action Ropinirole HCl 1 mg PO HS Umeclidinium Brm/Vilanterol Tr [Anoro Ellipta 62.5-25 Mcg INH] 1 puff IH HS Aspirin [Aspirin 81mg chewable tab] 81 mg PO HS Amitriptyline HCl [Elavil 10mg tablet] 10 mg PO HS Tramadol HCl [Tramadol 50mg Tab] 50 mg PO BIDP PRN PRN Reason: Moderate Pain Albuterol Sulfate [Albuterol HFA Inhaler] 2 puff IH Q4HP PRN PRN Reason: Shortness Of Breath Or Wheezing Fluticasone Propionate [Flovent Diskus] 1 puff IH BID <Parth Calvin - 08/26/19 23:13> - Problem Reconciliation Problems Reviewed?: Yes <Parth Calvin - 08/26/19 23:13> Yes <Essence Bartholomew - 08/25/19 14:09> - Additional Information Additional Information: Patient left AMA before she could be counseled by his physician or the covering physician. She has a PCP in [place] with whom she should be following up with. <Parth Calvin - 08/26/19 23:13>
== END 2019-08-22 19:10 | disposition left against medical advice (07) | DRG 207 ==
LOC: 2ND 16:25 → ER 16:25 → 2ND 19:24
PROVIDERS: ADMIT Family Medicine; ATTEND Family Medicine
CPT/HCPCS: 36415; 71010; 71020; 71045; 71046; 71275; 74000; 74018; 80048; 80053; 81001; 82550; 82553; 82803; 82962; 83605; 84484; 85007; 85025; 86738; 87040; 87070; 87205; 87275; 87276; 93005; 93306; 93970; 94002; 94003; 94640; 94761; 96365; 96367; 96375; 99285; G0378; J0330; J0456; J2405; J2704; Q9967